=== PATIENT | male | born 1955 | race Caucasian/White ===

== ENCOUNTER 2016-09-25 09:14 | Outpatient (CLI) | payer MEDICARE ==
[2016-09-25] MEDS ORDERED: IOPAMIDOL-300 100 ML VIAL IVP ONE (10:40)
[2016-09-25] MEDS ORDERED: IOPAMIDOL-300 50 ML VIAL PO ONE (10:40)
--- NOTE | 2016-09-25 20:45 | CT Report ---
CONTRAST ENHANCED CT EXAM OF THE CHEST: 09/25/2016 CLINICAL HISTORY: A 60-year-old male with pain and cough as well as shortness of breath. COMPARISON: 07/02/2008 TECHNIQUE: Patient received 100 mL of Isovue-300 as a contrast agent. CAT scan of the chest was don e at 5 x 5 mm intervals with sagittal, coronal and axial reconstructions. In accordance with CT protocol optimization, one or more of the following dose reduction techniques w ere utilized for this exam: automated exposure control, adjustment of mA and/or KV based on patient size, or use of iterative reconstructive technique. FINDINGS: Mild right paratracheal, aorticopulmonary and anterior carinal adenopathy is once again no scout and unchanged. Normal cardiac size is seen with extensive coronary artery calcification noted in all three coronary arteries. Left lung shows no significant abnormality. Right lung demonstrates subpleural densities along the lateral aspect of the right upper lobe in asso ciation with mild adjacent parenchymal disease in the lateral aspect of the anterior segment of the r ight upper lobe. These findings were not evident on preceding chest CT from 2008. Most likely consi deration is an inflammatory process such as a pneumonia, either a developing pneumonia or a resolving one. Secondary consideration would be TB. Recommend patient be carefully followed. Suggest a repe at CT in 6-8 weeks for further evaluation. Axillary regions show no significant abnormality. Bones show no significant abnormality. Upper abdomen demonstrates normal adrenal glands. IMPRESSION: SEVERAL PROMINENT SUBPLEURAL DENSITIES ARE SEEN ALONG THE LATERAL ASPECT OF THE ANTERIOR SEGMENT OF T HE RIGHT UPPER LOBE IN ASSOCIATION WITH SOME ADJACENT MILD PARENCHYMAL DISEASE WITHIN THE RIGHT UPPER LOBE'S ANTERIOR SEGMENT. THESE FINDINGS WERE NOT EVIDENT ON PRIOR EXAMINATION FROM 07/02/2008. THE Y MOST LIKELY REPRESENT AN INFLAMMATORY PROCESS. PRIMARY CONSIDERATION IS A ROUTINE COMMUNITY ACQUIR ED PNEUMONIA. SECONDARY POSSIBILITY IS TB. RECOMMEND A REPEAT CT OF THE CHEST IN 6-8 WEEKS FOR FURT HER EVALUATION. MILD MEDIASTINAL ADENOPATHY IS ONCE AGAIN NOTED AND UNCHANGED COMPARED TO 07/02/2008. NORMAL CARDIAC SIZE IS NOTED WITH EXTENSIVE CORONARY ARTERY CALCIFICATION SEEN. JOB #: [id number] [id number] JOB #:[id number]
--- NOTE | 2016-09-25 21:23 | CT Report ---
CONTRAST ENHANCED CT EXAM OF THE ABDOMEN AND PELVIS: 09/25/2016 COMPARISON: 02/22/[address] exam of the abdomen and pelvis. TECHNIQUE: Contrast enhanced CT of the abdomen and pelvis was done immediately after patient's contr ast enhanced chest CT. Axial, coronal and sagittal reconstructions were obtained at 5 x 5 mm interva ls. In accordance with CT protocol optimization, one or more of the following dose reduction techniques w ere utilized for this exam: automated exposure control, adjustment of mA and/or KV based on patient size, or use of iterative reconstructive technique. FINDINGS: Liver and spleen appear normal. Pancreas appears normal. Gallbladder shows no wall thick ening. The pancreatic duct is seen. It is slightly prominent, but most likely normal. It at most m easures 2-3 mm in diameter. Common hepatic, common bile duct appear normal. Adrenal glands are normal. Kidneys show no significant abnormality. No pyelocalyceal system dilatat ion is seen. Ureters are not distended. Bladder shows no obvious abnormality. Periaortic and pericaval region demonstrates extensive calcification in the abdominal aorta. Extensi ve calcification is seen at the origin of each renal artery. Calcification is seen in the proximal a spect of the superior mesenteric artery, but is not seen involving the celiac artery. Extensive calc ification is noted in the common iliac arteries and proximal femoral arteries. No significant adenop athy is seen. Bowel gas pattern shows numerous diverticula in the proximal to mid sigmoid colon. Normal small kareem l is seen. Previously noted diverticulitis on 02/22/2016 has completely resolved. There is no evide nce of diverticulitis seen involving the sigmoid colon on today's exam. Bones demonstrate left total hip prosthesis in place in anatomical position and alignment. Anterior spurring and degenerative disk disease is noted in the lumbar spine. Anterior spurring is seen in th e thoracic spine. IMPRESSION: SIGNIFICANT DIVERTICULOSIS IS ONCE AGAIN NOTED INVOLVING THE SIGMOID COLON WITHOUT EVIDENCE OF DIVERT ICULITIS. EXTENSIVE ATHEROSCLEROSIS INVOLVING THE ABDOMINAL AORTA AND THE ORIGIN WELL THE PROXIMAL ASPECT OF EACH RENAL ARTERY. LEFT TOTAL HIP PROSTHESIS IS SEEN IN PLACE. JOB #: [id number] EXT JOB #:[id number]
== END 2016-09-25 09:15 | disposition home or self-care (01) ==
LOC: DI 09:14
PROVIDERS: ATTEND Physician Assistant
DX: R10.9 Unspecified abdominal pain (principal); I25.10 Atherosclerotic heart disease of native coronary artery without angina pectoris; R91.8 Other nonspecific abnormal finding of lung field; R59.0 Localized enlarged lymph nodes; K57.30 Diverticulosis of large intestine without perforation or abscess without bleeding; I70.0 Atherosclerosis of aorta; R10.30 Lower abdominal pain, unspecified
CPT/HCPCS: 71260; 74177; Q9967

== ENCOUNTER 2018-06-22 13:30 | Outpatient (CLI) | payer MEDICARE ==
--- NOTE | 2018-06-23 15:21 | XRAY Report ---
Reason: Cervicalgia Procedure Date: 06/22/2018 Accession Number: [id number] / [id number] Procedure: XR - Cervical Spine 2 View CPT Code: FULL RESULT: EXAM: CERVICAL SPINE RADIOGRAPHY EXAM DATE: 06/22/2018 02:38 PM. CLINICAL HISTORY: Cervicalgia. COMPARISONS: None. TECHNIQUE: 3 views. FINDINGS: Alignment: Cervical spine and head are tilted towards the left. However, no significant intrinsic scoliosis of the cervical spine is demonstrated. There is approximately 2 mm, grade 1 anterolisthesis at C2-C3, 2 mm, grade 1 retrolisthesis at C3-C4, 2 mm, grade 1 retrolisthesis at C4-C5, and 2 mm, grade 1 retrolisthesis at C5-C6. There is osseous overlap of the odontoid view, rendering it somewhat suboptimal. The lateral masses of C1 appear grossly aligned on the lateral masses of C2. Bones: As described above, there is somewhat suboptimal evaluation of C1-C2 due to osseous overlap on the odontoid view. However, within this limitation, no conspicuous fracture is identified. Disks: There is severe disk height loss at C5-C6 with moderate endplate spurring. Moderate disk height loss and mild spurring present at C3-C4, C4-C5, C6-C7, and C7-T1. Facets: There appears to be ankylosis or partial ankylosis of the C2-C3 facets. Moderate-severe facet degeneration present at C3-C4 and C7-T1. Mild facet degeneration present elsewhere. Soft Tissues: No prevertebral soft tissue swelling. Visualized lung apices are clear. IMPRESSION: 1. Somewhat suboptimal evaluation of C1-C2 secondary to osseous overlap on the odontoid view. 2. Multilevel degenerative changes, as described above. This includes severe degenerative disk disease at C5-C6 and moderate-severe facet degeneration at C3-C4 and C7-T1. 3. Grade 1 anterolisthesis at C2-C3 and grade 1 retrolisthesis at C3-C4, C4-C5, and C5-C6. RADIA
--- NOTE | 2018-06-23 15:41 | XRAY Report ---
Reason: CERVICALGIA,PAIN IN THORACIC SPINE,SPINAL STENOSIS Procedure Date: 06/22/2018 Accession Number: [id number] / [id number] Procedure: XR - Thoracic Spine 2 View CPT Code: FULL RESULT: EXAM: THORACIC SPINE RADIOGRAPHY EXAM DATE: 06/22/2018 02:38 PM. CLINICAL HISTORY: Thoracic spine pain. COMPARISON: None. TECHNIQUE: 2 views. FINDINGS: Alignment: There is suboptimal evaluation of T1 and T2 on lateral view secondary to osseous overlap with the shoulders. However, no spondylolisthesis is demonstrated. There is mild apex right curvature of the thoracic spine with Hannah angle of approximately 12 degrees from T5-T11. Bones: As described above, partial obscuration of the upper thoracic spine from osseous overlap. However, no conspicuous acute fracture is demonstrated. Disks: Moderate multilevel degenerative disk disease is present throughout the thoracic spine with disk height loss and endplate spurring. Soft Tissues: The visualized portions of the lungs are clear. IMPRESSION: 1. Suboptimal evaluation of T1 and T2 secondary to osseous overlap with the shoulders. 2. Moderate multilevel degenerative disk disease throughout the thoracic spine. RADIA ADDENDUM: 06/23/18 15:42 Addendum is made to the impression. 3. Dextroscoliosis of the thoracic spine.
--- NOTE | 2018-06-23 15:54 | XRAY Report ---
Reason: CERVICALGIA,PAIN IN THORACIC SPINE,SPINAL STENOSIS Procedure Date: 06/22/2018 Accession Number: [id number] / [id number] Procedure: XR - Lumbar Spine 2 View CPT Code: FULL RESULT: EXAM: LUMBOSACRAL SPINE RADIOGRAPHY EXAM DATE: 06/22/2018 02:38 PM. CLINICAL HISTORY: Back pain. COMPARISONS: CT of the abdomen and pelvis from 09/25/2016. TECHNIQUE: 3 views. FINDINGS: Alignment: There is levoscoliosis of the lumbar spine with Hannah angle of 17 degrees from L1-L4. Bones: Five [id number] lumbar vertebral bodies are present. No acute fracture. Disks: Severe disk height loss at L3-L4 with endplate sclerosis and spurring. This is asymmetrically greater on the right secondary to levoscoliosis. Severe disk height loss with endplate sclerosis and spurring also present at L5-S1. Moderate-severe disk height loss present at L4-L5. Facets: Moderate-severe facet degeneration in the lower lumbar spine. Sacroiliac Joints: Alignment is within normal limits. Soft Tissues: The visualized bowel gas pattern is unremarkable. Aortic and iliac artery calcifications demonstrated. IMPRESSION: 1. Multilevel degenerative change, including severe degenerative disk disease at L3-L4 and L5-S1. 2. Mild levoscoliosis of the lumbar spine. RADIA
== END 2018-06-22 13:31 | disposition home or self-care (01) ==
LOC: DI 13:30
PROVIDERS: ATTEND Physician Assistant
DX: M50.31 Other cervical disc degeneration, high cervical region (principal); M47.9 Spondylosis, unspecified; M43.12 Spondylolisthesis, cervical region; M51.34 Other intervertebral disc degeneration, thoracic region; M41.84 Other forms of scoliosis, thoracic region; M51.36 Other intervertebral disc degeneration, lumbar region; M51.37 Other intervertebral disc degeneration, lumbosacral region; M41.86 Other forms of scoliosis, lumbar region
CPT/HCPCS: 72040; 72070; 72100

== ENCOUNTER 2018-08-26 15:31 | Emergency (ER) | payer MEDICARE ==
[2018-08-26] MEDS ORDERED: LIDOCAINE 1%-EPI 1:100000 30 ML MDV SUBQ STA (15:48)
--- NOTE | 2018-08-26 15:50 | ED Physician Documentation ---
History of Present Illness - Stated complaint Stated Complaint: LT KNEE PX - Chief complaint Chief Complaint: Ext Problem - History obtained from History obtained from: Patient - History of Present Illness Timing: Other (62-year-old gentleman with oral medication controlled type 2 diabetes presents with about 5 days of progressive anterior left knee pain similar to a remote bursitis he had in the other knee about 30 years ago. He denies any fevers or chills. He went to the clinic today and they referred him here for concern for septic joint.) Review of Systems Constitutional: denies: Fever, Chills, Myalgias, Fatigue Nose: reports: Reviewed and negative Cardiac: reports: Reviewed and negative Respiratory: reports: Reviewed and negative PD PAST MEDICAL HISTORY - Past Medical History Cardiovascular: Hypertension, High cholesterol Respiratory: COPD Endocrine/Autoimmune: Other GI: Pancreatitis, Other : None HEENT: None Psych: None Musculoskeletal: Osteoarthritis, Chronic back pain Derm: None - Past Surgical History Past Surgical History: Yes General: Colonoscopy HEENT: Tonsil/Adenoidectomy - Present Medications Home Medications: Ambulatory Orders Medication Instructions Recorded Confirmed Albuterol Sulfate [Proventil Hfa] 1 puffs DAILY 06/14/15 02/22/16 Aspirin [Denise Chewable] 81 mg PO DAILY 06/14/15 02/22/16 Budesonide/Formoterol Fumarate 1 puffs BID 06/14/15 02/22/16 [Symbicort 160-4.5 Mcg Inhaler] Cholecalciferol (Vitamin D3) 5,000 unit PO DAILY 06/14/15 02/22/16 [Vitamin D] Cyclobenzaprine [Flexeril] 1 tab BID 06/14/15 02/22/16 Metoprolol Tartrate [Lopressor] 150 mg PO BID 06/14/15 02/22/16 RX: Losartan Potassium 1 tab DAILY 06/14/15 02/22/16 RX: Magnesium Citrate [Citroma] 296 ml PO DAILY PRN #2 bottle 06/14/15 02/22/16 RX: oxyCODONE [Roxicodone] 5 mg DAILY 06/14/15 02/22/16 Tiotropium [place] [Spiriva] 1 puffs DAILY 06/14/15 02/22/16 Ciprofloxacin HCl [Cipro] 500 mg PO BID #20 tablet 02/22/16 Docusate Sodium 250Mg Capsule 250 mg PO DAILY #30 capsule 02/22/16 [Colace 250Mg Capsule] Metronidazole [Flagyl] 500 mg PO BID #20 tablet 02/22/16 RX: amLODIPine [Norvasc] 10 mg PO DAILY 02/22/16 02/22/16 Cephalexin [Keflex] 500 mg PO Q6H #28 capsule 08/26/18 - Allergies Allergies/Adverse Reactions: Allergies Allergy/AdvReac Type Severity Reaction Status Date / Time hydrochlorothiazide Allergy Severe Emesis Verified 08/26/18 15:41 acetaminophen [From Vicodin] Allergy Intermediate Itching Verified 08/26/18 15:41 hydrocodone bitartrate * Allergy Intermediate Itching Verified 08/26/18 15:41 [From Vicodin] BLAS Inhibitors Allergy Unknown Verified 08/26/18 15:41 codeine AdvReac Respiratory Verified 08/26/18 15:41 - Social History Does the pt smoke?: Yes Smoking Status: Current every day smoker Does the pt drink ETOH?: Yes Does the pt have substance abuse?: No - Immunizations Immunizations are current?: Yes PD ED PE NORMAL - Vitals Vital signs reviewed: Yes - General General: Alert and oriented X 3, No acute distress - Derm Derm: Normal color, Warm and dry - Extremities Extremities: Other (Mild redness over the anterior left patella but without really any patellar effusion. There is a small knee effusion. Passive range of motion is not super painful but it is painful. He is able to walk and bear weight but with a limp.) - Neuro Neuro: Alert and oriented X 3, Normal speech Results - Vitals Vitals: Vital Signs - 24 hr 08/26/18 08/26/18 15:39 17:10 Temperature 36.7 C 36.5 C Heart Rate 91 84 Respiratory 14 16 Rate Blood Pressure 167/70 H 151/72 H O2 Saturation 96 96 Oxygen O2 Source Room air - Labs Labs: Laboratory Tests 08/26/18 16:00 Fluid Source SYNOVIAL Fluid Color BLOODY Fluid Clarity BLOODY Fluid WBC 0 Fluid RBC 8030 Procedures - Arthrocentesis Joint: Knee, Left Preparation: Consent obtained, Sterile prep and drape Anesthesia: Lidocaine 1% Fluid: Bloody, Sent for cell count, Sent for culture, Fluid obtained - cc (2ml) Departure - Departure Disposition: 01 Home, Self Care Clinical Impression: Bursitis, prepatellar, left Condition: Good Record reviewed to determine appropriate education?: Yes Instructions: ED Bursitis Prescriptions: Cephalexin [Keflex] 500 mg PO Q6H #28 capsule Comments: The knee fluid itself looks fine, there is no evidence of infection. Return if it becomes more puffy, we may need to incise it if that happens. Follow-up with your doctor in 2 days for wound check. Also return if worse or feverish. Discharge Date/Time: 08/26/18 17:12
[2018-08-26] MEDS ORDERED: cephALEXin 250 MG CAPSULE PO STA (17:06)
[2018-08-26 17:11] VITALS: BP 151/72
[2018-08-26 17:13] LABS: BF SOURCE SYNOVIAL; CC,BF RBC 8030 /mm^3
[2018-08-26 17:14] LABS: BF COLOR BLOODY
== END 2018-08-26 17:12 | disposition home or self-care (01) ==
LOC: ED 15:31
DX: M70.42 Prepatellar bursitis, left knee (principal); I10 Essential (primary) hypertension; E11.9 Type 2 diabetes mellitus without complications; Z79.84 Long term (current) use of oral hypoglycemic drugs; F17.200 Nicotine dependence, unspecified, uncomplicated
CPT/HCPCS: 20610; 87070; 87205; 89051; 99283; A9270

== ENCOUNTER 2019-05-15 16:24 | Outpatient (CLI) | payer MEDICARE ==
--- NOTE | 2019-05-15 23:34 | Ultrasound Report ---
Reason: LOWER ABD PAIN Procedure Date: 05/15/2019 Accession Number: [id number] / [id number] Procedure: US - Abdomen Complete CPT Code: Final Report FULL RESULT: EXAM: ABDOMEN ULTRASOUND EXAM DATE: 05/15/2019 04:31 PM. CLINICAL HISTORY: Lower abdominal pain. COMPARISON: ABDOMEN/PELVIS W/ 09/25/2016 10:30 AM. TECHNIQUE: Real-time scanning was performed with static images obtained. FINDINGS: Liver: Nodular liver margin consistent with cirrhosis. Echogenic focus with hypoechoic periphery in the anterior liver measuring 1.4 x 1.1 x 1.2 cm. 24 cm. Main portal vein flow: Hepatopetal. Gallbladder: Focal thickening at the fundus measuring 3.6 mm. This is nonspecific in the setting of ascites. No gallstones are seen. No sonographic Hilliard sign. Biliary System: Common bile duct measures 5 mm. No intrahepatic or extrahepatic ductal dilatation. Pancreas: Pancreas is not well seen due to bowel gas. Visualized portions appear normal. Kidneys: Right: 11.0 cm longitudinally. Normal. No contour-deforming mass, stones, or hydronephrosis. Left: 12.0 cm longitudinally. Upper pole cyst measuring 0.9 x 0.8 x 0.7 cm. No contour-deforming mass, stones, or hydronephrosis. Spleen: 14.2 x 5.0 x 14.4 cm. Volume 533 cc. Splenule measuring 1.0 x 1.0 x 1.3 cm. Aorta and Inferior Vena Cava: Unremarkable where seen. Other: Large amount of ascites. IMPRESSION: 1. Enlarged liver measuring 24 cm. Nodular liver margin consistent with cirrhosis. 2. Large amount of ascites. 3. No cholelithiasis or cholecystitis identified. 4. No biliary dilatation seen. 5. Echogenic focus in the anterior liver measuring 1.4 x 1.1 x 1.2 cm with hypoechoic rim. Possible hemangioma. 6. Splenomegaly. RADIA
== END 2019-05-15 16:25 | disposition home or self-care (01) ==
LOC: DI 16:24
PROVIDERS: ATTEND Registered Nurse
DX: R18.8 Other ascites (principal); R16.2 Hepatomegaly with splenomegaly, not elsewhere classified
CPT/HCPCS: 76700

== ENCOUNTER 2019-07-29 07:39 | Outpatient (CLI) | payer MEDICARE ==
[2019-07-29 12:17] LABS: BF CLARITY HAZY; BF COLOR STRAW; CC,BF RBC 1000 /mm^3
--- NOTE | 2019-07-29 12:20 | Ultrasound Report ---
Reason: ALCOHOLIC CIRRHOSIS OF LIVER WITH ASCITES Procedure Date: 07/29/2019 Accession Number: [id number] / [id number] Procedure: US - Abdominal Paracentesis CPT Code: Final Report FULL RESULT: EXAM: ULTRASOUND-GUIDED PARACENTESIS EXAM DATE: 07/29/2019 10:45 AM. CLINICAL HISTORY: ALCOHOLIC CIRRHOSIS OF LIVER WITH ASCITES. COMPARISON: ABDOMEN COMPLETE 05/15/2019 4:31 PM ABDOMEN/PELVIS W/ 09/25/2016 10:30 AM. TECHNIQUE: Risks, benefits, and alternatives to the procedure were discussed with the patient. All questions answered. Written and verbal consent obtained. Patient was placed in the supine position and the skin overlying the right lower quadrant ascites marked with sonographic guidance. The skin was sterilely prepped and draped, and 1% buffered lidocaine was used for local anesthesia. An 18-gauge Strix Systemseh catheter was advanced into the peritoneal ascites and fluid aspirated. Upon completion, the catheter was removed. Fluid was sent to the laboratory for evaluation as requested by the referring provider. FINDINGS: A total of 5700 mL of fluid was removed without immediate complication. Patient tolerated procedure well. IMPRESSION: Ultrasound-guided paracentesis without immediate complications. Fluid sent to the laboratory for evaluation. RADIA
[2019-07-29 12:26] LABS: LYMPHOCYTES %,BODY FLUID 29; MESOTHELIAL %, BF 26 %; MONOCYTES %,BODY FLUID 4 %
[2019-07-29 12:28] LABS: BF SOURCE PERITONEAL
--- NOTE | 2019-07-29 12:55 | Ultrasound Report ---
Reason: ALCOHOLIC CIRRHOSIS OF LIVER WITH ASCITES Procedure Date: 07/29/2019 Accession Number: [id number] / [id number] Procedure: US - Arterial Visceral Complete CPT Code: Final Report FULL RESULT: EXAM: ABDOMINAL ULTRASOUND WITH VASCULAR IMAGING OF THE LIVER EXAM DATE: 07/29/2019 11:59 AM. CLINICAL HISTORY: ALCOHOLIC CIRRHOSIS OF LIVER WITH ASCITES. COMPARISON: ABDOMEN COMPLETE 05/15/2019 4:31 PM ABDOMEN/PELVIS W/ 09/25/2016 10:30 AM ABDOMEN/PELVIS W/ 02/22/2016 7:56 PM ABDOMEN/PELVIS W/ 06/14/2015 3:12 PM. TECHNIQUE: Real-time sonographic vascular imaging was performed by the community theater actor through the liver with a linear transducer utilizing color-flow, Doppler flow, and spectral analysis. Multiple sales service representative static images were saved for review. FINDINGS: Liver: 22 cm longitudinally. Nodular contour with increased echogenicity. Anterior right lobe vascular echogenic focus 1.8 x 1.5 x 1.0 cm stable compared to the prior ultrasound of 05/15/2019, question hemangioma. Hepatic Vascularity: 1. The hepatic artery is patent, peak systolic velocity 139 cm/sec. 2. Portal vein is patent with normal directional blood flow. Maximum diameter 2.2 cm. 3. Hepatic veins are patent. Gallbladder: Negative. No stones. Wall thickness 2.1 mm Common bile duct 3.9 mm. Pancreas: Imaged portions appear normal. Kidneys: Right 11.1 cm is longitudinally. No stones, hydronephrosis, or solid mass. Left 12.4 cm longitudinally. 8 x 8 x 6 mm lateral midportion cyst. No solid mass, stones, or hydronephrosis. Spleen: 13.8 cm longitudinally. Volume 354 cc. Aorta and inferior vena cava: Unremarkable Fluid: Small amount. Exam is performed status post paracentesis. IMPRESSION: 1. Hepatomegaly with cirrhotic configuration of the liver. 2. Echogenic 1.8 x 1.5 x 1.0 cm focus anterior liver, probably a hemangioma, similar to previous. 3. Normal directional portal venous blood flow. Maximum portal vein diameter 2.2 cm. 4. Borderline splenomegaly. 5. Small amount of residual ascites status post paracentesis. 6. Sub-centimeter left renal cyst.
[2019-07-30] MEDS ORDERED: BUFFERED LIDOCAINE 10 ML SYRINGE IU ONE (13:15)
== END 2019-07-29 07:40 | disposition home or self-care (01) ==
LOC: DI 07:39
PROVIDERS: ATTEND Internal Medicine Gastroenterology
DX: K70.31 Alcoholic cirrhosis of liver with ascites (principal)
CPT/HCPCS: 49083; 81599; 89051; 93306; 93975

== ENCOUNTER 2019-10-12 12:59 | Outpatient (CLI) | payer MEDICARE ==
--- NOTE | 2019-10-12 17:00 | Ultrasound Report ---
Reason: ALCOHOL DEPENDENCE,UNCOMPLICATED Procedure Date: 10/12/2019 Accession Number: [id number] / [id number] Procedure: US - Aorta Screening CPT Code: Final Report FULL RESULT: PROCEDURE: Aorta Screening INDICATIONS: ALCOHOL DEPENDENCE,UNCOMPLICATED TECHNIQUE: Real time scanning was performed of the aorta and iliac arteries, with image documentation. COMPARISON: Abdomen ultrasound 05/15/2019 FINDINGS: Aorta: Proximal aortic diameter measures 2.2 x 2.1 cm. Mid and distal aorta is not visualized secondary to ascites. Iliac arteries: Not visualized secondary to ascites. IMPRESSION: Proximal aorta is unremarkable. Mid and distal portions as well as common iliac arteries aren't secured by prominent abdominal ascites. Reviewed by: Candice Nieto MD on 10/12/2019 4:59 PM PDT Approved by: Candice Nieto MD on 10/12/2019 4:59 PM PDT Station ID: [id number]
== END 2019-10-12 13:00 | disposition home or self-care (01) ==
LOC: DI 12:59
PROVIDERS: ATTEND Family Medicine
DX: Z01.89 Encounter for other specified special examinations (principal)
CPT/HCPCS: 76706

== ENCOUNTER 2020-02-25 09:02 | Outpatient (CLI) | payer MEDICARE | END 2020-02-25 09:03 | disposition home or self-care (01) | LOC: LAB 09:02 | PROVIDERS: ATTEND Internal Medicine | DX: Z53.9 Procedure and treatment not carried out, unspecified reason (principal) ==

== ENCOUNTER 2020-02-25 09:03 | Outpatient (CLI) | payer MEDICARE ==
[2020-02-25 09:55] LABS: BASOPHILS # (AUTO) 0.1 10^3/uL (0.0-0.1); BASOPHILS % (AUTO) 0.7 %; EOSINOPHILS # (AUTO) 0.2 10^3/uL (0.0-0.7); HGB - HEMOGLOBIN 12.4 g/dL (14.0-18.0); LYMPHOCYTES # (AUTO) 1.2 10^3/uL (1.5-3.5); LYMPHOCYTES % (AUTO) 14.3 %; MEAN CORPUSCULAR HEMOGLOBIN 32.2 pg (27.0-31.0); MEAN CORPUSCULAR HGB CONC 33.6 g/dL (32.0-36.0); MEAN CORPUSCULAR VOLUME 95.8 fL (80.0-94.0); MEAN PLATELET VOLUME 8.3 fL (7.4-11.4); MONOCYTES # (AUTO) 0.6 10^3/uL (0.0-1.0); MONOCYTES % (AUTO) 6.8 %; NEUTROPHILS # (AUTO) 6.2 10^3/uL (1.5-6.6); NEUTROPHILS % (AUTO) 75.7 %; PLT - PLATELET COUNT 192 10^3/uL (130-450); RED BLOOD COUNT 3.85 10^6/uL (4.70-6.10); RED CELL DISTRIBUTION WIDTH 13.1 % (12.0-15.0); WHITE BLOOD COUNT 8.1 x10^3/uL (4.8-10.8)
[2020-02-25 09:59] LABS: INR 1.2 (0.8-1.2); PT - PROTHROMBIN TIME 13.5 secs (9.9-12.6)
[2020-02-25 10:12] LABS: PARTIAL THROMBOPLASTIN TIME 30.5 secs (24.9-33.3)
--- NOTE | 2020-02-25 12:11 | Ultrasound Report ---
PROCEDURE: Abdominal Paracentesis INDICATIONS: ASCITIES DUE TO ALCOHOLIC CIRRHOSIS TECHNIQUE: The indications, alternatives, benefits, risks, and complications of the procedure were explained to the patient. Written informed consent was obtained and placed in the chart. The abdomen and pelvis were examined sonographically, and an appropriate site was chosen for paracentesis. The skin was pre pared and draped in the usual sterile fashion, and 1% lidocaine was infiltrated from the skin down th rough the peritoneal surface. A 19-gauge catheter-covered needle was then introduced into the perito connor space, the catheter was advanced and the needle was withdrawn, and thereafter peritoneal fluid w as withdrawn. The catheter was then removed and a dressing was applied. The fluid was discarded if the clinician did not order diagnostic testing of the fluid. COMPARISON: FINDINGS: Access site: Right lower quadrant Needle: One-Step centesis catheter with introducer needle. Fluid volume and description: 5 L clear yellow Fluid sent for diagnostic testing: None Medications: 1% lidocaine for local anaesthesia. Complications: None. IMPRESSION: Successful ultrasound-guided paracentesis. Reviewed by: Candice Nieto MD on 02/25/2020 12:09 PM PDT Approved by: Candice Nieto MD on 02/25/2020 12:09 PM PDT Station ID: [id number]
--- NOTE | 2020-02-25 12:38 | Ultrasound Report ---
PROCEDURE: Abdominal ultrasound complete INDICATIONS: ALCOHOLIC CIRRHOSIS TECHNIQUE: Real time scanning was performed of the aorta, celiac trunk, superior and inferior mesent kelsey arteries, with color and pulsed Doppler interrogation of the mesenteric vessels. COMPARISON: FINDINGS: The liver is enlarged with a heterogenous echotexture with irregular margins consistent with history of cirrhosis. There is a moderate amount of ascites. In the anterior dome of the right lobe of the l iver there is a 1.4 x 1.2 x 1.8 cm hyperechoic mass. The aorta and IVC are patent. The hepatic vein is patent. The right kidney has a normal size and appearance with normal vascularity. The spleen is normal. Sple mandy varices are noted. No intrahepatic biliary ductal dilatation. The pancreas is mostly obscured. Th e gallbladder is normal with no stones, wall thickening, or pericholecystic fluid. The left kidney rodriguez s a normal size and appearance with normal vascularity. Simple cysts measuring 1.3 cm on the right 1 cm on the left are noted. The common bile duct measures 3.7 mm. IMPRESSION: 1. Echogenic 1.4 x 1.2 x 1.8 cm focus in the right lobe of the liver anteriorly is unchanged compared to prior ultrasounds and is most consistent with a hemangioma. 2. Simple renal cysts. 3. Hepatomegaly and cirrhosis. 3. Ascites. Reviewed by: Lee Crystal on 02/25/2020 12:36 PM PDT Approved by: Lee Crystal on 02/25/2020 12:36 PM PDT Station ID: [id number]
== END 2020-02-25 09:04 | disposition home or self-care (01) ==
LOC: DI 09:03
PROVIDERS: ATTEND Nurse Practitioner Family
DX: K70.31 Alcoholic cirrhosis of liver with ascites (principal); N28.1 Cyst of kidney, acquired
CPT/HCPCS: 36415; 49083; 76700; 85025; 85610; 85730; 93975

== ENCOUNTER 2020-02-25 09:08 | Outpatient (CLI) | payer MEDICARE ==
--- NOTE | 2020-02-26 10:44 | Ultrasound Report ---
PROCEDURE: Abdomen Complete INDICATIONS: Alcoholic CIRRHOSIS OF LIVER W/ASCITES TECHNIQUE: Real-time scanning was performed of the abdominal and retroperitoneal organs, with image documentatio n. COMPARISON: Abdomen ultrasound 05/15/2019, CT abdomen pelvis 09/25/2016. FINDINGS: Liver: Liver is enlarged measuring 22.2 cm. There is a diffuse nodular appearance. Within the anteri or right dome there is a focus of nodular central area increased echogenicity measuring 14 x 12 x 18 mm. Peripherally there is adjacent low echogenicity. It is unchanged compared to recent ultrasound. T here is a focus of hypoattenuation within this region on CT 2017. Gallbladder: Color wall is within normal limits measuring 2 mm. No visualized stone. Biliary ducts: Intrahepatic bile ducts are non-dilated. Extrahepatic bile duct caliber measures 4 m m. Normal is 6-7 mm or less in diameter, or 10 mm or less post-cholecystectomy. Pancreas: Visualized portions of the pancreas are sonographically normal. Spleen: Spleen is normal in size and homogeneous in echotexture. Kidneys: Kidneys are normal in size and echotexture. Right kidney measures 9.8 cm long; left kidney measures 11 cm long. No hydronephrosis or nephrolithiasis. No solid masses. Bilateral simple cyst s are noted measuring 13 x 11 x 11 mm on the right and 11 x 8 x 10 mm on the left. Aorta: Visualized aorta is normal in caliber at less than 3 cm. Iliacs: Proximal common iliac arteries are nonvisualized IVC: Intrahepatic inferior vena cava is patent. Miscellaneous: Abdominal ascites is present. IMPRESSION: Unchanged hepatic echogenic focus as above compared to ultrasound of 05/15/2019. Hypodensity within th is region was present on prior CT 2017. This could represent a possible hemangioma, given stability. However, given underlying appearance of cirrhosis, continued surveillance is recommended, as hepatoce llular carcinoma cannot be definitively excluded. Reviewed by: Candice Nieto MD on 02/25/2020 4:00 PM PDT Approved by: Candice Nieto MD on 02/25/2020 4:00 PM PDT Station ID: [id number]
== END 2020-02-25 09:09 | disposition home or self-care (01) ==
LOC: DI 09:08
PROVIDERS: ATTEND Internal Medicine Gastroenterology
DX: K70.31 Alcoholic cirrhosis of liver with ascites (principal)
CPT/HCPCS: 76700

== ENCOUNTER 2020-04-14 11:51 | Outpatient (CLI) | payer MEDICARE ==
[2020-04-14 12:33] LABS: BASOPHILS # (AUTO) 0.1 10^3/uL (0.0-0.1); BASOPHILS % (AUTO) 0.9 %; EOSINOPHILS # (AUTO) 0.2 10^3/uL (0.0-0.7); EOSINOPHILS % (AUTO) 1.9 %; HGB - HEMOGLOBIN 11.9 g/dL (14.0-18.0); LYMPHOCYTES % (AUTO) 10.9 %; MEAN CORPUSCULAR HEMOGLOBIN 31.6 pg (27.0-31.0); MEAN CORPUSCULAR HGB CONC 32.5 g/dL (32.0-36.0); MEAN CORPUSCULAR VOLUME 97.3 fL (80.0-94.0); MEAN PLATELET VOLUME 8.6 fL (7.4-11.4); MONOCYTES # (AUTO) 0.8 10^3/uL (0.0-1.0); MONOCYTES % (AUTO) 8.5 %; NEUTROPHILS # (AUTO) 6.8 10^3/uL (1.5-6.6); NEUTROPHILS % (AUTO) 77.1 %; PLT - PLATELET COUNT 224 10^3/uL (130-450); RED BLOOD COUNT 3.76 10^6/uL (4.70-6.10); RED CELL DISTRIBUTION WIDTH 13.1 % (12.0-15.0); WHITE BLOOD COUNT 8.8 x10^3/uL (4.8-10.8)
[2020-04-14 12:42] LABS: INR 1.2 (0.8-1.2); PT - PROTHROMBIN TIME 13.2 secs (9.9-12.6)
--- NOTE | 2020-04-14 16:38 | Ultrasound Report ---
PROCEDURE: Abdominal Paracentesis INDICATIONS: ASCITES TECHNIQUE: The indications, alternatives, benefits, risks, and complications of the procedure were explained to the patient. Written informed consent was obtained and placed in the chart. The abdomen and pelvis were examined sonographically, and an appropriate site was chosen for paracentesis. The skin was pre pared and draped in the usual sterile fashion, and 1% lidocaine was infiltrated from the skin down th rough the peritoneal surface. A 19-gauge catheter-covered needle was then introduced into the perito connor space, the catheter was advanced and the needle was withdrawn, and thereafter peritoneal fluid w as withdrawn. The catheter was then removed and a dressing was applied. The fluid was discarded if the clinician did not order diagnostic testing of the fluid. COMPARISON: None FINDINGS: Access site: Right lower quadrant Needle: One-Step centesis catheter with introducer needle. Fluid volume and description: 5 cc clear yellow Fluid sent for diagnostic testing: None Medications: 1% lidocaine for local anaesthesia. Complications: None. IMPRESSION: 1. Successful ultrasound-guided paracentesis. Reviewed by: Candice Nieto MD on 04/14/2020 4:37 PM PST Approved by: Candice Nieto MD on 04/14/2020 4:37 PM PST Station ID: [id number]
== END 2020-04-14 11:52 | disposition home or self-care (01) ==
LOC: DI 11:51
PROVIDERS: ATTEND Physician Assistant
DX: K70.31 Alcoholic cirrhosis of liver with ascites (principal)
CPT/HCPCS: 36415; 49083; 85025; 85610; 85730

== ENCOUNTER 2020-07-05 08:41 | Outpatient (CLI) | payer MEDICARE ==
[2020-07-05 08:59] LABS: BASOPHILS # (AUTO) 0.1 10^3/uL (0.0-0.1); BASOPHILS % (AUTO) 0.8 %; EOSINOPHILS # (AUTO) 0.2 10^3/uL (0.0-0.7); EOSINOPHILS % (AUTO) 2.3 %; HCT - HEMATOCRIT 34.8 % (42.0-52.0); HGB - HEMOGLOBIN 11.2 g/dL (14.0-18.0); LYMPHOCYTES # (AUTO) 0.9 10^3/uL (1.5-3.5); MEAN CORPUSCULAR HEMOGLOBIN 30.6 pg (27.0-31.0); MEAN CORPUSCULAR HGB CONC 32.2 g/dL (32.0-36.0); MEAN CORPUSCULAR VOLUME 95.1 fL (80.0-94.0); MEAN PLATELET VOLUME 8.1 fL (7.4-11.4); MONOCYTES # (AUTO) 0.6 10^3/uL (0.0-1.0); MONOCYTES % (AUTO) 7.2 %; NEUTROPHILS # (AUTO) 6.9 10^3/uL (1.5-6.6); NEUTROPHILS % (AUTO) 79.2 %; PLT - PLATELET COUNT 208 10^3/uL (130-450); RED BLOOD COUNT 3.66 10^6/uL (4.70-6.10); RED CELL DISTRIBUTION WIDTH 11.9 % (12.0-15.0); WHITE BLOOD COUNT 8.7 x10^3/uL (4.8-10.8)
[2020-07-05 10:13] LABS: PARTIAL THROMBOPLASTIN TIME 30.6 secs (24.9-33.3)
[2020-07-05 11:15] LABS: INR 1.3 (0.8-1.2)
--- NOTE | 2020-07-05 15:22 | Ultrasound Report ---
PROCEDURE: Abdominal Paracentesis INDICATIONS: ASCITES DUE TO ALCOHOLIC CIRRHOSIS OF LIVER TECHNIQUE: The indications, alternatives, benefits, risks, and complications of the procedure were explained to the patient. Written informed consent was obtained and placed in the chart. The abdomen and pelvis were examined sonographically, and an appropriate site was chosen for paracentesis. The skin was pre pared and draped in the usual sterile fashion, and 1% lidocaine was infiltrated from the skin down th rough the peritoneal surface. A 19-gauge catheter-covered needle was then introduced into the perito connor space, the catheter was advanced and the needle was withdrawn, and thereafter peritoneal fluid w as withdrawn. The catheter was then removed and a dressing was applied. The fluid was discarded if the clinician did not order diagnostic testing of the fluid. COMPARISON: None. FINDINGS: Access site: Right lower quadrant Needle: One-Step centesis catheter with introducer needle. Fluid volume and description: 10.7 L of serous ascites. The patient then went to clinic for albumin administration. Fluid sent for diagnostic testing: Not requested Medications: 1% lidocaine for local anaesthesia. Complications: None. IMPRESSION: Successful ultrasound-guided paracentesis. Reviewed by: Griffin Jessica MD on 07/05/2020 3:21 PM PST Approved by: Griffin Jessica MD on 07/05/2020 3:21 PM PST Station ID: [id number]
== END 2020-07-05 08:42 | disposition home or self-care (01) ==
LOC: LAB 08:41 → DI 08:42
PROVIDERS: ATTEND Physician Assistant
DX: K70.31 Alcoholic cirrhosis of liver with ascites (principal)
CPT/HCPCS: 36415; 49083; 85025; 85610; 85730

== ENCOUNTER 2020-09-04 20:20 | Outpatient (CLI) | payer MEDICARE | END 2020-09-04 20:21 | disposition home or self-care (01) | LOC: COV 20:20 | PROVIDERS: ATTEND Ophthalmology | DX: Z01.812 Encounter for preprocedural laboratory examination (principal); H25.811 Combined forms of age-related cataract, right eye; E11.9 Type 2 diabetes mellitus without complications; Z20.822 Contact with and (suspected) exposure to COVID-19 ==

== ENCOUNTER 2020-09-07 06:24 | Day surgery (SDC) | payer MEDICARE ==
[~2020-09-07 06:24] MED LIST: KETOROLAC 0.45% OPHTH DROPS ONE; PROPARACAINE 0.5% OPHTH DROPS 15 ML ONE
[2020-09-07] MEDS ORDERED: CYCLOPENTOLATE 1% OPHTH DROPS 2 ML RIGHTEYE ONE (06:45)
[2020-09-07] MEDS ORDERED: PHENYLEPHRINE 2.5% OPHTH 2 ML DROPS RIGHTEYE ONE (06:45)
[2020-09-07] MEDS ORDERED: BSS/LIDOCAINE/EPINEPHRINE 1 ML SYRINGE ONE (06:57)
[2020-09-07] MEDS ORDERED: TRIAMCIN/MOXIFLOX OPHTHALMIC 0.6 ML VIAL IO ONE ×2 (06:57→07:33)
[2020-09-07] MEDS ORDERED: BRIMONIDINE 0.2% OPHTH DROPS 5 ML ONE (06:57)
[2020-09-07] MEDS ORDERED: EPINEPHrine 1 MG/ML AMP ONE (06:57)
[2020-09-07] MEDS ORDERED: TIMOLOL 0.5% OPHTH DROPS ONE (06:57)
[2020-09-07] MEDS ORDERED: VANCOMYCIN OPHTHALMI 8MG/0.8ML 8 MG/0.8 ML SYRINGE IO ONE ×2 (06:57→07:33)
[2020-09-07] MEDS ORDERED: LACTATED RINGERS 1,000 ML IV ONE (07:02)
--- NOTE | 2020-09-07 07:07 | ANESTHESIA ---
Pre-Anesthesia VS, & Labs - Diagnosis right senile combined cataract - Procedure right eye cataract extraction with IOL Vital Signs: Temp Pulse Resp BP Pulse Ox 36.6 C 80 16 137/57 H 97 09/07/20 06:40 09/07/20 06:40 09/07/20 06:40 09/07/20 06:40 09/07/20 06:40 Height: 5 ft 4 in Weight (kg): 73.6 kg Body Mass Index: 27.8 BMI Classification: Overweight - NPO >8 hours - Lab Results Current Lab Results: Laboratory Tests 09/07/20 06:57: POC Whole Bld Glucose 132 H Home Medications and Allergies Home Medications: Ambulatory Orders Furosemide [Lasix] 40 mg PO DAILY 09/06/20 Metformin HCl [Fortamet] 1,000 mg PO BID 09/06/20 Omeprazole 40 mg PO DAILY 09/06/20 Tiotropium Cody [Spiriva] 2 puffs PO DAILY 09/06/20 Albuterol Sulfate [Proventil Hfa] 1 puffs PO DAILY 06/14/15 Aspirin [Denise Chewable] 81 mg PO DAILY 06/14/15 Budesonide/Formoterol Fumarate [Symbicort 160-4.5 Mcg Inhaler] 1 puffs PO BID 06/14/15 Cholecalciferol (Vitamin D3) [Vitamin D] 5,000 unit PO DAILY 06/14/15 Cyclobenzaprine [Flexeril] 1 tab PO BID 06/14/15 Losartan Potassium 1 tab PO DAILY 06/14/15 Metoprolol Tartrate [Lopressor] 150 mg PO BID 06/14/15 Tiotropium Cody [Spiriva] 1 puffs PO DAILY 06/14/15 oxyCODONE [Roxicodone] 5 mg PO DAILY 06/14/15 amLODIPine [Norvasc] 10 mg PO DAILY 02/22/16 Furosemide [Lasix] 40 mg PO DAILY 09/06/20 Metformin HCl [Fortamet] 1,000 mg PO BID 09/06/20 Omeprazole 40 mg PO DAILY 09/06/20 Tiotropium Cody [Spiriva] 2 puffs PO DAILY 09/06/20 Allergies/Adverse Reactions: Allergies Allergy/AdvReac Type Severity Reaction Status Date / Time hydrochlorothiazide Allergy Severe Emesis Verified 09/06/20 13:25 acetaminophen [From Vicodin] Allergy Intermediate Itching Verified 09/06/20 13:25 hydrocodone bitartrate * Allergy Intermediate Itching Verified 09/06/20 13:25 [From Vicodin] BLAS Inhibitors Allergy Unknown Verified 09/06/20 13:25 codeine AdvReac Respiratory Verified 09/06/20 13:25 Anes History & Medical History - Medical History Cardiovascular: reports: Hypertension, Peripheral Vascular Disease (s/p stent placement.) Pulmonary: reports: COPD Gastrointestinal: reports: GERD Urinary: reports: None Neuro: reports: None Musculoskeletal: reports: Osteoarthritis, Chronic back pain Endocrine/Autoimmune: reports: Type 2 diabetes Blood Disorders: reports: None Skin: reports: Other Smoking Status: Current every day smoker (1.5 packs per day x 50 years) Psychosocial: reports: Alcohol (daily use. 2-3 beers and 2-3 shots of whiskey per day) History of Cancer?: No - Surgical History General: reports: Hiatal hernia repair, Colonoscopy Eyes Ears Nose Throat (EENT): reports: Rhinoplasty, Tonsil/Adenoidectomy Cardiothoracic: reports: Angioplasty Orthopedic: reports: Hip replacement Exam General: Alert, Oriented x3, Cooperative, No acute distress Dental: WNL Mouth Openin Fingerbreadth Neck Mobility: Normal Mallampati classification: III Thyromental Distance: 4-6 cm Mental/Cognitive Status: Alert/Oriented X3, Normal for patient Plan Anesthesia Type: MAC Consent for Procedure(s) Verified and Reviewed: Yes Code Status: Attempt Resuscitation ASA classification: 3-Severe systemic disease Is this case an emergency?: No
[2020-09-07] MEDS ORDERED: MIDAZOLAM 2 MG/2 ML VIAL ONE (07:08)
[2020-09-07] MEDS ORDERED: BRIMONIDINE 0.2% OPHTH DROPS 5 ML OPTH ONE (07:31)
[2020-09-07] MEDS ORDERED: TIMOLOL 0.5% OPHTH DROPS OPTH ONE (07:32)
[2020-09-07] MEDS ORDERED: CHONDR SULF/HYALURONATE SYRINGE IO ONE (07:32)
[2020-09-07] MEDS ORDERED: EPINEPHrine 1 MG/ML AMP IR ONE (07:32)
[2020-09-07] MEDS ORDERED: PROPARACAINE 0.5% OPHTH DROPS 15 ML EACHEYE ONE (07:33)
[2020-09-07] MEDS ORDERED: BSS/LIDOCAINE/EPINEPHRINE 1 ML SYRINGE IO ONE (07:33)
[2020-09-07] MEDS ORDERED: LACTATED RINGERS 500 ML IV ONE (07:40)
[2020-09-07 08:01] VITALS: BP 137/67
--- NOTE | 2020-09-07 09:26 | PROCEDURE REPORT ---
DATE OF SERVICE: 09/07/2020 Physician: Jose Luis Ferreira MD PREOPERATIVE DIAGNOSIS: Visually significant cataract, right eye. This was his first cataract surgery. POSTOPERATIVE DIAGNOSIS: Visually significant cataract, right eye. This was his first cataract surgery. PROCEDURE: Phacoemulsification with posterior chamber intraocular lens implant, right eye. SURGEON: Jose Luis Ferreira MD ANESTHESIA: Monitored anesthesia care. COMPLICATIONS: None. OPERATIVE INDICATIONS: This is a 64-year-old man with progressive vision loss in the right eye due to 3+ nuclear sclerotic and 1 to 2+ posterior subcapsular cataract. Best corrected visual acuity was 20/30 with glare to 20/60 in the right eye. Indications for surgery are overall decrease in vision, difficulty seeing words on a computer screen, difficulty reading, difficulty seeing words, closed caption or game scores on TV and difficulty seeing street signs. He was consented at length concerning risks and benefits of cataract surgery, after which he expressed a desire to proceed with surgery. OPERATIVE PROCEDURE: The patient was taken into OR #3 and placed under monitored anesthesia care. Surgical timeout was conducted, confirming correct patient, correct procedure and correct surgical site. Prior to surgery in the preanesthesia care unit his cornea was marked with a Jun marker for axis 172 in preparation for a multifocal toric intraocular lens. He was given topical anesthesia and prepped and draped in the usual sterile fashion. The eye was entered at the 12 and 9 o'clock positions. Intracameral Shugarcaine was injected into the anterior chamber followed by Viscoat. A continuous-tear curvilinear capsulorrhexis was performed. The nucleus was hydrodissected and phacoemulsified. The cortex was evacuated using automated infusion and aspiration. Provisc was injected in the capsular bag and a 19.0 multifocal toric intraocular lens inserted into the bag and rotated to axis 172 as previously marked on the cornea. The eye was inflated to physiologic pressure using balanced salt solution and found to be watertight. Approximately 0.25 mL mixture of triamcinolone and moxifloxacin was injected transsclerally into the vitreous in the inferotemporal quadrant. An additional 0.55 mL of a mixture of triamcinolone, moxifloxacin, and vancomycin was injected subconjunctivally in the superior quadrant for infection and inflammation prophylaxis. Wound integrity was checked with Weck-Janina sponges and the axis was confirmed to still be at 172. The patient was taken from the operating room in good condition and given postoperative instructions. TD: 09/07/2020 08:11 ARIANA
--- NOTE | 2020-09-07 13:13 | ANESTHESIA POST OP EVALUATION ---
Anesthesia Post Eval - Post Anesthesia Eval Vitals: Last Vital Signs Temp 37.1 C 09/07/20 07:59 Pulse 81 09/07/20 07:59 Resp 16 09/07/20 07:59 BP 137/67 H 09/07/20 07:59 Pulse Ox 95 09/07/20 07:59 CV Function Including HR & BP: Stable Pain Control: Satisfactory Nausea & Vomiting: Negative Mental Status: Baseline Respiratory Status: Airway Patent Hydration Status: Satisfactory Anesthesia Complications: None
== END 2020-09-07 06:25 | disposition home or self-care (01) ==
LOC: SDS 06:24
PROVIDERS: ATTEND Ophthalmology
DX: E11.36 Type 2 diabetes mellitus with diabetic cataract (principal); H25.811 Combined forms of age-related cataract, right eye; Z79.84 Long term (current) use of oral hypoglycemic drugs; J45.909 Unspecified asthma, uncomplicated; I10 Essential (primary) hypertension; E66.3 Overweight; Z68.27 Body mass index [BMI] 27.0-27.9, adult; J44.9 Chronic obstructive pulmonary disease, unspecified; F17.210 Nicotine dependence, cigarettes, uncomplicated
CPT/HCPCS: 66984; A9270; J3490; J7120; V2632

== ENCOUNTER 2020-10-03 12:48 | Outpatient (CLI) | payer MEDICARE ==
[2020-10-03 12:11] LABS: BASOPHILS # (AUTO) 0.1 10^3/uL (0.0-0.1); BASOPHILS % (AUTO) 0.7 %; EOSINOPHILS # (AUTO) 0.1 10^3/uL (0.0-0.7); EOSINOPHILS % (AUTO) 1.2 %; HCT - HEMATOCRIT 30.1 % (42.0-52.0); HGB - HEMOGLOBIN 9.9 g/dL (14.0-18.0); LYMPHOCYTES # (AUTO) 0.7 10^3/uL (1.5-3.5); LYMPHOCYTES % (AUTO) 7.5 %; MEAN CORPUSCULAR HEMOGLOBIN 31.2 pg (27.0-31.0); MEAN CORPUSCULAR HGB CONC 32.9 g/dL (32.0-36.0); MEAN PLATELET VOLUME 8.2 fL (7.4-11.4); MONOCYTES # (AUTO) 0.6 10^3/uL (0.0-1.0); MONOCYTES % (AUTO) 6.1 %; NEUTROPHILS # (AUTO) 7.8 10^3/uL (1.5-6.6); PLT - PLATELET COUNT 224 10^3/uL (130-450); RED BLOOD COUNT 3.17 10^6/uL (4.70-6.10); RED CELL DISTRIBUTION WIDTH 13.6 % (12.0-15.0); WHITE BLOOD COUNT 9.2 x10^3/uL (4.8-10.8)
[2020-10-03 12:17] LABS: INR 1.3 (0.8-1.2); PT - PROTHROMBIN TIME 14.4 secs (9.9-12.6)
--- NOTE | 2020-10-04 17:16 | Ultrasound Report ---
PROCEDURE: Abdominal Paracentesis INDICATIONS: ALCOHOLIC CIRRHOSIS TECHNIQUE: The indications, alternatives, benefits, risks, and complications of the procedure were explained to the patient. Written informed consent was obtained and placed in the chart. The abdomen and pelvis were examined sonographically, and an appropriate site was chosen for paracentesis. The skin was pre pared and draped in the usual sterile fashion, and 1% lidocaine was infiltrated from the skin down th rough the peritoneal surface. A 19-gauge catheter-covered needle was then introduced into the perito connor space, the catheter was advanced and the needle was withdrawn, and thereafter peritoneal fluid w as withdrawn. The catheter was then removed and a dressing was applied. The fluid was discarded if the clinician did not order diagnostic testing of the fluid. COMPARISON: None FINDINGS: Access site: Right lower quadrant Needle: One-Step centesis catheter with introducer needle. Fluid volume and description: 5.8 L clear Fluid sent for diagnostic testing: None Medications: 1% lidocaine for local anaesthesia. Complications: None. IMPRESSION: Successful ultrasound-guided paracentesis. Reviewed by: Candice Nieto MD on 10/04/2020 5:15 PM PDT Approved by: Candice Nieto MD on 10/04/2020 5:15 PM PDT Station ID: [id number]
== END 2020-10-03 12:49 | disposition home or self-care (01) ==
LOC: LAB 12:48
PROVIDERS: ATTEND Nurse Practitioner Family
DX: K70.31 Alcoholic cirrhosis of liver with ascites (principal)
CPT/HCPCS: 36415; 49083; 85025; 85610; 85730

== ENCOUNTER 2020-10-18 12:45 | Outpatient (CLI) | payer MEDICARE ==
[2020-10-18 13:08] LABS: BASOPHILS # (AUTO) 0.1 10^3/uL (0.0-0.1); BASOPHILS % (AUTO) 0.8 %; EOSINOPHILS # (AUTO) 0.1 10^3/uL (0.0-0.7); EOSINOPHILS % (AUTO) 1.2 %; HCT - HEMATOCRIT 30.7 % (42.0-52.0); LYMPHOCYTES # (AUTO) 0.7 10^3/uL (1.5-3.5); LYMPHOCYTES % (AUTO) 8.6 %; MEAN CORPUSCULAR HGB CONC 32.6 g/dL (32.0-36.0); MONOCYTES # (AUTO) 0.6 10^3/uL (0.0-1.0); MONOCYTES % (AUTO) 7.4 %; NEUTROPHILS # (AUTO) 6.4 10^3/uL (1.5-6.6); NEUTROPHILS % (AUTO) 81.5 %; PLT - PLATELET COUNT 216 10^3/uL (130-450); RED BLOOD COUNT 3.23 10^6/uL (4.70-6.10); RED CELL DISTRIBUTION WIDTH 13.4 % (12.0-15.0); WHITE BLOOD COUNT 7.8 x10^3/uL (4.8-10.8)
[2020-10-18 13:13] LABS: INR 1.3 (0.8-1.2); PT - PROTHROMBIN TIME 14.2 secs (9.9-12.6)
[2020-10-18 13:21] LABS: PARTIAL THROMBOPLASTIN TIME 30.3 secs (24.9-33.3)
--- NOTE | 2020-10-19 09:39 | Ultrasound Report ---
PROCEDURE: Abdominal Paracentesis INDICATIONS: ALCOHOLIC CIRRHOSIS TECHNIQUE: The indications, alternatives, benefits, risks, and complications of the procedure were explained to the patient. Written informed consent was obtained and placed in the chart. The abdomen and pelvis were examined sonographically, and an appropriate site was chosen for paracentesis. The skin was pre pared and draped in the usual sterile fashion, and 1% lidocaine was infiltrated from the skin down th rough the peritoneal surface. A 19-gauge catheter-covered needle was then introduced into the perito connor space, the catheter was advanced and the needle was withdrawn, and thereafter peritoneal fluid w as withdrawn. The catheter was then removed and a dressing was applied. The fluid was discarded if the clinician did not order diagnostic testing of the fluid. COMPARISON: 10/03/2020 FINDINGS: Access site: Right lower quadrant Needle: One-Step centesis catheter with introducer needle. Fluid volume and description: 5.8 L of clear, straw-colored ascites Fluid sent for diagnostic testing: None. Medications: 1% lidocaine for local anaesthesia. Complications: None. IMPRESSION: Successful ultrasound-guided therapeutic paracentesis. Reviewed by: Mario Hernandez MD on 10/19/2020 9:38 AM PDT Approved by: Mario Hernandez MD on 10/19/2020 9:38 AM PDT Station ID: [id number]
== END 2020-10-18 12:46 | disposition home or self-care (01) ==
LOC: LAB 12:45 → DI 12:46
PROVIDERS: ATTEND Nurse Practitioner Family
DX: K70.31 Alcoholic cirrhosis of liver with ascites (principal)
CPT/HCPCS: 36415; 49083; 85025; 85610; 85730

== ENCOUNTER 2020-11-22 07:25 | Outpatient (CLI) | payer MEDICARE ==
[2020-11-22 07:42] LABS: BASOPHILS # (AUTO) 0.1 10^3/uL (0.0-0.1); BASOPHILS % (AUTO) 0.6 %; EOSINOPHILS # (AUTO) 0.2 10^3/uL (0.0-0.7); EOSINOPHILS % (AUTO) 1.4 %; HCT - HEMATOCRIT 33.8 % (42.0-52.0); HGB - HEMOGLOBIN 10.8 g/dL (14.0-18.0); LYMPHOCYTES # (AUTO) 0.9 10^3/uL (1.5-3.5); LYMPHOCYTES % (AUTO) 8.4 %; MEAN CORPUSCULAR HEMOGLOBIN 30.6 pg (27.0-31.0); MEAN CORPUSCULAR VOLUME 95.8 fL (80.0-94.0); MEAN PLATELET VOLUME 8.4 fL (7.4-11.4); MONOCYTES # (AUTO) 0.6 10^3/uL (0.0-1.0); MONOCYTES % (AUTO) 5.8 %; NEUTROPHILS % (AUTO) 83.2 %; PLT - PLATELET COUNT 267 10^3/uL (130-450); RED BLOOD COUNT 3.53 10^6/uL (4.70-6.10); RED CELL DISTRIBUTION WIDTH 13.5 % (12.0-15.0); WHITE BLOOD COUNT 10.8 x10^3/uL (4.8-10.8)
[2020-11-22 08:06] LABS: INR 1.2 (0.8-1.2); PT - PROTHROMBIN TIME 13.4 secs (9.9-12.6)
--- NOTE | 2020-11-22 14:52 | Ultrasound Report ---
PROCEDURE: Abdominal Paracentesis INDICATIONS: ALCOHOLIC CIRRHOSIS TECHNIQUE: The indications, alternatives, benefits, risks, and complications of the procedure were explained to the patient. Written informed consent was obtained and placed in the chart. The abdomen and pelvis were examined sonographically, and an appropriate site was chosen for paracentesis. The skin was pre pared and draped in the usual sterile fashion, and 1% lidocaine was infiltrated from the skin down th rough the peritoneal surface. A 19-gauge catheter-covered needle was then introduced into the perito connor space, the catheter was advanced and the needle was withdrawn, and thereafter peritoneal fluid w as withdrawn. The catheter was then removed and a dressing was applied. The fluid was discarded if the clinician did not order diagnostic testing of the fluid. COMPARISON: Multiple prior abdominal paracentesis procedures. FINDINGS: Access site: Right anterolateral lower abdominal body wall. Needle: One-Step centesis catheter with introducer needle. Fluid volume and description: 5.8 L, clear. Fluid sent for diagnostic testing: Not requested Medications: 1% lidocaine for local anaesthesia. Complications: None. IMPRESSION: 5.8 L of clear fluid- Successful ultrasound-guided paracentesis. Reviewed by: Benjamin Vallejo MD on 11/22/2020 2:51 PM PDT Approved by: Benjamin Vallejo MD on 11/22/2020 2:51 PM PDT Station ID: [id number]
== END 2020-11-22 07:26 | disposition home or self-care (01) ==
LOC: DI 07:25
PROVIDERS: ATTEND Nurse Practitioner Family
DX: K70.31 Alcoholic cirrhosis of liver with ascites (principal)
CPT/HCPCS: 36415; 49083; 85025; 85610

== ENCOUNTER 2021-01-04 06:27 | Day surgery (SDC) | payer MEDICARE ==
[~2021-01-04 06:27] MED LIST changes: +CYCLOPENTOLATE 1% OPHTH DROPS 2 ML ONE; +PHENYLEPHRINE 2.5% OPHTH 2 ML DROPS ONE
[2021-01-04] MEDS ORDERED: LACTATED RINGERS 1,000 ML IV ONE ×2 (06:30→08:20)
[2021-01-04] MEDS ORDERED: EPINEPHrine 1 MG/ML AMP ONE (06:51)
[2021-01-04] MEDS ORDERED: TRIAMCIN/MOXIFLOX OPHTHALMIC 0.6 ML VIAL IO ONE ×2 (06:51→07:19)
[2021-01-04] MEDS ORDERED: BRIMONIDINE 0.2% OPHTH DROPS 5 ML ONE (06:51)
[2021-01-04] MEDS ORDERED: VANCOMYCIN OPHTHALMI 8MG/0.8ML 8 MG/0.8 ML SYRINGE IO ONE ×2 (06:52→07:20)
[2021-01-04] MEDS ORDERED: TIMOLOL 0.5% OPHTH DROPS ONE (06:52)
--- NOTE | 2021-01-04 06:57 | ANESTHESIA ---
Pre-Anesthesia VS, & Labs - Diagnosis left eye cataract - Procedure Left eye CATIOL Vital Signs: Temp Pulse Resp BP Pulse Ox 36.1 C L 76 16 114/66 100 01/04/21 06:37 01/04/21 06:37 01/04/21 06:37 01/04/21 06:37 01/04/21 06:37 Height: 5 ft 4 in Weight (kg): 72 kg Body Mass Index: 27.2 BMI Classification: Overweight - NPO >8 hours - Lab Results Lab results reviewed: Yes Home Medications and Allergies Albuterol Sulfate [Proventil Hfa] 1 puffs PO DAILY 06/14/15 Aspirin [Denise Chewable] 81 mg PO DAILY 06/14/15 Budesonide/Formoterol Fumarate [Symbicort 160-4.5 Mcg Inhaler] 1 puffs PO BID 06/14/15 Cholecalciferol (Vitamin D3) [Vitamin D] 5,000 unit PO DAILY 06/14/15 Cyclobenzaprine [Flexeril] 1 tab PO BID 06/14/15 Losartan Potassium 1 tab PO DAILY 06/14/15 Metoprolol Tartrate [Lopressor] 150 mg PO BID 06/14/15 Tiotropium Sandoval [Spiriva] 1 puffs PO DAILY 06/14/15 oxyCODONE [Roxicodone] 5 mg PO DAILY 06/14/15 amLODIPine [Norvasc] 10 mg PO DAILY 02/22/16 Furosemide [Lasix] 40 mg PO DAILY 09/06/20 Metformin HCl [Fortamet] 1,000 mg PO BID 09/06/20 Omeprazole 40 mg PO DAILY 09/06/20 Tiotropium Sandoval [Spiriva] 2 puffs PO DAILY 09/06/20 Allergies/Adverse Reactions: Allergies Allergy/AdvReac Type Severity Reaction Status Date / Time hydrochlorothiazide Allergy Severe Emesis Verified 09/06/20 13:25 acetaminophen [From Vicodin] Allergy Intermediate Itching Verified 09/06/20 13:25 hydrocodone bitartrate * Allergy Intermediate Itching Verified 09/06/20 13:25 [From Vicodin] BLAS Inhibitors Allergy Unknown Verified 09/06/20 13:25 codeine AdvReac Respiratory Verified 09/06/20 13:25 Anes History & Medical History - Anesthetic History Anesthesia Complications: reports: No previous complications Family history of Anesthesia Complications: Denies Family history of Malignant Hyperthermia: Denies - Medical History Cardiovascular: reports: Hypertension, Peripheral Vascular Disease Pulmonary: reports: COPD Gastrointestinal: reports: Pancreatitis, Other Urinary: reports: None Neuro: reports: None Musculoskeletal: reports: Osteoarthritis, Chronic back pain Endocrine/Autoimmune: reports: Other Blood Disorders: reports: None Skin: reports: None Smoking Status: Current every day smoker (1.5 packs per day x 50 years) - Surgical History General: reports: Colonoscopy Eyes Ears Nose Throat (EENT): reports: Cataracts, Tonsil/Adenoidectomy Exam General: Alert, Oriented x3, Cooperative, No acute distress Dental: WNL Mouth Openin Fingerbreadth Neck Mobility: Normal Mallampati classification: II Respiratory: Lungs clear, Normal breath sounds, No respiratory distress, No accessory muscle use Cardiovascular: Regular rate, Normal S1, Normal S2, No murmurs Plan Anesthesia Type: MAC Consent for Procedure(s) Verified and Reviewed: Yes Code Status: Attempt Resuscitation ASA classification: 2-Mild systemic disease Is this case an emergency?: No
[2021-01-04] MEDS ORDERED: SODIUM CHLORIDE 0.9% 10 ML VIAL IVP ONE (07:05)
[2021-01-04] MEDS ORDERED: MIDAZOLAM 2 MG/2 ML VIAL ONE (07:07)
[2021-01-04] MEDS ORDERED: BRIMONIDINE 0.2% OPHTH DROPS 5 ML OPTH ONE (07:18)
[2021-01-04] MEDS ORDERED: CHONDR SULF/HYALURONATE SYRINGE IO ONE (07:18)
[2021-01-04] MEDS ORDERED: EPINEPHrine 1 MG/ML AMP IR ONE (07:18)
[2021-01-04] MEDS ORDERED: TIMOLOL 0.5% OPHTH DROPS OPTH ONE (07:19)
[2021-01-04] MEDS ORDERED: BSS/LIDOCAINE/EPINEPHRINE 1 ML SYRINGE IO ONE (07:19)
[2021-01-04] MEDS ORDERED: PROPARACAINE 0.5% OPHTH DROPS 15 ML EACHEYE ONE (07:20)
[2021-01-04] MEDS ORDERED: LIDOCAINE-MPF 2% 5 ML VIAL ONE (07:30)
[2021-01-04] MEDS ORDERED: fentaNYL 100 MCG/2 ML VIAL ONE (07:32)
[2021-01-04] MEDS ORDERED: PROPOFOL 200 MG/20 ML VIAL IVP ONE (07:32)
[2021-01-04] MEDS ORDERED: PHENYLEPHRINE 10 MG/ML VIAL ONE (07:41)
--- NOTE | 2021-01-04 08:03 | OPERATIVE REPORT ---
Operative Report - Other Other Information/Narrative: Date of Surgery: 01/04/21 Preop Dx: Visually significant cataract left eye. Cataract surgery was performed in the right eye on [id number]. Postop Dx: Same Procedure: Phacoemulsification with posterior chamber toric intraocular lens implant left eye Surgeon: Dr. Jose Luis Ferreira Anesthesia: Monitored anesthesia care Complications: None Operative Indications: This is a 65-year-old M with progressive vision loss in the left eye due to 2+ nuclear sclerotic cataract. Best corrected visual acuity was 20/20 with glare to 20/60 vision in the left eye. Indications for surgery were: - Difficulty seeing words on a computer screen - Difficulty reading - Difficulty driving in low light or at night - Difficulty with glare or bright lights in any situation The patient was consented at length concerning the risks and benefits of cataract surgery after which the patient expressed a desire to proceed with surgery. Operative Procedure: The patients cornea was marked in the pre-surgical area to indicate the axis for the toric intraocular lens. The patient was taken into OR#3 and placed under monitored anesthesia care. A surgical time-out was conducted confirming correct patient, correct procedure, and correct surgical site. The patient was given topical anesthesia and then prepped and draped in the usual sterile fashion. The eye was entered at the 6 and 3 oclock positions. Intracameral Shugarcaine was injected into the anterior chamber followed by a dispersive viscoelastic. A continuous-tear curvilinear capsulorhexis was performed. The nucleus was hydrodissected and phacoemulsified. The cortex was evacuated using automated infusion and aspiration. A cohesive viscoelastic was injected into the capsular bag and a 19.5 diopter toric intraocular lens was inserted into the bag and rotated to axis 003. Infusion and aspiration were used to evacuate the viscoelastic materials from the eye and the IOL was verified to remain on axis. The wounds were hydrated and the eye inflated to physiologic pressure using balanced salt solution. Approximately 0.25ml of a mixture of triamcinolone and moxifloxacin was injected trans-scleral ly into the vitreous in the inferotemporal quadrant using a 30 gauge cannula. An additional 0.55ml of a mixture of triamcinolone, moxifloxacin, and vancomycin was injected subconjunctivally in the superior quadrant for infection and inflammation prophylaxis. Wound integrity was checked with Weck-Janina sponges and the IOL axis was once again verified to be on the correct axis. The patient was taken from the operating room in good condition and given post-op instructions.
[2021-01-04 08:46] VITALS: BP 112/67
--- NOTE | 2021-01-04 09:07 | ANESTHESIA POST OP EVALUATION ---
Anesthesia Post Eval - Post Anesthesia Eval Vitals: Last Vital Signs Temp 36.8 C 01/04/21 08:35 Pulse 70 01/04/21 08:35 Resp 16 01/04/21 08:35 BP 112/67 01/04/21 08:35 Pulse Ox 98 01/04/21 08:35 CV Function Including HR & BP: Stable Pain Control: Satisfactory Nausea & Vomiting: Negative Mental Status: Baseline Respiratory Status: Airway Patent Hydration Status: Satisfactory Anesthesia Complications: None
== END 2021-01-04 06:28 | disposition home or self-care (01) ==
LOC: SDS 06:27
PROVIDERS: ATTEND Ophthalmology
DX: E11.36 Type 2 diabetes mellitus with diabetic cataract (principal); H25.812 Combined forms of age-related cataract, left eye; J44.9 Chronic obstructive pulmonary disease, unspecified; G47.33 Obstructive sleep apnea (adult) (pediatric); F17.210 Nicotine dependence, cigarettes, uncomplicated; Z79.84 Long term (current) use of oral hypoglycemic drugs; Z98.41 Cataract extraction status, right eye
CPT/HCPCS: 66984; A9270; J3490; J7120; V2632; V2787

== ENCOUNTER 2021-01-10 12:55 | Outpatient (CLI) | payer MEDICARE ==
[2021-01-10 12:58] LABS: BASOPHILS # (AUTO) 0.1 10^3/uL (0.0-0.1); EOSINOPHILS # (AUTO) 0.2 10^3/uL (0.0-0.7); EOSINOPHILS % (AUTO) 1.8 %; HCT - HEMATOCRIT 31.4 % (42.0-52.0); HGB - HEMOGLOBIN 9.9 g/dL (14.0-18.0); LYMPHOCYTES # (AUTO) 0.5 10^3/uL (1.5-3.5); LYMPHOCYTES % (AUTO) 5.6 %; MEAN CORPUSCULAR HGB CONC 31.5 g/dL (32.0-36.0); MEAN CORPUSCULAR VOLUME 98.4 fL (80.0-94.0); MEAN PLATELET VOLUME 8.3 fL (7.4-11.4); MONOCYTES # (AUTO) 0.6 10^3/uL (0.0-1.0); MONOCYTES % (AUTO) 6.8 %; NEUTROPHILS % (AUTO) 84.4 %; PLT - PLATELET COUNT 273 10^3/uL (130-450); RED BLOOD COUNT 3.19 10^6/uL (4.70-6.10); RED CELL DISTRIBUTION WIDTH 14.1 % (12.0-15.0); WHITE BLOOD COUNT 8.3 x10^3/uL (4.8-10.8)
[2021-01-10 13:01] LABS: INR 1.1 (0.8-1.2); PT - PROTHROMBIN TIME 12.8 secs (9.9-12.6)
[2021-01-10 13:08] LABS: PARTIAL THROMBOPLASTIN TIME 33.1 secs (24.9-33.3)
--- NOTE | 2021-01-10 16:16 | Ultrasound Report ---
PROCEDURE: Abdominal Paracentesis INDICATIONS: ALCOHOLIC CIRRHOSIS TECHNIQUE: The indications, alternatives, benefits, risks, and complications of the procedure were explained to the patient. Written informed consent was obtained and placed in the chart. The abdomen and pelvis were examined sonographically, and an appropriate site was chosen for paracentesis. The skin was pre pared and draped in the usual sterile fashion, and 1% lidocaine was infiltrated from the skin down th rough the peritoneal surface. A 19-gauge catheter-covered needle was then introduced into the perito connor space, the catheter was advanced and the needle was withdrawn, and thereafter peritoneal fluid w as withdrawn. The catheter was then removed and a dressing was applied. The fluid was discarded if the clinician did not order diagnostic testing of the fluid. COMPARISON: Paracentesis 11/22/2020 FINDINGS: Access site: Right lower quadrant Needle: One-Step centesis catheter with introducer needle. Fluid volume and description: 5.8 L clear straw-colored fluid Fluid sent for diagnostic testing: Not requested. Medications: 1% lidocaine for local anaesthesia. Complications: None. IMPRESSION: Successful ultrasound-guided paracentesis. Reviewed by: Allan Gonzalez MD on 01/10/2021 4:15 PM PDT Approved by: Allan Gonzalez MD on 01/10/2021 4:15 PM PDT Station ID: [id number]
== END 2021-01-10 12:56 | disposition home or self-care (01) ==
LOC: LAB 12:55
PROVIDERS: ATTEND Nurse Practitioner Family
DX: K70.31 Alcoholic cirrhosis of liver with ascites (principal)
CPT/HCPCS: 36415; 49083; 85025; 85610; 85730

== ENCOUNTER 2021-01-19 14:43 | Outpatient (CLI) | payer MEDICARE ==
[2021-01-19 15:02] LABS: BASOPHILS # (AUTO) 0.1 10^3/uL (0.0-0.1); BASOPHILS % (AUTO) 0.7 %; EOSINOPHILS # (AUTO) 0.2 10^3/uL (0.0-0.7); EOSINOPHILS % (AUTO) 2.1 %; HCT - HEMATOCRIT 34.2 % (42.0-52.0); HGB - HEMOGLOBIN 10.8 g/dL (14.0-18.0); LYMPHOCYTES # (AUTO) 0.5 10^3/uL (1.5-3.5); LYMPHOCYTES % (AUTO) 5.1 %; MEAN CORPUSCULAR HGB CONC 31.6 g/dL (32.0-36.0); MEAN CORPUSCULAR VOLUME 98.3 fL (80.0-94.0); MEAN PLATELET VOLUME 8.8 fL (7.4-11.4); MONOCYTES # (AUTO) 0.5 10^3/uL (0.0-1.0); MONOCYTES % (AUTO) 5.1 %; NEUTROPHILS # (AUTO) 8.1 10^3/uL (1.5-6.6); NEUTROPHILS % (AUTO) 86.4 %; PLT - PLATELET COUNT 309 10^3/uL (130-450); RED BLOOD COUNT 3.48 10^6/uL (4.70-6.10); RED CELL DISTRIBUTION WIDTH 13.4 % (12.0-15.0); WHITE BLOOD COUNT 9.4 x10^3/uL (4.8-10.8)
[2021-01-19 16:04] LABS: INR 1.1 (0.8-1.2); PT - PROTHROMBIN TIME 12.5 secs (9.9-12.6)
[2021-01-19 16:12] LABS: PARTIAL THROMBOPLASTIN TIME 31.3 secs (24.9-33.3)
== END 2021-01-19 14:44 | disposition home or self-care (01) ==
LOC: LAB 14:43
PROVIDERS: ATTEND Surgery
DX: Z01.812 Encounter for preprocedural laboratory examination (principal); K70.31 Alcoholic cirrhosis of liver with ascites
CPT/HCPCS: 36415; 85025; 85610; 85730

== ENCOUNTER 2021-01-22 08:08 | Day surgery (SDC) | payer MEDICARE ==
[~2021-01-22 08:08] MED LIST changes: +CEFAZOLIN SODIUM IN 0.9 % NACL 2 GM/100 ML BAG IV ONE; -CYCLOPENTOLATE 1% OPHTH DROPS 2 ML ONE; -KETOROLAC 0.45% OPHTH DROPS ONE; -PHENYLEPHRINE 2.5% OPHTH 2 ML DROPS ONE; -PROPARACAINE 0.5% OPHTH DROPS 15 ML ONE
--- NOTE | 2021-01-22 08:33 | ANESTHESIA ---
Pre-Anesthesia VS, & Labs - Diagnosis alcoholic cirrhosis, ascites - Procedure Pleurex catheter placement Height: 5 ft 4 in Weight (kg): 68 kg Body Mass Index: 25.7 BMI Classification: Overweight - NPO >8 hours - Lab Results Lab results reviewed: Yes Home Medications and Allergies Home Medications: Ambulatory Orders Ascorbic Acid [Vitamin C] 500 mg PO DAILY 01/19/21 Ferrous Fumarate/Ascorbic Acid [Samantha-Sequels 65-25 mg Caplet] 65 mg PO DAILY 01/19/21 Melatonin/Pyridoxine [Melatonin 5 mg Tablet] 1 tab PO HS 01/19/21 Multivitamin 1 tab PO DAILY 01/19/21 [place]-3/Dha/Epa/Fish Oil [Fish Oil 1,000 mg Softgel] 1 cap PO DAILY 01/19/21 Albuterol Sulfate [Proventil Hfa] 1 puffs PO DAILY PRN 06/14/15 Aspirin [Denise Chewable] 81 mg PO DAILY 06/14/15 Budesonide/Formoterol Fumarate [Symbicort 160-4.5 Mcg Inhaler] 1 puffs PO BID 06/14/15 Cholecalciferol (Vitamin D3) [Vitamin D] 5,000 unit PO DAILY 06/14/15 Cyclobenzaprine [Flexeril] 1 tab PO DAILY 06/14/15 Losartan Potassium 1 tab PO DAILY 06/14/15 Metoprolol Tartrate [Lopressor] 150 mg PO BID 06/14/15 oxyCODONE [Roxicodone] 5 mg PO DAILY PRN 06/14/15 amLODIPine [Norvasc] 10 mg PO DAILY 02/22/16 Furosemide [Lasix] 40 mg PO DAILY 09/06/20 Metformin HCl [Fortamet] 1,000 mg PO BID 09/06/20 Omeprazole 20 mg PO DAILY 09/06/20 Tiotropium [place] [Spiriva] 2 puffs PO DAILY 09/06/20 Ascorbic Acid [Vitamin C] 500 mg PO DAILY 01/19/21 Ferrous Fumarate/Ascorbic Acid [Samantha-Sequels 65-25 mg Caplet] 65 mg PO DAILY 01/19/21 Melatonin/Pyridoxine [Melatonin 5 mg Tablet] 1 tab PO HS 01/19/21 Multivitamin 1 tab PO DAILY 01/19/21 [place]-3/Dha/Epa/Fish Oil [Fish Oil 1,000 mg Softgel] 1 cap PO DAILY 01/19/21 Allergies/Adverse Reactions: Allergies Allergy/AdvReac Type Severity Reaction Status Date / Time hydrochlorothiazide Allergy Severe Emesis Verified 01/19/21 12:33 hydrocodone bitartrate * Allergy Intermediate Itching Verified 01/19/21 12:33 [From Vicodin] BLAS Inhibitors Allergy Unknown Verified 01/19/21 12:33 codeine AdvReac Respiratory Verified 01/19/21 12:33 Anes History & Medical History - Anesthetic History Anesthesia Complications: reports: No previous complications Family history of Anesthesia Complications: Denies Family history of Malignant Hyperthermia: Denies - Medical History Cardiovascular: reports: Hypertension Pulmonary: reports: COPD Gastrointestinal: reports: GERD, Cirrhosis Urinary: reports: None Neuro: reports: None Musculoskeletal: reports: Chronic back pain Endocrine/Autoimmune: reports: Type 2 diabetes Blood Disorders: reports: None Skin: reports: Other Smoking Status: Current every day smoker (1.5 packs per day x 50 years) - Surgical History General: reports: Colonoscopy Eyes Ears Nose Throat (EENT): reports: Cataracts, Tonsil/Adenoidectomy Orthopedic: reports: Hip replacement Exam General: Alert, Oriented x3, Cooperative Dental: WNL Respiratory: Lungs clear Cardiovascular: Regular rate Mental/Cognitive Status: Alert/Oriented X3, Normal for patient Cognitive Status: Within normal limits Plan Anesthesia Type: MAC Consent for Procedure(s) Verified and Reviewed: Yes Code Status: Attempt Resuscitation ASA classification: 3-Severe systemic disease Is this case an emergency?: No
[2021-01-22] MEDS ORDERED: LACTATED RINGERS 1,000 ML IV ONE ×3 (08:41→10:31)
[2021-01-22] MEDS ORDERED: ONDANSETRON 4 MG/2 ML VIAL IVP PRN ×2 (09:16→10:59)
[2021-01-22] MEDS ORDERED: MORPHINE 2 MG/ML CARPUJECT IVP PRN (09:16)
[2021-01-22] MEDS ORDERED: ATROPINE ABBOJECT 1 MG/10 ML SYRINGE IVP PRN (09:16)
[2021-01-22] MEDS ORDERED: METOCLOPRAMIDE 10 MG/2 ML VIAL IVP PRN (09:16)
[2021-01-22] MEDS ORDERED: fentaNYL 100 MCG/2 ML VIAL IVP PRN (09:16)
[2021-01-22] MEDS ORDERED: HYDROmorphone 0.5 MG/0.5 ML SYRINGE IVP PRN ×2 (09:16→10:59)
[2021-01-22] MEDS ORDERED: NALOXONE 0.4 MG/ML VIAL IVP PRN (09:16)
[2021-01-22] MEDS ORDERED: ePHEDrine 50 MG/ML VIAL IVP PRN (09:16)
[2021-01-22] MEDS ORDERED: MIDAZOLAM 2 MG/2 ML VIAL ONE (09:27)
[2021-01-22] MEDS ORDERED: PROPOFOL 200 MG/20 ML VIAL IVP ONE (09:28)
[2021-01-22] MEDS ORDERED: BUPIVACAINE 0.5% PF 10 ML VIAL ONE ×2 (09:28→09:29)
[2021-01-22] MEDS ORDERED: KETAMINE 500 MG/10 ML VIAL ONE (09:28)
[2021-01-22] MEDS ORDERED: SODIUM CHLORIDE 0.9% 10 ML VIAL IVP ONE (09:35)
[2021-01-22] MEDS ORDERED: ePHEDrine 50 MG/ML VIAL IVP ONE ×2 (09:59→10:04)
[2021-01-22] MEDS ORDERED: LACTATED RINGERS 1,000 ML IV SCH (10:00)
[2021-01-22] MEDS ORDERED: BUPIVACAINE 0.5% PF 30 ML VIAL SUBQ ONE ×2 (10:05→10:24)
--- NOTE | 2021-01-22 10:40 | OPERATIVE REPORT ---
Operative Report - General Procedure Date: 01/22/21 Planned Procedure: Placement of abdominal Pleurx catheter for palliative drainage of ascites Pre-Op Diagnosis: Refractory alcoholic ascites Procedure Performed: Placement of abdominal Pleurx catheter and paracentesis of 3060 mL ascitic fluid Post Op Diagnosis: Same - Procedure Note Primary Surgeon: Thierry Graham MD Anesthesia Provider: Earline Coppola CRNA Anesthesia Technique: Local (14 mL of half percent Marcaine), MAC IV Fluids (mL): 250 Estimated Blood Loss (mL): 1 Drain/Tube Type: Other (Pleurx catheter mentioned above) Indications: Refractory alcoholic ascites Complications: None - Other Other Information/Narrative: After verbal and written informed consent was obtained detailing the operation, the alternatives the operation including no operation, risks of infection, bleeding requiring transfusion with its risks, nerve injury, and and after I met with the patient confirming the surgery and the site of surgery, the patient was brought to the operative suite and placed supine on the operating table. Great care was taken to avoid pressure points to prevent pressure necrosis or nerve injury. Monitoring devices were applied along with TEDs and pneumatic compression stockings (to prevent DVT). The patient received preoperative antibiotics for surgical prophylaxis. Earline Coppola sedated and anesthetized the patient for the entire procedure. The patient was prepped and draped in the usual sterile manner. A "time in" then confirmed that the patient was identified with 3 identifiers (name, birthdate, and medical record number), the history and physical was updated and in the chart, the signed consent confirming the procedure was in the chart, the patient was in the correct position, the aforementioned prophylactic measures were in place or given, we had the correct personnel and equipment to complete the procedure and that anesthesia and the surgical team were given an opportunity to express any concerns. With the agreement of everyone in the room we proceeded with the operation. After I marked the skin taking care to allow for the least 8 cm of distance between the 2 incisions, the skin and subcutaneous tissues was anesthetized using half percent Marcaine. The proposed tunneled tract was also anesthetized using half percent Marcaine. 2 incisions were made one inferiorly and a bit more medially towards the umbilicus the other one will bit more superior and lateral and blunt dissection was used to develop a tunnel tract between these 2. The catheter was obtained and the tunneler bit was used to pass the catheter between the superiormost incision and the inferior most incision taking care to ensure there was a least a centimeter and a half of distance between the upper incision and the cuff. With the catheter past, a needle was inserted into the patient's abdomen with return of light yellow ascitic fluid. A wire was then placed into the needle and the needle removed leaving the wire in place in the patient's abdomen. The tract was then sequentially dilated using larger dilators and finally a dilator and sheath. The dilator and the wire were removed and the catheter was placed into the sheath. The sheath was then torn away leaving the catheter in place. After installing the Luer-Verena adapter I then drained 3060 mL of ascites. Over 5 L of fluid had been previously removed but I did not want to the patient to become hypotensive especially considering the fact that he had received anesthesia. It was the patient's and is the patient's desire to go home. After draining the aforementioned fluid his abdomen was significantly softer and not tense. The skin at the inferior incision was approximated using the included dissolving stitch and the uppermost incision was approximated with a 3-0 silk which was then Robert sandaled about the drain. The skin was cleaned of its prep and Dermabond was applied at the inferior incision. The catheter was capped and a dressing was applied. At this point a timeout was performed that confirmed that all counts were correct x2, the procedure that was performed, the blood loss, the IV fluids administered, the patient's condition, and any concerns of the operating team had. Having tolerated the procedure well, the patient was taken recovery room in good and stable condition. The plan is for outpatient discharge when the patient is adequately recovered. This document was created in part using voice recognition technology. Because of the inherent limitations of the system, occasional same sounding word substitutions and grammatical errors do occur and persist despite proofreading. Please read this document for content.
--- NOTE | 2021-01-22 10:54 | ANESTHESIA POST OP EVALUATION ---
Anesthesia Post Eval - Post Anesthesia Eval Vitals: Last Vital Signs Temp 36.9 C 01/22/21 10:37 Pulse 77 01/22/21 10:46 Resp 13 01/22/21 10:46 BP 103/64 01/22/21 10:46 Pulse Ox 98 01/22/21 10:46 CV Function Including HR & BP: Stable Pain Control: Satisfactory Nausea & Vomiting: Negative Mental Status: Baseline Respiratory Status: Airway Patent Hydration Status: Satisfactory Anesthesia Complications: None
[2021-01-22] MEDS ORDERED: HYDROcod/ACETAM 5/325 MG TABLET PO PRN (10:59)
[2021-01-22 12:25] VITALS: BP 106/64
== END 2021-01-22 08:09 | disposition home or self-care (01) ==
LOC: SDS 08:08
PROVIDERS: ATTEND Surgery
PROC: 0W9G30Z Drainage of Peritoneal Cavity with Drainage Device, Percutaneous Approach (ICD-10-PCS; principal; 2021-01-22 09:15)
DX: K70.31 Alcoholic cirrhosis of liver with ascites (principal); F17.210 Nicotine dependence, cigarettes, uncomplicated; J44.9 Chronic obstructive pulmonary disease, unspecified; I10 Essential (primary) hypertension; E11.9 Type 2 diabetes mellitus without complications; F10.20 Alcohol dependence, uncomplicated
CPT/HCPCS: 49999; J0690; J7120; 85025; 85610; 85730

== ENCOUNTER 2021-02-22 15:04 | Emergency (ER) | payer MEDICARE ==
[2021-02-22] MEDS ORDERED: MUPIROCIN 2% OINT 1 GM TOP STA (15:45)
--- NOTE | 2021-02-22 15:46 | ED Physician Documentation ---
History of Present Illness - Stated complaint Stated Complaint: MALE - Chief complaint Chief Complaint: Abd Pain - History obtained from History obtained from: Patient - Additonal information Additional information: This is a very pleasant 65-year-old male with a past medical history of ascites and chronic liver disease who presented from clinic due to concerns for infection around an abd pleurx catheter site. The patient had a catheter placed in his right abdomen which he uses to self drain ascites for palliative paracentesis for refractory ascites. He drains 2-3L twice a week typically. T his was placed within the last month on 01/22. He noticed some localized redness around the catheter insertion site several days ago, as well as some crusty drainage. He has been washing with alcohol and applying triple antibiotic. He went to the clinic today for evaluation they sent him over to the ER due to concerns for possible infection. Denies any fever chills, no chest pain or dyspnea, no abdominal pain, no worsening ascites, no other GI or symptoms. He does have low blood pressure and states that he has been running low for the last few weeks. He is on a number of blood pressure medications including losartan 100 mg, Lasix, amlodipine 10 mg, metoprolol. During the visit today he was advised to cut down his losartan to 50 mg daily and he has temporarily stopped Lasix due to hypotension. He is asymptomatic, no dizziness or weakness and again denies fever or abdominal pain. Review of Systems Ten Systems: 10 systems reviewed and negative GI: reports: Reviewed and negative Skin: reports: Other (redness around abdominal catheter site.) PD PAST MEDICAL HISTORY - Past Medical History Cardiovascular: Hypertension Respiratory: COPD Neuro: None Endocrine/Autoimmune: Type 2 diabetes GI: GERD, Cirrhosis : None HEENT: Chronic vision loss Psych: None Musculoskeletal: Chronic back pain Derm: Other - Past Surgical History Past Surgical History: Yes General: Colonoscopy Ortho: Hip replacement HEENT: Cataracts, Tonsil/Adenoidectomy - Present Medications Home Medications: Ambulatory Orders Medication Instructions Recorded Confirmed Albuterol Sulfate [Proventil Hfa] 1 puffs PO DAILY PRN 06/14/15 01/22/21 Aspirin [Denise Chewable] 81 mg PO DAILY 06/14/15 01/22/21 Budesonide/Formoterol Fumarate 1 puffs PO BID 06/14/15 01/19/21 [Symbicort 160-4.5 Mcg Inhaler] Cholecalciferol (Vitamin D3) 5,000 unit PO DAILY 06/14/15 01/19/21 [Vitamin D] Cyclobenzaprine [Flexeril] 1 tab PO DAILY 06/14/15 01/22/21 Losartan Potassium 1 tab PO DAILY 06/14/15 01/22/21 Metoprolol Tartrate [Lopressor] 150 mg PO BID 06/14/15 01/22/21 oxyCODONE [Roxicodone] 5 mg PO DAILY PRN 06/14/15 01/22/21 amLODIPine [Norvasc] 10 mg PO DAILY 02/22/16 01/22/21 Furosemide [Lasix] 40 mg PO DAILY 09/06/20 01/22/21 Metformin HCl [Fortamet] 1,000 mg PO BID 09/06/20 01/22/21 Omeprazole 20 mg PO DAILY 09/06/20 01/19/21 Tiotropium [place] [Spiriva] 2 puffs PO DAILY 09/06/20 01/22/21 Ascorbic Acid [Vitamin C] 500 mg PO DAILY 01/19/21 01/19/21 Ferrous Fumarate/Ascorbic Acid 65 mg PO DAILY 01/19/21 01/22/21 [Samantha-Sequels 65-25 mg Caplet] Melatonin/Pyridoxine [Melatonin 5 1 tab PO HS 01/19/21 01/19/21 mg Tablet] Multivitamin 1 tab PO DAILY 01/19/21 01/19/21 [place]-3/Dha/Epa/Fish Oil [Fish Oil 1 cap PO DAILY 01/19/21 01/19/21 1,000 mg Softgel] Mupirocin 2% Oint [Bactroban 2% 1 applic TOP BID #22 gm 02/22/21 Oint] cephALEXin [Keflex] 500 mg PO Q6H #28 02/22/21 - Allergies Allergies/Adverse Reactions: Allergies Allergy/AdvReac Type Severity Reaction Status Date / Time hydrochlorothiazide Allergy Severe Emesis Verified 01/19/21 12:33 hydrocodone bitartrate * Allergy Intermediate Itching Verified 01/19/21 12:33 [From Vicodin] BLAS Inhibitors Allergy Unknown Verified 01/19/21 12:33 codeine AdvReac Respiratory Verified 01/19/21 12:33 - Social History Does the pt smoke?: Yes Smoking Status: Current every day smoker Does the pt drink ETOH?: Yes Does the pt have substance abuse?: No - Immunizations Immunizations are current?: Yes - POLST Patient has POLST: No PD ED PE NORMAL - Vitals Vital signs reviewed: Yes - General General: Alert and oriented X 3, No acute distress, Well developed/nourished - HEENT HEENT: Atraumatic, Pharynx benign - Neck Neck: Supple, no meningeal sign, No JVD - Cardiac Cardiac: RRR, No murmur - Respiratory Respiratory: No respiratory distress, Clear bilaterally - Abdomen Abdomen: Normal bowel sounds, Other (mild distension, ascities present. abd is non tender and active) - Derm Derm: Normal color, Warm and dry, Other (localized erythema around catheter instertion site on abd, hoang crusted drainage. non tender, no induration or abscess. ) - Neuro Neuro: Alert and oriented X 3 Eye Opening: Spontaneous Motor: Obeys Commands Verbal: Confused GCS Score: 14 - Psych Psych: Normal mood, Normal affect Results - Vitals Vitals: Vital Signs - 24 hr 02/22/21 02/22/21 02/22/21 15:25 15:39 16:16 Temperature 36 C L 36.7 C Heart Rate 76 68 Respiratory 16 18 Rate Blood Pressure 86/55 L 87/58 L 74/52 L O2 Saturation 100 100 98 02/22/21 18:57 Temperature Heart Rate 68 Respiratory 16 Rate Blood Pressure 117/68 O2 Saturation 100 Oxygen O2 Source Room air - Labs Labs: Laboratory Tests 02/22/21 02/22/21 02/22/21 16:00 16:00 16:00 WBC 8.8 RBC 3.20 L Hgb 10.0 L Hct 31.4 L MCV 98.1 H MCH 31.3 H MCHC 31.8 L RDW 13.6 Plt Count 331 MPV 9.0 Neut # (Auto) 7.1 H Lymph # (Auto) 0.8 L [place] # (Auto) 0.6 Eos # (Auto) 0.2 Baso # (Auto) 0.1 Absolute Nucleated RBC 0.00 Nucleated RBC % 0.0 Sodium 133 L Potassium 5.8 H Chloride 102 Carbon Dioxide 21 Anion Gap 10.0 BUN 46 H Creatinine 1.6 H Estimated GFR (MDRD) 43 L Glucose 96 Lactic Acid 1.8 Calcium 8.3 L Total Bilirubin 0.5 AST 69 H ALT 38 Alkaline Phosphatase 312 H Total Protein 6.5 L Albumin 2.8 L Globulin 3.7 Albumin/Globulin Ratio 0.8 L Lipase 24 02/22/21 18:31 WBC RBC Hgb Hct MCV MCH MCHC RDW Plt Count MPV Neut # (Auto) Lymph # (Auto) [place] # (Auto) Eos # (Auto) Baso # (Auto) Absolute Nucleated RBC Nucleated RBC % Sodium 135 Potassium 4.9 Chloride 105 Carbon Dioxide 21 Anion Gap 9.0 BUN 46 H Creatinine 1.5 H Estimated GFR (MDRD) 47 L Glucose 63 L Lactic Acid Calcium 8.3 L Total Bilirubin AST ALT Alkaline Phosphatase Total Protein Albumin Globulin Albumin/Globulin Ratio Lipase PD MEDICAL DECISION MAKING - ED course Complexity details: reviewed results, re-evaluated patient, d/w patient ED course: This is a very pleasant 65 year old m w/ a history of Chronic liver disease and ascites with a new pleurx catheter for palliative paracentesis. On physical exam he has some mild erythema around the catheter site but no abdominal pain to suggest a spontaneous bacterial peritonitis. This is a localized infection and mupirocin should be sufficient but I have also put him on Keflex. We did obtain a work-up due to hypotension though the patient was asymptomatic and I had low suspicion for sepsis per clinical exam. He had noted he had been hypotensive for several weeks per his home BP checks, but he felt well. His lactate is normal, his white count is normal, his renal function is worse than prior but our last available labs here are 2015. Patient is on a number of antihypertensives including losartan 100 mg, amlodipine 10 mg, Lasix, metoprolol. I suspect that he is somewhat over diuresed, he is dry appearing on physical exam and per labs and he states he doesn't drink much of anything throughout the day. We gave him a 500 mL bolus with resolution of his hypotension. His potassium was somewhat elevated at 5.8 and he received a gram of calcium gluconate and dextrose and insulin with repeat potassium of 4.9. The patient was advised to continue to monitor his blood pressure at home, a advised him to hold his BP medication tonight if and not resume unless systolic blood pressures greater than 140 at which time he will resume losartan at 50 mg daily. He checks his BP regularly at home. I recommended that he see his primary care provider early next week for repeat renal function panel and blood pressure check as his blood pressure medication may need to be further adjusted. Reviewed return precautions including fever, chills, abdominal pain, nausea vomiting or otherwise new concerns. Departure - Departure Disposition: 01 Home, Self Care Clinical Impression: Hypotension Qualifiers: Hypotension type: hypotension due to hypovolemia Qualified Code(s): I95.89 - Other hypotension Condition: Good Instructions: Hypotension Dc Prescriptions: Mupirocin 2% Oint [Bactroban 2% Oint] 1 applic TOP BID #22 gm cephALEXin [Keflex] 500 mg PO Q6H #28 Comments: You presented from the clinic with a skin infection around your tube site. This appears to be a local infection and not a bacterial peritonitis. Use the keflex antibiotic that I ordered and also apply the mupirocin ointment to the site. You were noted to have low blood pressure here and some possible dehydration. Please hold your blood pressure medications tonight. Take your blood pressure at home and resume Losartan at 50mg day if your systolic blood pressure is > 140. Continue to hold amlodipine and your lasix until you follow up with your doctor next week. Please schedule a follow up to recheck your blood pressure and recheck your kidney function on Friday. Return to the ER if you develop fever, abdominal pain, or other new concerns. Discharge Date/Time: 02/22/21 19:15
[2021-02-22 16:16] LABS: BASOPHILS # (AUTO) 0.1 10^3/uL (0.0-0.1); EOSINOPHILS # (AUTO) 0.2 10^3/uL (0.0-0.7); EOSINOPHILS % (AUTO) 2.6 %; HCT - HEMATOCRIT 31.4 % (42.0-52.0); LYMPHOCYTES # (AUTO) 0.8 10^3/uL (1.5-3.5); LYMPHOCYTES % (AUTO) 8.5 %; MEAN CORPUSCULAR HEMOGLOBIN 31.3 pg (27.0-31.0); MEAN CORPUSCULAR HGB CONC 31.8 g/dL (32.0-36.0); MEAN CORPUSCULAR VOLUME 98.1 fL (80.0-94.0); MONOCYTES # (AUTO) 0.6 10^3/uL (0.0-1.0); MONOCYTES % (AUTO) 6.7 %; NEUTROPHILS # (AUTO) 7.1 10^3/uL (1.5-6.6); NEUTROPHILS % (AUTO) 80.9 %; PLT - PLATELET COUNT 331 10^3/uL (130-450); RED CELL DISTRIBUTION WIDTH 13.6 % (12.0-15.0); WHITE BLOOD COUNT 8.8 x10^3/uL (4.8-10.8)
[2021-02-22 16:37] LABS: ALBUMIN 2.8 g/dL (3.2-5.5); ALBUMIN/GLOBULIN RATIO 0.8 (1.0-2.2); BILIRUBIN,TOTAL 0.5 mg/dL (0.2-1.0); CALCIUM 8.3 mg/dL (8.5-10.3); CREATININE 1.6 mg/dL (0.6-1.2); POTASSIUM 5.8 mmol/L (3.5-5.0); TOTAL PROTEIN 6.5 g/dL (6.7-8.2)
[2021-02-22] MEDS ORDERED: SODIUM CHLORIDE 0.9% 500 ML IV STA (16:48)
[2021-02-22] MEDS ORDERED: DEXTROSE 50% ABBOJECT 25 GM/50 ML SYRINGE IVP STA (16:49)
[2021-02-22] MEDS ORDERED: INSULIN REGULAR HUMAN 100 UNIT/1 ML 10 ML MDV IVP STA (16:49)
[2021-02-22] MEDS ORDERED: CALCIUM GLUCONATE 1,000 MG in SODIUM CHLORIDE 0.9% 50 ML IV STA (16:49)
[2021-02-22 18:44] LABS: CALCIUM 8.3 mg/dL (8.5-10.3); CREATININE 1.5 mg/dL (0.6-1.2); POTASSIUM 4.9 mmol/L (3.5-5.0)
[2021-02-22 18:58] VITALS: BP 117/68
== END 2021-02-22 19:15 | disposition home or self-care (01) ==
LOC: ED 15:04
DX: T85.79XA Infection and inflammatory reaction due to other internal prosthetic devices, implants and grafts, initial encounter (principal); Y73.1 Therapeutic (nonsurgical) and rehabilitative gastroenterology and urology devices associated with adverse incidents; I95.9 Hypotension, unspecified; K74.60 Unspecified cirrhosis of liver; E11.9 Type 2 diabetes mellitus without complications; J44.9 Chronic obstructive pulmonary disease, unspecified; I10 Essential (primary) hypertension; F17.200 Nicotine dependence, unspecified, uncomplicated; G89.29 Other chronic pain; M54.9 Dorsalgia, unspecified; H54.7 Unspecified visual loss; Z79.82 Long term (current) use of aspirin; Z79.84 Long term (current) use of oral hypoglycemic drugs; Z79.899 Other long term (current) drug therapy
CPT/HCPCS: 36415; 80048; 80053; 83605; 83690; 85025; 87040; 96365; 96375; 99284; A9270; J1815; J7040

== ENCOUNTER 2021-08-03 08:10 | Day surgery (SDC) | payer MEDICARE ==
[~2021-08-03 08:10] MED LIST changes: -CEFAZOLIN SODIUM IN 0.9 % NACL 2 GM/100 ML BAG IV ONE; +CEFAZOLIN SODIUM IN 0.9 % NACL 2 GM/50 ML BAG IV ONE
[2021-08-03] MEDS ORDERED: LACTATED RINGERS 1,000 ML IV ONE (08:27)
--- NOTE | 2021-08-03 09:41 | ANESTHESIA ---
Pre-Anesthesia VS, & Labs - Diagnosis abdominal pleurx catheter - Procedure removal abdominal pleurx catheter Vital Signs: Temp Pulse Resp BP Pulse Ox 36.9 C 85 16 156/81 H 100 08/03/21 08:27 08/03/21 08:27 08/03/21 08:27 08/03/21 08:27 08/03/21 08:27 Height: 5 ft 4 in Weight (kg): 50.9 kg Body Mass Index: 19.2 BMI Classification: Healthy weight - NPO Other (juice at 0530) Home Medications and Allergies Home Medications: Ambulatory Orders Famotidine [Pepcid] 20 mg PO BID 07/24/21 Albuterol Sulfate [Proventil Hfa] 1 puffs PO DAILY PRN 06/14/15 Budesonide/Formoterol Fumarate [Symbicort 160-4.5 Mcg Inhaler] 1 puffs PO BID 06/14/15 Cyclobenzaprine [Flexeril] 1 tab PO DAILY PRN 06/14/15 Losartan Potassium 1 tab PO DAILY 06/14/15 Metoprolol Tartrate [Lopressor] 150 mg PO BID 06/14/15 oxyCODONE [Roxicodone] 5 mg PO DAILY PRN 06/14/15 amLODIPine [Norvasc] 10 mg PO DAILY 02/22/16 Tiotropium [place] [Spiriva] 2 puffs PO DAILY 09/06/20 Multivitamin 1 tab PO DAILY 01/19/21 [place]-3/Dha/Epa/Fish Oil [Fish Oil 1,000 mg Softgel] 1 cap PO DAILY 01/19/21 Famotidine [Pepcid] 20 mg PO BID 07/24/21 Allergies/Adverse Reactions: Allergies Allergy/AdvReac Type Severity Reaction Status Date / Time BLAS Inhibitors Allergy Severe Edema Verified 07/30/21 14:01 hydrochlorothiazide Allergy Severe kidney Verified 07/30/21 14:01 failure hydrocodone bitartrate * Allergy Intermediate Itching Verified 07/30/21 14:01 [From Vicodin] codeine AdvReac Severe Respiratory Verified 07/30/21 14:01 Anes History & Medical History - Anesthetic History Anesthesia Complications: reports: No previous complications - Medical History Cardiovascular: reports: Hypertension, High cholesterol Pulmonary: reports: COPD Gastrointestinal: reports: GERD, Pancreatitis, Cirrhosis Urinary: reports: Other (history of kidney failure) Neuro: reports: None Musculoskeletal: reports: Fatigue, Chronic back pain, Other (reports "spine disease" limited neck ROM) Endocrine/Autoimmune: reports: Type 2 diabetes (diet controlled) Blood Disorders: reports: None Skin: reports: Other Smoking Status: Current every day smoker (1.5 packs per day for 50 years) Psychosocial: reports: Alcohol (quit february 2021) History of Cancer?: No - Surgical History General: reports: Colonoscopy Eyes Ears Nose Throat (EENT): reports: Cataracts, Tonsil/Adenoidectomy Orthopedic: reports: Hip replacement Exam General: Alert, Oriented x3, Cooperative, No acute distress Dental: WNL Mouth Openin Fingerbreadth Neck Mobility: Limited Mallampati classification: II Thyromental Distance: 4-6 cm Mental/Cognitive Status: Alert/Oriented X3, Normal for patient Plan Anesthesia Type: MAC Consent for Procedure(s) Verified and Reviewed: Yes Code Status: Attempt Resuscitation ASA classification: 4-Incapacitating disease Is this case an emergency?: No
[2021-08-03] MEDS ORDERED: BUPIVACAINE 0.25% PF 10 ML VIAL ONE (09:50)
[2021-08-03] MEDS ORDERED: BUPIVACAINE 0.25% PF 10 ML VIAL SUBQ ONE ×2 (09:54)
[2021-08-03] MEDS ORDERED: PROPOFOL 500 MG/50 ML 500 MG/50 ML VIAL ONE (10:02)
[2021-08-03] MEDS ORDERED: fentaNYL 100 MCG/2 ML VIAL ONE (10:15)
[2021-08-03] MEDS ORDERED: LACTATED RINGERS 400 ML IV ONE (10:48)
[2021-08-03] MEDS ORDERED: BACITRACIN ZINC OINT 1 PACKET TOP ONE ×2 (10:48)
--- NOTE | 2021-08-03 10:52 | OPERATIVE REPORT ---
Operative Report - General Procedure Date: 08/03/21 Planned Procedure: Removal Pleur-evac catheter Pre-Op Diagnosis: Ascites resolved so no longer in need for Pleur-evac catheter paracentesis Procedure Performed: Removal Pleur-evac catheter from abdomen Post Op Diagnosis: As above. - Procedure Note Primary Surgeon: Thierry Graham MD Anesthesia Provider: Graciela Mas CRNA Anesthesia Technique: Local (10 mL of 0.25% Marcaine), MAC IV Fluids (mL): 500 Estimated Blood Loss (mL): 1 Drain/Tube Type: Other (None.) Indications: As above. Findings: As above. Complications: None. - Other Other Information/Narrative: After verbal and written informed consent was obtained detailing the operation, the alternatives the operation including no operation, risks of infection, bleeding requiring transfusion with its risks, nerve injury, and and after I met with the patient confirming the surgery and the site of surgery, the patient was brought to the operative suite and placed supine on the operating table. Great care was taken to avoid pressure points to prevent pressure necrosis or nerve injury. Monitoring devices were applied along with TEDs and pneumatic compression stockings (to prevent DVT). The patient received preoperative antibiotics for surgical prophylaxis. Graciela Mas CRNA sedated and anesthetized the patient for the entire procedure. The patient was prepped and draped in the usual sterile manner. With the patient draped my initials were clearly visible. A "time in" then confirmed that the patient was identified with 3 identifiers (name, date, and medical record number), the history and physical was updated and in the chart, the signed consent confirming the procedure was in the chart, the patient was in the correct position, the aforementioned prophylactic measures were in place or given, we had the correct personnel and equipment to complete the procedure and that anesthesia and the surgical team were given an opportunity to express any concerns. With the agreement of everyone in the room we proceeded with the operation. After the catheter site was injected with 0.25% Marcaine, anesthetizing the area, and after confirming that the skin was insensate, a Cristiane was used to separate the subcutaneous tissues from the catheter and the cuff. Additional adhesions had to be sharply cut with Metzenbaum scissors. Once this was completed the catheter with gentle traction was removed from the abdominal cavity. Pressure was held at the catheter insertion site for hemostasis. The skin was approximated using one 3-0 nylon mattress suture. Due to the patient's sensitivity to adhesions, triple antibiotic ointment and no dressing was placed on the wound. At this point a timeout was performed that confirmed that all counts were correct x2, the procedure that was performed, the blood loss, the IV fluids administered, the patient's condition, and any concerns of the operating team had. Having tolerated the procedure well, the patient was taken recovery room in good and stable condition. The plan is for outpatient discharge when the patient is adequately recovered. This document was created in part using voice recognition technology. Because of the inherent limitations of the system, occasional same sounding word substitutions and grammatical errors do occur and persist despite proofreading. Please read this document for content.
--- NOTE | 2021-08-03 11:03 | ANESTHESIA POST OP EVALUATION ---
Anesthesia Post Eval - Post Anesthesia Eval Vitals: Last Vital Signs Temp 36.5 C 08/03/21 10:55 Pulse 55 L 08/03/21 10:55 Resp 14 08/03/21 10:55 BP 119/54 L 08/03/21 10:55 Pulse Ox 99 08/03/21 10:55 CV Function Including HR & BP: Stable Pain Control: Satisfactory Nausea & Vomiting: Negative Mental Status: Baseline Respiratory Status: Airway Patent Hydration Status: Satisfactory Anesthesia Complications: None
[2021-08-03 11:27] VITALS: BP 116/55
== END 2021-08-03 08:11 | disposition home or self-care (01) ==
LOC: SDS 08:10
PROVIDERS: ATTEND Surgery
DX: Z48.03 Encounter for change or removal of drains (principal); I10 Essential (primary) hypertension; J44.9 Chronic obstructive pulmonary disease, unspecified; E11.9 Type 2 diabetes mellitus without complications; F17.200 Nicotine dependence, unspecified, uncomplicated; Z79.84 Long term (current) use of oral hypoglycemic drugs; Z79.899 Other long term (current) drug therapy
CPT/HCPCS: 32552; A9270; C1729; J0690; J7120

== ENCOUNTER 2021-08-25 11:41 | Outpatient (CLI) | payer MEDICARE ==
[2021-08-25] MEDS ORDERED: IOVERSOL 320 50 ML VIAL ONE ×2 (11:58→11:59)
[2021-08-25 12:20] LABS: % IRON SATURATION 10 % (20-50); IRON 36 ug/dL (45-182); TOTAL IRON BINDING CAPACITY 360 ug/dL (250-450); TRANSFERRIN 257 mg/dL (180-329)
[2021-08-25] MEDS ORDERED: IOVERSOL 320 50 ML VIAL IVP ONE (13:23)
--- NOTE | 2021-08-25 14:48 | CT Report ---
PROCEDURE: CT abdomen and pelvis with contrast INDICATIONS: LOWER ABD PAIN CONTRAST: IV CONTRAST: Optiray 320 ml: 100 PO CONTRAST: Optiray 320 ml50 TECHNIQUE: After the administration of contrast, 5 mm thick sections acquired from the diaphragms to the sym physis. 5 mm thick coronal and sagittal reformats were acquired. For radiation dose reduction, the following was used: automated exposure control, adjustment of mA and/or kV according to patient size . COMPARISON: CT abdomen and pelvis 09/25/2016 FINDINGS: Lower thorax: Moderate right-sided pleural effusion. Heart size is enlarged Liver: Normal in size and attenuation. No contour deformity present. Slightly mottled enhancement no scout in the periphery of the right hepatic lobe. Focal enhancing nodule noted in the periphery the rig ht hepatic lobe Biliary system: No calcified cholelithiasis or pericholecystic inflammation. No evidence of bile du ct dilatation. Pancreas: Unremarkable without mass or inflammation evident. Spleen: Normal in size and density. Adrenals: Normal morphology and density. Reproductive system: Unremarkable as visualized. Urinary system: Normal renal size and attenuation. No renal calculi, hydronephrosis, or solid mass p resent. Urinary bladder unremarkable. Gastrointestinal system: The bowel appears unremarkable with no evidence of bowel obstruction or inf lammation. The stomach appears unremarkable. Appendix: No findings to suggest acute appendicitis. Peritoneal spaces: No mesenteric or retroperitoneal adenopathy. No free air. Moderate free fluid in the abdomen and pelvis Vasculature: Dense aortic atherosclerotic vascular calcification without aneurysm or dissection Musculoskeletal: Normal bone mineralization. No acute fractures. Abdominal wall intact without paris dence of ventral or inguinal hernias. Left total hip arthroplasty. Multilevel degenerative disc disea se and arthropathy IMPRESSION: 1. Moderate abdominal and pelvic ascites with moderate right pleural effusion 2. Somewhat mottled enhancement of the liver consistent with cirrhosis 3. Small 8 mm nodular enhancement in the right hepatic lobe periphery, new from the prior. Consider f ollow-up MRI hepatic protocol to evaluate for neoplasm versus regenerating nodule Reviewed by: Jluis Coleman MD on 08/25/2021 1:47 PM AKDT Approved by: Jluis Coleman MD on 08/25/2021 1:47 PM AKDT Station ID: [id number]
== END 2021-08-25 11:42 | disposition home or self-care (01) ==
LOC: DI 11:41
PROVIDERS: ATTEND Nurse Practitioner Family
DX: R18.8 Other ascites (principal); J90 Pleural effusion, not elsewhere classified; R93.2 Abnormal findings on diagnostic imaging of liver and biliary tract; K76.89 Other specified diseases of liver; D50.9 Iron deficiency anemia, unspecified
CPT/HCPCS: 36415; 82728; 83540; 84466

== ENCOUNTER 2021-09-26 10:22 | Outpatient (CLI) | payer MEDICARE ==
[2021-09-26 10:42] LABS: BASOPHILS # (AUTO) 0.1 10^3/uL (0.0-0.1); BASOPHILS % (AUTO) 1.5 %; EOSINOPHILS # (AUTO) 0.1 10^3/uL (0.0-0.7); EOSINOPHILS % (AUTO) 2.9 %; HCT - HEMATOCRIT 33.1 % (42.0-52.0); HGB - HEMOGLOBIN 10.3 g/dL (14.0-18.0); LYMPHOCYTES # (AUTO) 0.7 10^3/uL (1.5-3.5); LYMPHOCYTES % (AUTO) 16.5 %; MEAN CORPUSCULAR HGB CONC 31.1 g/dL (32.0-36.0); MEAN CORPUSCULAR VOLUME 80.3 fL (80.0-94.0); MEAN PLATELET VOLUME 8.5 fL (7.4-11.4); MONOCYTES # (AUTO) 0.4 10^3/uL (0.0-1.0); MONOCYTES % (AUTO) 10.3 %; NEUTROPHILS # (AUTO) 2.8 10^3/uL (1.5-6.6); NEUTROPHILS % (AUTO) 68.8 %; PLT - PLATELET COUNT 214 10^3/uL (130-450); RED BLOOD COUNT 4.12 10^6/uL (4.70-6.10); RED CELL DISTRIBUTION WIDTH 25.2 % (12.0-15.0); WHITE BLOOD COUNT 4.1 x10^3/uL (4.8-10.8)
[2021-09-26 10:53] LABS: INR 1.2 (0.8-1.2)
[2021-09-26] MEDS ORDERED: LIDOCAINE-MPF 1% 10 ML AMP ONE (10:54)
[2021-09-26 10:57] LABS: CALCIUM 9.2 mg/dL (8.5-10.3); CREATININE 0.9 mg/dL (0.6-1.2); POTASSIUM 4.2 mmol/L (3.5-5.0)
[2021-09-26 11:01] LABS: PARTIAL THROMBOPLASTIN TIME 32.1 secs (24.9-33.3)
--- NOTE | 2021-09-26 12:30 | XRAY Report ---
PROCEDURE: Chest 2 View X-Ray INDICATIONS: ALCOHOLIC CIRRHOSIS TECHNIQUE: 2 view(s) of the chest. COMPARISON: None. FINDINGS: Surgical changes and devices: None. Lungs and pleura: No pleural effusions or pneumothorax. Lungs are clear. Mediastinum: Mediastinal contours are normal. Heart size is normal. Bones and chest wall: No suspicious bony abnormalities. Soft tissues appear unremarkable. IMPRESSION: No acute cardiopulmonary findings. Reviewed by: Carla Meng MD on 09/26/2021 12:29 PM PDT Approved by: Carla Meng MD on 09/26/2021 12:29 PM PDT Station ID: [id number]
--- NOTE | 2021-09-26 15:53 | Ultrasound Report ---
PROCEDURE: Abdomen Limited INDICATIONS: ALCOHOLIC CIRRHOSIS, ASCITES TECHNIQUE: Real-time focused scanning was performed of the abdomen, with image documentation. COMPARISON: None FINDINGS: Minimal ascites. Largest pocket is in the left lower quadrant. Multiple septations identified in left lower quadrant ascites. IMPRESSION: Minimal ascites. Ascites volume is insufficient for safe paracentesis. Reviewed by: Shaneka Zuniga MD, PhD on 09/26/2021 3:52 PM PDT Approved by: Shaneka Zuniga MD, PhD on 09/26/2021 3:52 PM PDT Station ID: [id number]
== END 2021-09-26 10:23 | disposition home or self-care (01) ==
LOC: DI 10:22
PROVIDERS: ATTEND Nurse Practitioner Family
DX: K70.31 Alcoholic cirrhosis of liver with ascites (principal)
CPT/HCPCS: 36415; 80048; 85025; 85610; 85730

== ENCOUNTER 2021-10-25 08:00 | Outpatient (CLI) | payer MEDICARE ==
[2021-10-25] MEDS ORDERED: GADOBUTROL 7.5 MMOL/7.5 ML VIAL ONE (12:22)
[2021-10-25 12:32] LABS: BASOPHILS # (AUTO) 0.1 10^3/uL (0.0-0.1); BASOPHILS % (AUTO) 1.2 %; EOSINOPHILS # (AUTO) 0.2 10^3/uL (0.0-0.7); EOSINOPHILS % (AUTO) 3.7 %; HCT - HEMATOCRIT 34.5 % (42.0-52.0); HGB - HEMOGLOBIN 11.1 g/dL (14.0-18.0); LYMPHOCYTES # (AUTO) 0.9 10^3/uL (1.5-3.5); LYMPHOCYTES % (AUTO) 19.3 %; MEAN CORPUSCULAR HEMOGLOBIN 26.9 pg (27.0-31.0); MEAN CORPUSCULAR HGB CONC 32.2 g/dL (32.0-36.0); MEAN CORPUSCULAR VOLUME 83.5 fL (80.0-94.0); MEAN PLATELET VOLUME 8.8 fL (7.4-11.4); MONOCYTES # (AUTO) 0.5 10^3/uL (0.0-1.0); MONOCYTES % (AUTO) 9.4 %; NEUTROPHILS # (AUTO) 3.2 10^3/uL (1.5-6.6); NEUTROPHILS % (AUTO) 66.2 %; PLT - PLATELET COUNT 164 10^3/uL (130-450); RED BLOOD COUNT 4.13 10^6/uL (4.70-6.10); RED CELL DISTRIBUTION WIDTH 19.9 % (12.0-15.0); WHITE BLOOD COUNT 4.9 x10^3/uL (4.8-10.8)
[2021-10-25 12:48] LABS: ALBUMIN 4.1 g/dL (3.2-5.5); ALBUMIN/GLOBULIN RATIO 1.1 (1.0-2.2); BILIRUBIN,TOTAL 0.5 mg/dL (0.2-1.0); CALCIUM 9.3 mg/dL (8.5-10.3); TOTAL PROTEIN 7.9 g/dL (6.7-8.2)
[2021-10-25] MEDS ORDERED: GADOBUTROL 7.5 MMOL/7.5 ML VIAL IVP ONE (16:19)
--- NOTE | 2021-10-30 12:06 | MRI Report ---
PROCEDURE: Abdomen W/WO INDICATIONS: NODULE OF LIVER. Cirrhosis. CONTRAST: IV CONTRAST: Gadavist ml: 4.9 TECHNIQUE: Coronal ultra fast SE, axial 2D spoiled GE in- and [id number]; axial breath-hold T2 fast SE. Dynam ic axial ultra fast GE during the administration of contrast; post-contrast coronal ultra fast GE or 2D spoiled GE with fat saturation from the hepatic dome to the iliac crests. Optional diffusion weig hted imaging and ADC may be performed. COMPARISON: CT abdomen pelvis 08/25/2021, abdominal ultrasound 02/25/2020. CT chest abdomen pelvis . FINDINGS: Image quality: Excellent. Lung bases: Small right pleural effusion. Solid organs: Liver: Morphologic changes of cirrhosis. Observations are as follows: -Segment 7: Subtle ill-defined focus of arterial phase hyperenhancement corresponding to the focus of enhancement on the recent abdominal CT. This measures approximately 9 mm (axial arterial phase postc ontrast series 11 image 15). No definite washout appearance or pseudocapsule or T2 correlate. LR-3. -Segment 4B: 1.3 cm observation at the anterior aspect of segment IVb (for example axial T1 precontra st series 9 image 34). There is heterogeneous but predominantly peripheral T2 hyperintensity. The fin ding appears to be peripherally enhancing on all postcontrast series. No definitive or substantial di ffusion restriction. This may correspond to the hyperechoic nodule present on the 2019 comparison ult rasound and allowing for differences in modality it probably is not substantially changed in size sin ce that time. Indeterminate. Several small gallstones are present. Similar mild dilation of the extrahepatic bile duct measuring a pproximately 11 mm. No intrahepatic biliary ductal dilation demonstrated. No choledocholithiasis visu alized on this non-MRCP exam. Similar mild prominence of the main pancreatic duct to the level of the ampulla, not substantially changed since 2017. Spleen is nonenlarged. No adrenal nodules. No hydron ephrosis. A few small renal cortical cysts are present not requiring additional follow-up. Nodes and vessels: No retroperitoneal or mesenteric adenopathy by size criteria. Aorta and inferior vena cava are normal in size. Bowel and peritoneum: Unenhanced bowel loops are normal in caliber. Moderate amount of abdominal pankaj e fluid. Bones and soft tissues: Bone marrow is unremarkable in overall signal. IMPRESSION: 1. Morphologic changes of the liver compatible with history of cirrhosis. Moderate amount of abdomina l free fluid present. 2. Similar size of the region of enhancement in hepatic segment 7 present on the 08/25/2021 CT. It is consistent with LI-RADS Category 3. Attention on follow-up is recommended. Consider follow-up imaging in 6 months or other interval at clinical discretion. 3. Indeterminate observation in hepatic segment IVb. It may correspond to a finding previously visual ized on the 2019 comparison abdominal ultrasound. The appearance is non-specific. Lack of substantial change since that time could indicate an etiology such as an atypical hemangioma, but neoplasm is no t excluded. Attention to this finding on future exams is recommended. 4. No LI-RADS category 4 or 5 observations visualized. Reviewed by: Allan Tucker MD on 10/26/2021 10:38 AM PDT Approved by: Allan Tucker MD on 10/26/2021 10:38 AM PDT Station ID: [id number]
== END 2021-10-25 23:59 | disposition home or self-care (01) ==
LOC: DI 08:00
PROVIDERS: ATTEND Nurse Practitioner Family
DX: K76.9 Liver disease, unspecified (principal); R18.8 Other ascites; R94.31 Abnormal electrocardiogram [ECG] [EKG]
CPT/HCPCS: 36415; 74183; 80053; 84443; 85025; A9585

== ENCOUNTER 2021-11-16 13:13 | Emergency (ER) | payer MEDICARE ==
[2021-11-16 13:35] VITALS: BP 155/63
--- NOTE | 2021-11-16 13:42 | ED Physician Documentation ---
PD HPI CHEST PAIN - Stated complaint Stated Complaint: CHEST PAIN - Chief complaint Chief Complaint: Cardiac - History obtained from History obtained from: Patient - Additional information Additional information: Hospitalized in [place] and stented on Friday, 5 days ago for non-STEMI. He has his discharge paperwork with him, it does not say what his anatomy is. Has been compliant w meds. He developed substernal chest pressure radiating to both sides at 1030 this morning while at rest while having a cigarette. It is persistent. Review of Systems Ten Systems: 10 systems reviewed and negative Constitutional: denies: Fever, Chills Cardiac: reports: Chest pain / pressure Respiratory: reports: Dyspnea. denies: Cough PD PAST MEDICAL HISTORY - Past Medical History Cardiovascular: Hypertension, High cholesterol Respiratory: COPD Neuro: None Endocrine/Autoimmune: Type 2 diabetes (diet controlled) GI: GERD, Pancreatitis, Cirrhosis : Other (history of kidney failure) HEENT: Chronic vision loss Psych: Anxiety, Claustrophobia Musculoskeletal: Fatigue, Chronic back pain, Other (reports "spine disease" limited neck ROM) Derm: Other - Past Surgical History Past Surgical History: Yes General: Colonoscopy Ortho: Hip replacement HEENT: Cataracts, Tonsil/Adenoidectomy - Present Medications Home Medications: Ambulatory Orders Medication Instructions Recorded Confirmed Albuterol Sulfate [Proventil Hfa] 1 puffs PO DAILY PRN 06/14/15 08/17/21 Budesonide/Formoterol Fumarate 1 puffs PO BID 06/14/15 08/17/21 [Symbicort 160-4.5 Mcg Inhaler] Cyclobenzaprine [Flexeril] 1 tab PO DAILY PRN 06/14/15 08/17/21 Losartan Potassium 1 tab PO DAILY 06/14/15 08/17/21 Metoprolol Tartrate [Lopressor] 150 mg PO BID 06/14/15 08/17/21 oxyCODONE [Roxicodone] 5 mg PO DAILY PRN 06/14/15 08/17/21 amLODIPine [Norvasc] 10 mg PO DAILY 02/22/16 08/17/21 Tiotropium [place] [Spiriva] 2 puffs PO DAILY 09/06/20 08/17/21 Multivitamin 1 tab PO DAILY 01/19/21 08/17/21 Banner-3/Dha/Epa/Fish Oil [Fish Oil 1 cap PO DAILY 01/19/21 08/17/21 1,000 mg Softgel] Famotidine [Pepcid] 20 mg PO BID 07/24/21 08/17/21 - Allergies Allergies/Adverse Reactions: Allergies Allergy/AdvReac Type Severity Reaction Status Date / Time BLAS Inhibitors Allergy Severe Edema Verified 11/16/21 13:34 hydrochlorothiazide Allergy Severe kidney Verified 11/16/21 13:34 failure hydrocodone bitartrate * Allergy Intermediate Itching Verified 11/16/21 13:34 [From Vicodin] codeine AdvReac Severe Respiratory Verified 11/16/21 13:34 - Social History Does the pt smoke?: Yes Smoking Status: Current every day smoker (1.5 packs per day for 50 years) Does the pt drink ETOH?: Yes Does the pt have substance abuse?: No - Family History Family history: reports: Non contributory - Immunizations Immunizations are current?: Yes - POLST Patient has POLST: No PD ED PE NORMAL - Vitals Vital signs reviewed: Yes - General General: Alert and oriented X 3, No acute distress, Other (He is thin to the point of being cachectic. He says this was because he developed some liver failure related to alcohol about 7 months ago and has been not drinking since.) - HEENT HEENT: PERRL, EOMI - Neck Neck: Supple, no meningeal sign, No bony TTP - Cardiac Cardiac: RRR, No murmur - Respiratory Respiratory: No respiratory distress, Clear bilaterally - Abdomen Abdomen: Normal bowel sounds, Soft, Non tender - Back Back: No CVA TTP, No spinal TTP - Derm Derm: Other (Lots of bruising BUE) - Extremities Extremities: No edema, No calf tenderness / cord - Neuro Neuro: Alert and oriented X 3, Normal speech Results - Vitals Vitals: Vital Signs - 24 hr 11/16/21 13:30 Temperature 36.9 C Heart Rate 72 Respiratory 16 Rate Blood Pressure 155/63 H O2 Saturation 100 Oxygen O2 Source Room air - EKG (time done) arrival Rate: Rate (enter#) (65) Rhythm: NSR [place]: Normal Intervals: Normal DC QRS: Normal Ischemia: ST elevation c/w ischemia (ST elevation in 2 3 and F, also a bit in V2 and V3), ST depression (Lateral ST depression) PD MEDICAL DECISION MAKING - ED course ED course: 65-year-old gentleman presents with substernal chest pressure. He is 5 days out from stenting, anatomy unknown. EKG consistent with STEMI and STEMI alert activated. Transfer was delayed somewhat by no immediate rig available and [facility] not here. He was excepted to [facility] ED by Dr. Carlos Shaw at approximately 1340. He was given 5000 units of heparin, 300 mg of Plavix, 25 mg p.o. metoprolol, 40 mg p.o. atorvastatin, 324 mg of aspirin, And 1 inch of Nitropaste. Note made that EMS was summoned to his house, he brings with him the EKG that they did from 11:55 AM. At that time there were no ST elevations. - Critical Care Time(min): 45 Time Includes: Direct patient care, Review records, Reassess patient, Document care, Coordinate care, Medical consult, Family consult for tx dec Data interpretation: Labs, Pulse ox, CXR Procedures excluded from critical care time: EKG Departure - Departure Disposition: 02 Transfer Acute Care Hosp Clinical Impression: ST elevation myocardial infarction (STEMI) of inferior wall Condition: Critical
[2021-11-16] MEDS ORDERED: NITROGLYCERIN 2% PASTE TOP STA (13:43)
[2021-11-16] MEDS ORDERED: CLOPIDOGREL 300 MG TABLET PO STA (13:43)
[2021-11-16] MEDS ORDERED: ASPIRIN CHEW 81 MG TABLET PO STA (13:43)
[2021-11-16] MEDS ORDERED: HEPARIN 5,000 UNIT/ML VIAL IVP STA (13:43)
[2021-11-16] MEDS ORDERED: ATORVASTATIN 40 MG TABLET PO STA (13:43)
[2021-11-16] MEDS ORDERED: METOPROLOL TARTRATE 50 MG TABLET PO STA (13:43)
[2021-11-16 13:50] LABS: BASOPHILS # (AUTO) 0.1 10^3/uL (0.0-0.1); BASOPHILS % (AUTO) 0.8 %; EOSINOPHILS # (AUTO) 0.2 10^3/uL (0.0-0.7); EOSINOPHILS % (AUTO) 2.9 %; HCT - HEMATOCRIT 33.8 % (42.0-52.0); HGB - HEMOGLOBIN 10.9 g/dL (14.0-18.0); LYMPHOCYTES # (AUTO) 0.7 10^3/uL (1.5-3.5); LYMPHOCYTES % (AUTO) 12.4 %; MEAN CORPUSCULAR HEMOGLOBIN 28.1 pg (27.0-31.0); MEAN CORPUSCULAR HGB CONC 32.2 g/dL (32.0-36.0); MEAN CORPUSCULAR VOLUME 87.1 fL (80.0-94.0); MEAN PLATELET VOLUME 9.2 fL (7.4-11.4); MONOCYTES # (AUTO) 0.4 10^3/uL (0.0-1.0); MONOCYTES % (AUTO) 6.8 %; NEUTROPHILS # (AUTO) 4.6 10^3/uL (1.5-6.6); NEUTROPHILS % (AUTO) 76.9 %; PLT - PLATELET COUNT 170 10^3/uL (130-450); RED BLOOD COUNT 3.88 10^6/uL (4.70-6.10); WHITE BLOOD COUNT 5.9 x10^3/uL (4.8-10.8)
--- NOTE | 2021-11-16 14:13 | XRAY Report ---
PROCEDURE: Chest 1 View X-Ray INDICATIONS: Chest pain TECHNIQUE: One view of the chest was acquired. COMPARISON: 09/26/2021 FINDINGS: Surgical changes and devices: None. Lungs and pleura: No pleural effusions or pneumothorax. Lungs are clear. Mediastinum: Mediastinal contours appear normal. Heart size is normal. Bones and chest wall: No suspicious bony lesions. Overlying soft tissues appear unremarkable. IMPRESSION: No acute cardiopulmonary pathology. Reviewed by: Lex Cuenca MD on 11/16/2021 2:12 PM PDT Approved by: Lex Cuenca MD on 11/16/2021 2:12 PM PDT Station ID: [id number]
[2021-11-16 14:26] LABS: ALBUMIN 3.9 g/dL (3.2-5.5); ALBUMIN/GLOBULIN RATIO 1.1 (1.0-2.2); BILIRUBIN,TOTAL 0.4 mg/dL (0.2-1.0); CALCIUM 9.3 mg/dL (8.5-10.3); CREATININE 0.8 mg/dL (0.6-1.2); POTASSIUM 4.4 mmol/L (3.5-5.0); TOTAL PROTEIN 7.6 g/dL (6.7-8.2)
== END 2021-11-16 14:14 | disposition short-term general hospital (02) ==
LOC: ED 13:13
DX: I22.1 Subsequent ST elevation (STEMI) myocardial infarction of inferior wall (principal); I21.3 ST elevation (STEMI) myocardial infarction of unspecified site; I11.0 Hypertensive heart disease with heart failure; E11.9 Type 2 diabetes mellitus without complications; F17.200 Nicotine dependence, unspecified, uncomplicated; Z20.822 Contact with and (suspected) exposure to COVID-19
CPT/HCPCS: 36415; 71045; 80053; 83690; 84484; 85025; 87635; 93005; 96374; 99285; 99291; A9270

== ENCOUNTER 2021-11-25 12:54 | Outpatient (CLI) | payer MEDICARE | END 2021-11-25 12:55 | disposition short-term general hospital (02) | LOC: EMS 12:54 | DX: I21.3 ST elevation (STEMI) myocardial infarction of unspecified site (principal) | CPT/HCPCS: A0425; A0427 ==

== ENCOUNTER 2022-02-23 12:45 | Outpatient (CLI) | payer MEDICARE ==
[~2022-02-23 12:45] MED LIST changes: -CEFAZOLIN SODIUM IN 0.9 % NACL 2 GM/50 ML BAG IV ONE; +GADOBUTROL 15 MMOL/15 ML VIAL ONE
[2022-02-23] MEDS ORDERED: GADOBUTROL 7.5 MMOL/7.5 ML VIAL ONE (13:08)
[2022-02-23] MEDS ORDERED: GADOBUTROL 7.5 MMOL/7.5 ML VIAL IVP ONE (14:52)
--- NOTE | 2022-02-24 13:54 | MRI Report ---
PROCEDURE: ABDOMEN W/WO INDICATIONS: LIVER LESION CONTRAST: 5.0 TECHNIQUE: Coronal ultra fast SE, axial 2D spoiled GE in- and [id number]; axial breath-hold T2 fast SE. Dynam ic axial ultra fast GE during the administration of contrast; post-contrast coronal ultra fast GE or 2D spoiled GE with fat saturation from the hepatic dome to the iliac crests. Optional diffusion weig hted imaging and ADC may be performed. COMPARISON: 10/25/2021, CT abdomen and pelvis 08/25/2021 FINDINGS: Image quality: Decreased due to signal loss in the dorsal abdominal region, particularly on postcontr ast sequences. Lung bases: Small right and trace left pleural effusion. Heart size is normal. Solid organs: Liver: The liver is enlarged, particularly left lobe and caudate hypertrophy. There are linear T2 ban ds of fibrosis in the left lobe anteriorly. Segment 7: The previously seen 9 mm arterially enhancing observation in segment 7 is subtle, but appe ars to have increased size measuring 1.3 cm in transverse diameter (03/18). Observation not seen on t he venous or delayed phase. Specifically, no washout and no pseudocapsule. Segment IVb: The subcapsular area anteriorly demonstrates an adjacent tubular structure consistent wi th a vessel or needle tract. There is a blush of arterial enhancement, which diminishes slightly but is persistent on all phases. Caudally,there is a subcapsular heterogeneous, thin, ovoid fluid collect ion. No significant changes. Given imaging limitations, no other arterially enhancing hepatic observations. Other solid organs: The spleen is at the upper limits of normal in length measuring 12.5 cm, stable. There are probably a few dependent tiny gallstones in the gallbladder body. No wall thickening. Commo n bile duct is dilated up to 10 mm, stable. No intrahepatic biliary dilatation. The distal common mejia t is not well seen due to artifact. The pancreas is normal. The duct is prominent, its contour is smo oth. No adrenal nodules. A few small cortical renal cysts are present. Nodes and vessels: Several small periaortic/periceliac lymph nodes are unchanged in size and number. No retroperitoneal or mesenteric adenopathy by size criteria. Aorta and inferior vena cava are norm al in size. Bowel and peritoneum: Small quantity of intraperitoneal ascites. Quantity has decreased slightly sinc e the prior study. Stomach and visible bowel loops are unremarkable. Bones and soft tissues: No ventral hernias. Bone marrow is normal in overall signal. IMPRESSION: 1. Hepatic cirrhosis and possible early fibrosis. There are changes of early portal hypertension. New ntity of ascites has decreased compared to prior. 2. Suboptimal imaging of the dorsal liver given artifact, but possible size increase of an arterially enhancing segment 7 observation. Multiphase hepatic protocol CT is recommended given modality challe nges imaging this portion of the liver. This observation is a large 3/possible LR 4. Correlation with AFP should also be considered. 3. Unchanged and nonspecific observation in segment IVb of the liver. Findings are most suggestive of vascular shunting, possibly AVM if there has been a prior biopsy, or less likely atypical hemangioma . Subtle adjacent subcapsular fluid collection suggests small subcapsular hematoma. 4. Chronic mild common bile duct dilatation. Reviewed by: Traci Berman MD on 02/24/2022 12:52 PM ZACHARY Approved by: Traci Berman MD on 02/24/2022 12:52 PM ZACHARY Station ID: [id number]
== END 2022-02-23 12:46 | disposition home or self-care (01) ==
LOC: LAB 12:45
PROVIDERS: ATTEND Internal Medicine Transplant Hepatology
DX: K76.9 Liver disease, unspecified (principal); K74.60 Unspecified cirrhosis of liver; K83.9 Disease of biliary tract, unspecified
CPT/HCPCS: 36415; 74183; 82565; A9585

== ENCOUNTER 2022-03-08 14:35 | Outpatient (CLI) | payer MEDICARE ==
--- NOTE | 2022-03-08 17:36 | Ultrasound Report ---
PROCEDURE: Duplex Lwr Ext Arterial RT INDICATIONS: PAIN IN RIGHT LEG TECHNIQUE: Color and pulse Doppler interrogation was performed of the right lower extremity arterial system, wit h image documentation. COMPARISON: None FINDINGS: Common femoral artery: 80.5 cm/sec, with biphasic flow. Deep femoral artery: 112 cm/sec, with monophasic flow. Proximal superficial femoral artery: Occluded or nearly occluded Mid superficial femoral artery: Occluded or nearly occluded Distal superficial femoral artery: 44.8 cm/sec, with monophasic low resistance flow. Popliteal artery: 50.0 cm/sec, with monophasic parvus tardus low resistance flow. Posterior tibial artery: 25.4 cm/sec, with monophasic low resistance flow. Anterior tibial artery/dorsalis pedis: 25.6 cm/sec, with monophasic low resistance flow. Lal-scale imaging description: There is either a long segment SFA occlusion or near occlusive steno tic disease with low resistance monophasic waveforms from the distal SFA through the ankle. The dista l posterior tibial and anterior tibial vessels appear widely patent with markedly diminished flow. IMPRESSION: Findings are consistent with long segment SFA occlusion or high-grade stenosis. Comment: Consider MR angiography versus CT angiography for further evaluation. Reviewed by: Diego Pa MD on 03/08/2022 5:35 PM PDT Approved by: Diego Pa MD on 03/08/2022 5:35 PM PDT Station ID: [id number]
== END 2022-03-08 14:36 | disposition home or self-care (01) ==
LOC: DI 14:35
PROVIDERS: ATTEND Nurse Practitioner Family
DX: M79.604 Pain in right leg (principal)

== ENCOUNTER 2022-06-07 13:07 | Outpatient (CLI) | payer MEDICARE ==
[2022-06-07] MEDS ORDERED: iohexoL-300 100 ML VIAL ONE (13:22)
[2022-06-07] MEDS ORDERED: iohexoL-300 100 ML VIAL IVP ONE (13:37)
--- NOTE | 2022-06-07 14:15 | CT Report ---
PROCEDURE: ABDOMEN W/WO INDICATIONS: LIVER LESION CONTRAST: 100ml omni 300 TECHNIQUE: 4 phase scanning was performed. After the administration of intravenous contrast, 5 mm thick section s acquired from the diaphragm to the symphysis. 5 mm coronal and sagittal reformats were acquired. For radiation dose reduction, the following was used: automated exposure control, adjustment of mA a nd/or kV according to patient size. COMPARISON: 02/23/2022 FINDINGS: Image quality: Good Lower chest: No basal effusions. Lung bases are unremarkable. Nonspecific distal esophageal wall thic kening. Suspected coronary calcifications. Solid organs: Liver cirrhosis. Segment 7 hypervascular lesion (5/11) measures 8 mm. No applicable major or ancillary features. LR 3. Another segment 7 lesion (6/13) measures 8 mm, without corresponding hypervascularity on arterial pha se. Another hypoattenuating lesion is seen in segment 8 (6/11), without corresponding hypervascularity on arterial phase. Please note this arterial phase was imaged too early for maximum sensitivity. Gallbladder is unremarkable. Prominent biliary tree is again seen, stable. No pathologic dilation of the pancreatic duct. Borderline splenomegaly. No adrenal nodules. Bosniak 1 and 2 renal lesions are p resent, for which no dedicated follow-up is necessary per 2019 proposed guidelines. No hydronephrosis Vessels and lymph nodes: Moderate degree of atherosclerotic disease in the aorta and its branches. Th e main portal vein is patent. A few portal venous varices are present. Bowel and peritoneum: Small volume ascites. No bowel obstruction. Body wall: Unremarkable Bones: Heterogeneous marrow attenuation. No definitely suspicious osseous lesion. IMPRESSION: Multiple small LR 3 lesions as above. Please note this studies arterial phase is too early as evidenc ed by lack of contrast in the portal veins, limiting evaluation hypervascularity. Continued HCC surve illance is recommended. Reviewed by: Kenny Monreal MD on 06/07/2022 2:14 PM PST Approved by: Kenny Monreal MD on 06/07/2022 2:14 PM PST Station ID: [id number]
== END 2022-06-07 13:08 | disposition home or self-care (01) ==
LOC: DI 13:07
PROVIDERS: ATTEND Internal Medicine Transplant Hepatology
DX: K76.9 Liver disease, unspecified (principal)
CPT/HCPCS: 74170; Q9967

== ENCOUNTER 2022-07-04 14:53 | Outpatient (CLI) | payer MEDICARE ==
--- NOTE | 2022-07-04 16:20 | Ultrasound Report ---
PROCEDURE: Carotid Doppler Complete INDICATIONS: DIZZINESS TECHNIQUE: Color and pulse Doppler interrogation was performed of both carotid systems, with image documentation and velocity measurements. COMPARISON: None. FINDINGS: Right side: Brachial blood pressure: 125/67 mm Hg. Common carotid artery peak systolic velocity: 59 cm/sec. Internal carotid artery peak systolic velocity: Occluded Internal carotid artery end diastolic velocity: Occluded External carotid artery peak systolic velocity: 259 cm/sec. Lal scale imaging description: ICA occlusion Percent internal carotid artery stenosis: ICA occlusion . Vertebral artery: Flow direction is antegrade. Left side: Brachial blood pressure: 141/67 mm Hg. Common carotid artery peak systolic velocity: 97 cm/sec. Internal carotid artery peak systolic velocity: 194 cm/sec. Internal carotid artery end diastolic velocity: 59 cm/sec. External carotid artery peak systolic velocity: 271 cm/sec. ICA/CCA peak systolic ratio: 2.0 . Lal scale imaging description: Moderate plaque at the bifurcation Percent internal carotid artery stenosis: 50-69% stenosis . Vertebral artery: Flow direction is antegrade. IMPRESSION: Right ICA occlusion. 50-60% stenosis of the left internal carotid artery. The estimate of stenosis included in the report of the imaging study was calculated using the NASCET method Reviewed by: Candice Nieto MD on 07/04/2022 4:19 PM PST Approved by: Candice Nieto MD on 07/04/2022 4:19 PM PST Station ID: [id number]
--- NOTE | 2022-07-04 16:21 | CT Report ---
PROCEDURE: HEAD WO INDICATIONS: DIZZINESS TECHNIQUE: Noncontrast 4.5 mm thick angled axial sections acquired from the foramen magnum to the vertex. For r adiation dose reduction, the following was used: automated exposure control, adjustment of mA and/or kV according to patient size. COMPARISON: None. FINDINGS: Image quality: Excellent. CSF spaces: Basal cisterns are patent. No extra-axial fluid collections. Ventricles are normal in size and shape. Brain: No midline shift. No intracranial masses or hemorrhage. Lal-white matter interface is norm al. Skull and face: Calvarium and visualized facial bones are intact, without suspicious lesions. Sinuses: Visualized sinuses and mastoids are clear. IMPRESSION: 1. No acute intracranial process. Reviewed by: Candice Nieto MD on 07/04/2022 4:20 PM [facility] Approved by: Candice Nieto MD on 07/04/2022 4:20 PM [facility] Station ID: [id number]
== END 2022-07-04 14:54 | disposition home or self-care (01) ==
LOC: DI 14:53
PROVIDERS: ATTEND Nurse Practitioner Family
DX: R42 Dizziness and giddiness (principal); I65.23 Occlusion and stenosis of bilateral carotid arteries
CPT/HCPCS: 93880

== ENCOUNTER 2022-07-04 16:34 | Emergency (ER) | payer MEDICARE ==
--- NOTE | 2022-07-04 16:57 | ED Physician Documentation ---
PD HPI FOCAL NEURO - Stated complaint Stated Complaint: ARTERY BLOCKED - Chief complaint Chief Complaint: Neuro - History obtained from History obtained from: Patient - History of Present Illness Timing - onset: How many weeks ago (The patient has noticed for several weeks of having intermittent feelings of lightheaded nests without any local focal weakness nor loss of vision. He will feel presyncopal but no passing out. He has noticed this with standing and walking intermittently. He saw his provider yesterday.) Timing - duration: Seconds, Minutes (The patient has noticed feeling of lightheadedness intermittently over the past several weeks. He did have a change in his blood pressure medicine increased several weeks ago prior to this.) Timing - details: Intermittant Severity of deficit: Moderate Weakness: No: Face, Arm, Leg Numbness: No: Face, Arm Associated symptoms: Other (no loss of vision with episodes. No focal weakness.). No: Headache, Nausea / vomiting, Chest pain Contributing factors: positive: Vascular dz. negative: Anticoagulated, Atrial fibrillation Baseline status: positive: A&OX3, ambulatory, indep Recently seen: Clinic (yesterday via TeleHealth appt. Had outpatient labs done at [facility] and had outpt head CT and carotid dopplers ordered, which were done today. The carotid Doppler showed a occlusion of the right internal carotid artery and the patient was referred directly to the ER from imaging.) Review of Systems Constitutional: denies: Fever, Chills Eyes: denies: Loss of vision Nose: denies: Rhinorrhea / runny nose, Congestion Throat: denies: Sore throat Cardiac: denies: Chest pain / pressure, Palpitations Respiratory: denies: Dyspnea, Cough GI: denies: Nausea, Vomiting, Diarrhea, Bloody / black stool Neurologic: denies: Focal weakness, Numbness, Near syncope (but has had lightheadedness and feeling of confused/foggy thinking intermittently. He feels okay here in the ER right now.), Headache PD PAST MEDICAL HISTORY - Past Medical History Cardiovascular: Hypertension, High cholesterol, Coronary artery disease (He has had coronary artery stents placed by cardiology at [facility].), Peripheral Vascular Disease (The patient does have a history of peripheral vascular disease with a right femoral stenting done by vascular surgeon in [facility] within the past year. 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 Prior history of significant hypertriglyceridemia.) Respiratory: COPD Neuro: None Endocrine/Autoimmune: Type 2 diabetes (diet controlled) GI: GERD, Pancreatitis, Cirrhosis : Other (history of kidney failure) HEENT: Chronic vision loss Psych: Anxiety, Claustrophobia Musculoskeletal: Fatigue, Chronic back pain, Other (reports "spine disease" limited neck ROM) Derm: Other - Past Surgical History Past Surgical History: Yes General: Colonoscopy Ortho: Hip replacement HEENT: Cataracts, Tonsil/Adenoidectomy - Present Medications Home Medications: Ambulatory Orders Medication Instructions Recorded Confirmed Albuterol Sulfate [Proventil Hfa] 1 puffs PO BID 06/14/15 08/17/21 Budesonide/Formoterol Fumarate 1 puffs PO BID 06/14/15 08/17/21 [Symbicort 160-4.5 Mcg Inhaler] Losartan Potassium 1 tab PO DAILY 06/14/15 08/17/21 Metoprolol Tartrate [Lopressor] 50 mg PO BID 06/14/15 08/17/21 oxyCODONE [Roxicodone] 5 mg PO DAILY PRN 06/14/15 08/17/21 amLODIPine [Norvasc] 2.5 mg PO DAILY 02/22/16 08/17/21 Tiotropium [place] [Spiriva] 2 puffs PO DAILY 09/06/20 08/17/21 Multivitamin 1 tab PO DAILY 01/19/21 08/17/21 [place]-3/Dha/Epa/Fish Oil [Fish Oil 1 cap PO DAILY 01/19/21 08/17/21 1,000 mg Softgel] Aspirin [Aspirin EC] 81 mg DAILY 11/16/21 11/16/21 Atorvastatin Calcium [Lipitor] 80 mg DAILY 11/16/21 11/16/21 Pantoprazole [Protonix] 40 mg DAILY 11/16/21 11/16/21 Prasugrel HCl [Effient] 75 mg DAILY 11/16/21 11/16/21 Sennosides [Senna] 2 tab BID 11/16/21 11/16/21 - Allergies Allergies/Adverse Reactions: Allergies Allergy/AdvReac Type Severity Reaction Status Date / Time BLAS Inhibitors Allergy Severe Edema Verified 07/04/22 16:53 hydrochlorothiazide Allergy Severe kidney Verified 07/04/22 16:53 failure hydrocodone bitartrate * Allergy Intermediate Itching Verified 07/04/22 16:53 [From Vicodin] codeine AdvReac Severe Respiratory Verified 07/04/22 16:53 - Social History Does the pt smoke?: Yes Smoking Status: Current every day smoker (1.5 packs per day for 50 years) Does the pt drink ETOH?: Yes Does the pt have substance abuse?: No - Immunizations Immunizations are current?: Yes - POLST Patient has POLST: No PD ED PE NORMAL - Vitals Vital signs reviewed: Yes - General General: Alert and oriented X 3, No acute distress, Well developed/nourished - HEENT HEENT: Ears normal (moderate wax, particulaly on right. Not occluding. ), Pharynx benign - Neck Neck: Supple, no meningeal sign, No adenopathy. No: No bruit (mild on left) - Cardiac Cardiac: RRR - Respiratory Respiratory: No respiratory distress, Clear bilaterally - Abdomen Abdomen: Soft, Non tender - Derm Derm: Normal color, Warm and dry - Extremities Extremities: Normal ROM s pain, No edema, No calf tenderness / cord - Neuro Neuro: Alert and oriented X 3, No motor deficit, Normal speech Eye Opening: Spontaneous Motor: Obeys Commands Verbal: Oriented GCS Score: 15 - Psych Psych: Normal mood, Normal affect Results - Vitals Vitals: Vital Signs - 24 hr 07/04/22 07/04/22 07/04/22 16:48 17:04 19:00 Temperature 37.0 C Heart Rate 98 93 66 Respiratory 15 18 11 L Rate Blood Pressure 164/86 H 157/83 H 148/68 H O2 Saturation 100 99 100 07/04/22 21:00 Temperature Heart Rate 66 Respiratory 11 L Rate Blood Pressure 120/76 O2 Saturation 100 Oxygen O2 Source Room air - Labs Labs: Laboratory Tests 07/04/22 07/04/22 17:35 17:35 WBC 4.5 L RBC 3.53 L Hgb 9.6 L Hct 30.5 L MCV 86.4 MCH 27.2 MCHC 31.5 L RDW 15.7 H Plt Count 163 MPV 9.3 Neut # (Auto) 3.1 Lymph # (Auto) 0.7 L Smyth # (Auto) 0.4 Eos # (Auto) 0.2 Baso # (Auto) 0.1 Absolute Nucleated RBC 0.00 Nucleated RBC % 0.0 Sodium 138 Potassium 5.1 H Chloride 104 Carbon Dioxide 24 Anion Gap 10.0 BUN 51 H Creatinine 1.4 H Estimated GFR (MDRD) 50 L Glucose 107 H Calcium 9.2 Total Bilirubin 0.5 AST 21 ALT 26 Alkaline Phosphatase 99 Total Protein 7.4 Albumin 3.9 Globulin 3.5 Albumin/Globulin Ratio 1.1 Lipase 32 PD Medical Decision Making - ED course Complexity details: considered differential (The patient has had intermittent lightheadedness with feeling foggy thinking and perhaps near syncope but not any fainting per se. He denies loss of vision or any localized weakness. No chest pain with it. He has noticed symptoms largely with walking or standing up.), d/w patient Reviewed Lab Results: He had outpatient blood tests which were done through a private clinic and are not accessible or resulted as yet. He did have a head CT that was without any acute intracranial process. He had a carotid Dopplers which showed occlusion of the right internal carotid artery and a 50% blockage of the left. Referred to the ER directly from imaging with those results. The patient's symptoms do not sound like focal neurologic symptoms. He has [place] sense of lightheadedness and foggy thinking. Consideration would be for postural hypotension with than an effect on diminished flow through the limited carotid arteries. At this point would not clear if the blockage of the right ICA he is shorter- term or has been slow developing. We would want to see if they hours good circulation collaterally through the [place] and subsequently to the higher brain. We can do a CT angio of the head and neck. If this is showing adequate flow at this point, I would get in touch with his vascular surgeon at [facility] to discuss the carotid stenoses if there is any change in acute intervention. Otherwise consider postural lightheadedness with possible mild hypotension. He had had some increase in blood pressure medicines a few weeks ago. He states his blood pressure at home is typically 130s but recently had been down even 110s. Consideration would be relative hypotension even though its not particularly low but may be relatively low for his need for perfusion through his stenotic areas. Might consider lowering his blood pressure medicine to allow for a slightly higher pressure. Departure - Departure Clinical Impression: Postural lightheadedness, Carotid stenosis Condition: Stable Record reviewed to determine appropriate education?: Yes
[2022-07-04] MEDS ORDERED: SODIUM CHLORIDE 0.9% 1,000 ML IV STA (17:22)
[2022-07-04] MEDS ORDERED: iohexoL-300 100 ML VIAL ONE (17:42)
[2022-07-04 18:11] LABS: BASOPHILS # (AUTO) 0.1 10^3/uL (0.0-0.1); BASOPHILS % (AUTO) 1.3 %; EOSINOPHILS # (AUTO) 0.2 10^3/uL (0.0-0.7); EOSINOPHILS % (AUTO) 3.3 %; HCT - HEMATOCRIT 30.5 % (42.0-52.0); HGB - HEMOGLOBIN 9.6 g/dL (14.0-18.0); LYMPHOCYTES # (AUTO) 0.7 10^3/uL (1.5-3.5); LYMPHOCYTES % (AUTO) 16.5 %; MEAN CORPUSCULAR HEMOGLOBIN 27.2 pg (27.0-31.0); MEAN CORPUSCULAR HGB CONC 31.5 g/dL (32.0-36.0); MEAN CORPUSCULAR VOLUME 86.4 fL (80.0-94.0); MEAN PLATELET VOLUME 9.3 fL (7.4-11.4); MONOCYTES # (AUTO) 0.4 10^3/uL (0.0-1.0); MONOCYTES % (AUTO) 9.8 %; NEUTROPHILS # (AUTO) 3.1 10^3/uL (1.5-6.6); NEUTROPHILS % (AUTO) 68.7 %; PLT - PLATELET COUNT 163 10^3/uL (130-450); RED BLOOD COUNT 3.53 10^6/uL (4.70-6.10); RED CELL DISTRIBUTION WIDTH 15.7 % (12.0-15.0); WHITE BLOOD COUNT 4.5 x10^3/uL (4.8-10.8)
[2022-07-04 18:18] LABS: ALBUMIN 3.9 g/dL (3.2-5.5); ALBUMIN/GLOBULIN RATIO 1.1 (1.0-2.2); BILIRUBIN,TOTAL 0.5 mg/dL (0.2-1.0); CALCIUM 9.2 mg/dL (8.5-10.3); CREATININE 1.4 mg/dL (0.6-1.2); POTASSIUM 5.1 mmol/L (3.5-5.0); TOTAL PROTEIN 7.4 g/dL (6.7-8.2)
--- NOTE | 2022-07-04 19:23 | CT Report ---
PROCEDURE: ANGIO HEAD W/WO INDICATIONS: L sided facial droop CONTRAST: 80mL Omni 300 TECHNIQUE: Precontrast 4.5 mm thick angled axial sections acquired from the foramen magnum to the vertex. Afte r the administration of intravenous contrast, 1 mm thick sections acquired through the [place]. Postcontrast 4.5 mm thick sections then re-acquired from the foramen magnum to the vertex. 3-di mensional ouqnouv-vlgdmimhf-ethjsgjdkw (MIP) and/or volume rendering reformats were acquired of the c entral intracranial vasculature. For radiation dose reduction, the following was used: automated ex posure control, adjustment of mA and/or kV according to patient size. COMPARISON: None FINDINGS: Image quality: Excellent. Anterior circulation right internal carotid artery is occluded. Reconstituted flow within the distal cavernous and supraclinoid internal carotid artery. High-grade stenosis within the right supraclinoid internal carotid artery. The flow within the paired anterior cerebral arteries is normal and symmetr ic. The flow within the middle cerebral arteries is normal and symmetric. The anterior communicatin g artery is seen. No aneurysms are seen. Posterior circulation: Visualized portions of the vertebral arteries demonstrate normal caliber, and join to form a normal appearing basilar artery. Near origin of the left posterior cerebral ar riley. Flow within the posterior cerebral arteries is normal and symmetric. No aneurysms are seen. CSF spaces: Ventricles are normal in size and shape. Basal cisterns are patent. No extra-axial flu id collections. Brain: No midline shift. No intracranial bleeds or masses. Lal-white matter interface appears int act. Skull and face: Calvarium and facial bones appear intact, without suspicious lesions. Sinuses: Visualized sinuses and mastoids are clear. IMPRESSION: 1. Occluded right internal carotid artery. 2. Otherwise negative CT angiography of the head. Reviewed by: Candace Brennan MD on 07/04/2022 7:21 PM PST Approved by: Candace Brennan MD on 07/04/2022 7:21 PM PST Station ID: [id number]
--- NOTE | 2022-07-04 19:26 | CT Report ---
PROCEDURE: ANGIO NECK W INDICATIONS: L sided facial droop, L neck pain CONTRAST: 80mL Omni 300 TECHNIQUE: After the administration of intravenous contrast, 1.5 mm axial sections acquired from the aortic arch to the [place]. Coronal 3-D maximum intensity projection (MIP) and/or volume rendering ref ormats were then performed. For radiation dose reduction, the following was used: automated exposur e control, adjustment of mA and/or kV according to patient size. COMPARISON: None. FINDINGS: Image quality: Excellent. Carotid system: The great vessels demonstrate a conventional anatomy as they arise from the aortic a rch. The origins of the common carotid arteries appear patent. The common carotid arteries demonstr ate normal calibers and courses. There is mild diffuse stenosis of the bilateral common carotid arter ies. Superimposed moderate stenosis of the distal right common carotid artery. Right external carotid artery is patent. Right internal carotid artery is occluded. Left external carotid artery is patent. Left internal carotid artery demonstrates a 50% stenosis proximal, and is otherwise patent. Posterior circulation: Mild calcific origin stenosis of the right vertebral artery. Right vertebral a rtery is otherwise patent. Left vertebral artery is occluded proximally and in its midportion, and de monstrates reconstituted flow distally. Soft tissues: Visualized neck soft tissues demonstrate no suspicious abnormalities. The thyroid is normal in size and there are no incidental findings. Severe apical predominant emphysema. Bones: No suspicious bony lesions. Visualized cervical spine appears normally aligned. IMPRESSION: 1. Occluded right internal carotid artery. 2. Roughly 50% left internal carotid artery stenosis. 3. Occluded left vertebral artery with reconstituted flow distally. 4. Mild origin stenosis of the right vertebral artery. The estimate of stenosis included in the report of the imaging study was calculated using the NASCET method CLINICAL RECOMMENDATION STATEMENTS: In patients <35 years with an ITN detected on CT, MRI, or extrathyroidal ultrasound, the Committee re commends further evaluation with dedicated thyroid ultrasound if the nodule is "e1 cm and has no susp icious imaging features, and if the patient has normal life expectancy. In patients "e35 years with an ITN detected on CT, MRI, or extrathyroidal ultrasound, the Committee r ecommends further evaluation with dedicated thyroid ultrasound if the nodule is "e1.5 cm and has no s uspicious imaging features, and if the patient has normal life expectancy. (ACR, 2014) Reviewed by: Candace Brennan MD on 07/04/2022 7:25 PM PST Approved by: Candace Brennan MD on 07/04/2022 7:25 PM PST Station ID: [id number]
[2022-07-04] MEDS ORDERED: iohexoL-300 100 ML VIAL IVP ONE (21:35)
[2022-07-05 00:01] VITALS: BP 156/60
== END 2022-07-05 00:02 | disposition home or self-care (01) ==
LOC: ED 16:34
DX: I65.21 Occlusion and stenosis of right carotid artery (principal); I10 Essential (primary) hypertension; E11.9 Type 2 diabetes mellitus without complications; F17.210 Nicotine dependence, cigarettes, uncomplicated
CPT/HCPCS: 36415; 70496; 70498; 80053; 83690; 85025; 96360; 96361; 99284; Q9967

== ENCOUNTER 2022-08-29 13:25 | Outpatient (CLI) | payer MEDICARE ==
[2022-08-29] MEDS ORDERED: ALBUTEROL 1 PUFF INH STA (16:05)
== END 2022-08-29 13:26 | disposition home or self-care (01) ==
LOC: RT 13:25
PROVIDERS: ATTEND Nurse Practitioner Family
DX: J44.9 Chronic obstructive pulmonary disease, unspecified (principal)
CPT/HCPCS: 94060

== ENCOUNTER 2022-12-18 07:26 | Day surgery (SDC) | payer MEDICARE ==
[2022-12-18] MEDS ORDERED: LACTATED RINGERS 1,000 ML IV ONE (07:30)
--- NOTE | 2022-12-18 08:13 | ANESTHESIA ---
Pre-Anesthesia VS, & Labs - Diagnosis screening, pos cologuard - Procedure colonoscopy Vital Signs: Temp Pulse Resp BP Pulse Ox O2 Flow Rate 36.0 C L 82 16 155/65 H 98 0 12/18/22 07:47 12/18/22 07:47 12/18/22 07:47 12/18/22 07:47 12/18/22 07:47 12/18/22 07:47 Height: 5 ft 4 in Weight (kg): 58 kg Body Mass Index: 21.9 BMI Classification: Normal - NPO >8 hours - Lab Results Lab results reviewed: Yes Home Medications and Allergies Home Medications: Ambulatory Orders Ascorbic Acid [Vitamin C] 250 mg PO DAILY 12/17/22 Aspirin [Trego Aspirin EC] 81 mg PO DAILY 12/17/22 Cholecalciferol (Vitamin D3) [Vitamin D3] 125 mg PO DAILY 12/17/22 Cyanocobalamin (Vitamin B-12) [Vitamin B-12] 1,000 mcg PO DAILY 12/17/22 Cyclobenzaprine [Flexeril] 10 mg PO HS 12/17/22 Diclofenac Sodium [Voltaren Arthritis Pain] 20 gm TP DAILY PRN 12/17/22 Fluticasone Propion/Salmeterol [Fluticasone-Salmeterol 250-50] 1 each IH BID 12/17/22 Furosemide [Lasix] 20 mg PO DAILY 12/17/22 Iron Fumarate/Vit C/Vit B12/FA [Hematogen Forte Softgel] 80 each PO DAILY 12/17/22 Losartan [Cozaar] 40 mg PO BID 12/17/22 Magnesium Citrate and Oxide [Magnesium] 250 mg PO DAILY 12/17/22 Melatonin [Melatoninmax] 10 mg PO HS 12/17/22 Metoprolol Succinate 100 mg PO DAILY 12/17/22 Nitroglycerin [Nitrostat] 0.4 mg SL Q5MIN PRN 12/17/22 Tamsulosin [Flomax] 0.8 mg PO ONCE 12/17/22 Tiotropium [place] [Spiriva Respimat] 2.5 gm IH DAILY 12/17/22 oxyCODONE [Roxicodone] 5 mg PO DAILY PRN 06/14/15 Multivitamin 1 tab PO DAILY 01/19/21 [place]-3/Dha/Epa/Fish Oil [Fish Oil 1,000 mg Softgel] 1 cap PO DAILY 01/19/21 Aspirin [Aspirin EC] 81 mg PO DAILY 11/16/21 Atorvastatin Calcium [Lipitor] 80 mg PO DAILY 11/16/21 Pantoprazole [Protonix] 20 mg PO DAILY 11/16/21 Sennosides [Senna] 2 tab BID 11/16/21 Ascorbic Acid [Vitamin C] 250 mg PO DAILY 12/17/22 Aspirin [Trego Aspirin EC] 81 mg PO DAILY 12/17/22 Cholecalciferol (Vitamin D3) [Vitamin D3] 125 mg PO DAILY 12/17/22 Cyanocobalamin (Vitamin B-12) [Vitamin B-12] 1,000 mcg PO DAILY 12/17/22 Cyclobenzaprine [Flexeril] 10 mg PO HS 12/17/22 Diclofenac Sodium [Voltaren Arthritis Pain] 20 gm TP DAILY PRN 12/17/22 Fluticasone Propion/Salmeterol [Fluticasone-Salmeterol 250-50] 1 each IH BID 12/17/22 Furosemide [Lasix] 20 mg PO DAILY 12/17/22 [place] Fumarate/Vit C/Vit B12/FA [Hematogen Forte Softgel] 80 each PO DAILY 12/17/22 Losartan [Cozaar] 40 mg PO BID 12/17/22 Magnesium Citrate and Oxide [Magnesium] 250 mg PO DAILY 12/17/22 Melatonin [Melatoninmax] 10 mg PO HS 12/17/22 Metoprolol Succinate 100 mg PO DAILY 12/17/22 Nitroglycerin [Nitrostat] 0.4 mg SL Q5MIN PRN 12/17/22 Tamsulosin [Flomax] 0.8 mg PO ONCE 12/17/22 Tiotropium [place] [Spiriva Respimat] 2.5 gm IH DAILY 12/17/22 Allergies/Adverse Reactions: Allergies Allergy/AdvReac Type Severity Reaction Status Date / Time BLAS Inhibitors Allergy Severe Edema Verified 07/04/22 16:53 hydrochlorothiazide Allergy Severe kidney Verified 07/04/22 16:53 failure hydrocodone bitartrate * Allergy Intermediate Itching Verified 07/04/22 16:53 [From Vicodin] codeine AdvReac Severe Respiratory Verified 07/04/22 16:53 Anes History & Medical History - Anesthetic History Anesthesia Complications: reports: No previous complications Family history of Anesthesia Complications: Denies Family history of Malignant Hyperthermia: Denies - Medical History Cardiovascular: reports: Hypertension, High cholesterol, Coronary artery disease, Peripheral Vascular Disease, [place], Other Pulmonary: reports: COPD Gastrointestinal: reports: GERD, Pancreatitis, Cirrhosis Urinary: reports: Other Neuro: reports: None Musculoskeletal: reports: Fatigue, Chronic back pain, Other Endocrine/Autoimmune: reports: Type 2 diabetes Blood Disorders: reports: None Skin: reports: Other Smoking Status: Current every day smoker (1.5 packs per day for 50 years) Psychosocial: reports: No issues indicated - Surgical History General: reports: Colonoscopy Eyes Ears Nose Throat (EENT): reports: Cataracts, Tonsil/Adenoidectomy Orthopedic: reports: Hip replacement Exam General: Alert, Oriented x3, Cooperative Dental: WNL Mouth Openin Fingerbreadth Neck Mobility: Normal Mallampati classification: II Thyromental Distance: 4-6 cm Respiratory: Lungs clear Cardiovascular: Regular rate Plan Anesthesia Type: General, MAC Consent for Procedure(s) Verified and Reviewed: Yes Code Status: Attempt Resuscitation ASA classification: 3-Severe systemic disease Is this case an emergency?: No
[2022-12-18] MEDS ORDERED: PROPOFOL 500 MG/50 ML 500 MG/50 ML VIAL ONE (08:34)
[2022-12-18] MEDS ORDERED: LACTATED RINGERS 700 ML IV ONE (09:18)
[2022-12-18 09:29] VITALS: O2SAT 100
[2022-12-18 09:54] VITALS: BP 132/55
--- NOTE | 2022-12-18 13:19 | ANESTHESIA POST OP EVALUATION ---
Anesthesia Post Eval - Post Anesthesia Eval Vitals: Last Vital Signs Temp 36.2 C L 12/18/22 09:35 Pulse 73 12/18/22 09:35 Resp 16 12/18/22 09:35 BP 132/55 H 12/18/22 09:35 Pulse Ox 100 12/18/22 09:35 O2 Flow Rate 0 12/18/22 07:47 CV Function Including HR & BP: Stable Pain Control: Satisfactory Nausea & Vomiting: Negative Mental Status: Baseline Respiratory Status: Airway Patent Hydration Status: Satisfactory Anesthesia Complications: None
== END 2022-12-18 07:27 | disposition home or self-care (01) ==
LOC: SDS 07:26
PROVIDERS: ATTEND Surgery
PROC: 0DBH8ZX Excision of Cecum, Via Natural or Artificial Opening Endoscopic, Diagnostic (ICD-10-PCS; principal; 2022-12-18 08:30)
DX: Z12.11 Encounter for screening for malignant neoplasm of colon (principal); R19.5 Other fecal abnormalities; D12.0 Benign neoplasm of cecum; K64.1 Second degree hemorrhoids; K57.30 Diverticulosis of large intestine without perforation or abscess without bleeding; F17.200 Nicotine dependence, unspecified, uncomplicated; I10 Essential (primary) hypertension; J44.9 Chronic obstructive pulmonary disease, unspecified; E11.9 Type 2 diabetes mellitus without complications
CPT/HCPCS: 45380; J7120

== ENCOUNTER 2023-04-11 06:57 | Outpatient (CLI) | payer MEDICARE ==
--- NOTE | 2023-04-11 17:45 | Ultrasound Report ---
PROCEDURE: Abdomen Complete INDICATIONS: BILARY COLIC TECHNIQUE: Real-time scanning was performed of the abdominal and retroperitoneal organs, with image documentatio n. COMPARISON: CT abdomen 06/07/2022 FINDINGS: Liver: Liver is normal in size and nodular in contour. Gallbladder: Echogenic focus within the gallbladder neck measuring 1.2 cm is present. Wall thickness measures 3 mm. Biliary ducts: Intrahepatic bile ducts are non-dilated. Extrahepatic bile duct caliber measures 7 m m. Normal is 6-7 mm or less in diameter, or 10 mm or less post-cholecystectomy. Pancreas: Visualized portions of the pancreas are sonographically normal. Spleen: Spleen is normal in size and homogeneous in echotexture. Kidneys: Kidneys are normal in size and echotexture. Right kidney measures 11.4 cm long; left kidne y measures cm long. No hydronephrosis. There is a focus of increased echogenicity within the left ki dney measuring 5 mm. Focus of decreased echogenicity is present measuring 1.1 cm. Aorta: Visualized aorta is normal in caliber at less than 3 cm. Iliacs: Proximal common iliac arteries are normal in caliber at less than 2.5 cm. IVC: Intrahepatic inferior vena cava is patent. Miscellaneous: No free abdominal fluid. IMPRESSION: Nonobstructing left renal calculus. Simple left renal cyst. Likely nonmobile gallstone in the gallbladder neck. Reviewed by: Candice Nieto MD on 04/11/2023 5:44 PM PST Approved by: Candice Nieto MD on 04/11/2023 5:44 PM PST Station ID: [id number]
== END 2023-04-11 06:58 | disposition home or self-care (01) ==
LOC: DI 06:57
PROVIDERS: ATTEND Internal Medicine Transplant Hepatology
DX: K80.50 Calculus of bile duct without cholangitis or cholecystitis without obstruction (principal); N20.0 Calculus of kidney; N28.1 Cyst of kidney, acquired

== ENCOUNTER 2023-07-23 14:53 | Outpatient (CLI) | payer MEDICARE, OTHER ==
[2023-07-23 15:23] LABS: INR 1.1 (0.8-1.2); PT - PROTHROMBIN TIME 12.5 secs (9.9-12.6)
[2023-07-23 15:40] LABS: ALBUMIN/GLOBULIN RATIO 1.5 (1.0-2.2); BILIRUBIN,TOTAL 0.3 mg/dL (0.2-1.0); CREATININE 1.5 mg/dL (0.6-1.3); TOTAL PROTEIN 6.7 g/dL (6.4-8.9)
== END 2023-07-23 14:54 | disposition home or self-care (01) ==
LOC: LAB 14:53
PROVIDERS: ATTEND Internal Medicine Transplant Hepatology
DX: K70.30 Alcoholic cirrhosis of liver without ascites (principal)
CPT/HCPCS: 36415; 80053; 85610

== ENCOUNTER 2023-07-23 15:45 | Outpatient (CLI) | payer OTHER, MEDICARE ==
[~2023-07-23 15:45] MED LIST changes: -GADOBUTROL 15 MMOL/15 ML VIAL ONE; +iohexoL-300 100 ML VIAL ONE
--- NOTE | 2023-07-23 17:01 | CT Report ---
PROCEDURE: Abdomen W/WO INDICATIONS: LIVER LESION CONTRAST: Omni 300 100ml TECHNIQUE: [address] scan of the liver was performed. Non-contrast and multiphasic contrast images were recorde d and evaluated at appropriate window settings. Reformats: coronal and sagittal. For radiation dose r eduction, the following was used: automated exposure control, adjustment of mA and/or kV according to patient size. COMPARISON: CT 06/07/2022 FINDINGS: Image quality: Diagnostic. Liver: Cirrhotic liver morphology. Liver lesion 1: Size: 0.8 cm. Location: Series 8, Image 11 Arterial Enhancement: Present. Non-peripheral "washout": Absent. Enhancing "capsule": Absent. Growth: None. Ancillary features: None. Tumor in vein: None. LI-RADS: 3 Liver lesion 2: Size: 0.8 cm. Location: Series 14, Image 14 Arterial Enhancement: Absent. Non-peripheral "washout": Present. Enhancing "capsule": Absent. Growth: Negative Ancillary features: None. Tumor in vein: None. LI-RADS: 3 OTHER: Lower chest: Unremarkable. Gallbladder and biliary tree: No radiopaque stones or wall thickening. No biliary dilation. Spleen: No splenomegaly. Pancreas: No pancreatic ductal dilation. Adrenals: No adrenal nodule. Kidneys and ureters: No hydronephrosis. No renal cystic lesion which requires follow up. No solid mas s. Stomach, bowel and peritoneum: No bowel distension. No pathologic free fluid. Lymph nodes: No central or retroperitoneal adenopathy. Vessels: No infrarenal aortic aneurysm. Bones: No aggressive osseous abnormality. Other: No significant ventral hernia. IMPRESSION: Cirrhosis. Stable liver lesions, LI-RADS 3. Reviewed by: Shawn Higuera MD on 07/23/2023 5:00 PM PDT Approved by: Shawn Higuera MD on 07/23/2023 5:00 PM PDT Station ID: [id number]
[2023-07-23] MEDS: iohexoL-300 100 ML VIAL IVP ONE (21:03)
== END 2023-07-23 15:46 | disposition home or self-care (01) ==
LOC: DI 15:45
PROVIDERS: ATTEND Internal Medicine Transplant Hepatology
DX: K70.30 Alcoholic cirrhosis of liver without ascites (principal); K76.89 Other specified diseases of liver
CPT/HCPCS: 74170; Q9967

== ENCOUNTER 2023-08-19 13:20 | Outpatient (CLI) | payer MEDICARE, OTHER ==
[2023-08-19] MEDS: ALBUTEROL 1 PUFF INH STA (17:32)
== END 2023-08-19 13:21 | disposition home or self-care (01) ==
LOC: RT 13:20
PROVIDERS: ATTEND Nurse Practitioner Adult Health
DX: R91.1 Solitary pulmonary nodule (principal)
CPT/HCPCS: 94060; 94727; 94729

== ENCOUNTER 2024-09-29 10:24 | Inpatient (IN) ==
[2024-09-29] MEDS: LACTATED RINGERS 1,000 ML IV PRN (11:09)
--- NOTE | 2024-09-29 12:29 | ANESTHESIA PROCEDURE NOTE ---
Pre-Anesthesia VS, & Labs Diagnosis Surgical Diagnosis:: Hx Polyps Procedure Procedure: Colonoscopy Vitals Vital Signs: Temp Pulse Resp BP Pulse Ox 36.5 C 78 16 157/72 H 98 09/29/24 10:40 09/29/24 10:40 09/29/24 10:40 09/29/24 10:40 09/29/24 10:40 Height (in): 5 ft 4 in Weight (kg): 59 kg Body Mass Index: 22.3 BMI Classification: Normal NPO Last Fluid Intake: >2hr Last Food Intake: >8hr Meds/Allgy Home Medications Ambulatory Orders Medication Instructions Recorded Confirmed oxycodone 5 mg tablet 5 mg PO TID PRN Pain 5-7 02/1709/29/24 multivitamin 1 tab PO DAILY 01/19/2109/03 atorvastatin 80 mg tablet (Lipitor) 80 mg PO DAILY 09/29/24 pantoprazole 40 mg tablet,delayed 20 mg PO DAILY 11/1609/29/24 release sennosides 8.6 mg capsule (senna) 17.2 mg PO BID 11/1609/29/24 ascorbic acid (vitamin C) 250 mg 500 mg PO DAILY 12/1709/29/24 tablet (Vitamin C) aspirin 81 mg tablet,delayed 81 mg PO DAILY 12/17/22 0 09/29/24 release (Taliaferro Aspirin) cyanocobalamin (vitamin B-12) 1,000 mcg PO DAILY 12/1709/23/24 1,000 mcg capsule cyclobenzaprine 10 mg tablet 10 mg PO HS 12/17/2209/03 diclofenac sodium 1 % topical gel 1 g TP QID PRN Pain 1-4 12/17/22 09/29/24 (Voltaren Arthritis Pain) fluticasone 250 mcg-salmeterol 50 1 ea IH BID 12/17/22 09/29/24 mcg/dose blistr powdr for inhalation furosemide 20 mg tablet 20 mg PO DAILY PRN FLUID RET ENTION 12/17/22 09/23/24 Held on 09/23/24. Instructions: Per Patient magnesium citrate,mag oxide 250 mg 250 mg PO DAILY 09/29/24 capsule melatonin 10 mg chewable tablet 10 mg PO HS 12/17/22 0 09/29/24 (MelatoninMax) metoprolol succinate 100 mg 100 mg PO DAILY 12/17/22 0 09/29/24 tablet,extended release 24 hr tamsulosin 0.4 mg capsule 0.8 mg PO DAILY 12/17/22 tiotropium bromide 2.5 2 puff inhalation DAILY 12/0309/23/24 mcg/actuation mist for inhalation (Spiriva Respimat) amlodipine 5 mg tablet 10 mg PO DAILY 09/27/2309/03 ferrous sulfate 325 mg (65 mg 325 mg PO DAILY 09/27/23 09/29/24 iron) tablet naproxen 250 mg tablet 250 mg PO DAILY PRN Pain 1-4 09/27/23 09/29/24 cholecalciferol (vitamin D3) 125 125 mcg PO DAILY 09/0309/29/24 mcg (5,000 unit) tablet (Vitamin D3) gabapentin 300 mg capsule 300 mg PO QPM 09/23/2409/29 guaifenesin 400 mg tablet 400 mg PO Q4H PRN congestion 09/23/24 09/29/24 valsartan 40 mg tablet 40 mg PO BID 09/23/24 Allergies Allergies Allergy/AdvReac Type Severity Reaction Status Date / Time BLAS Inhibitors Allergy Severe Edema Verified 09/29/24 10:47 hydrochlorothiazide Allergy Severe kidney Verified 09/29/24 10:47 failure hydrocodone bitartrate * Allergy Intermediate Itching Verified 09/29/24 10:47 (From Vicodin) codeine AdvReac Severe Respiratory Verified 09/29/24 10:47 PFS Active Problems All Active Problems Diabetes type 2 (Acute) Alcoholic cirrhosis of liver (Acute) PVD (peripheral vascular disease) (Acute) Atrial fibrillation (Acute) Hyperlipidemia (Acute) Hypertension (Acute) Anemia (Acute) Chronic back pain (Acute) CAD (coronary artery disease) (Acute) COPD (chronic obstructive pulmonary disease) (Acute) Bursitis, prepatellar, left (Acute) Constipation (Acute) BLAS inhibitor-aggravated angioedema (Acute) Medical History Medical History History of adenomatous polyp of colon (~2022) sessile, >1cm History of [place] (myocardial infarction) 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 Mother No problems noted. Brother No problems noted. Social History Social History Smoking Status: Former smoker If you are a former smoker, when did you quit? (Date/Year): APR 2023 Number of Years Smoked: 50 How many cigarettes a day do you smoke? (20 cigarettes=1 Pk): 30 Do you dip or chew tobacco?: No Patient requests smoking cessation consult: No Initiate information on smoking cessation: No Relationship: Level: Independent Do you feel safe in your home environment?: Yes Suffered physical, verbal, emotional, or financial abuse?: No History of Abuse: No Frequency: Daily POLST Patient has POLST: No Results EKG Results EKG Comparison: Reviewed EKG Echo Results Echo Results: Report reviewed (2019 ef 60-65) Anesthesia Exam (Expanded) Exam General: Alert and No acute distress Mouth Openin Fingerbreadth Neck Mobility: Normal Mallampati classification: II Thyromental Distance: 4-6 cm Exam Exam Vital Signs: Vital Signs x48h Temp Pulse Resp BP Pulse Ox 09/29/24 10:40 36.5 C 78 16 157/72 H 98 Plan Plan Anesthesia Type: Total IV Consent for Procedure(s) Verified and Reviewed: Yes Code Status: Attempt Resuscitation ASA Classification ASA classification: 3-Severe systemic disease Is this case an emergency?: No
[2024-09-29] MEDS ORDERED: PROPOFOL 500 MG/50 ML 500 MG/50 ML VIAL ONE (12:30)
[2024-09-29] MEDS ORDERED: LIDOCAINE-MPF 2% 5 ML VIAL ONE (12:30)
--- NOTE | 2024-09-29 13:09 | ANESTHESIA PROCEDURE NOTE ---
Pre-Anesthesia VS, & Labs Diagnosis Surgical Diagnosis:: Hx Polyps Procedure Procedure: colonoscopy Vitals Vital Signs: Temp Pulse Resp BP Pulse Ox 36.5 C 78 16 157/72 H 98 09/29/24 10:40 09/29/24 10:40 09/29/24 10:40 09/29/24 10:40 09/29/24 10:40 NPO NPO: Other (7am) Meds/Allgy Home Medications Ambulatory Orders Medication Instructions Recorded Confirmed oxycodone 5 mg tablet 5 mg PO TID PRN Pain 5-7 02/1709/29/24 multivitamin 1 tab PO DAILY 01/19/2109/03 atorvastatin 80 mg tablet (Lipitor) 80 mg PO DAILY 09/29/24 pantoprazole 40 mg tablet,delayed 20 mg PO DAILY 11/1609/29/24 release sennosides 8.6 mg capsule (senna) 17.2 mg PO BID 11/1609/29/24 ascorbic acid (vitamin C) 250 mg 500 mg PO DAILY 12/1709/29/24 tablet (Vitamin C) aspirin 81 mg tablet,delayed 81 mg PO DAILY 12/17/22 0 09/29/24 release (Graingers Aspirin) cyanocobalamin (vitamin B-12) 1,000 mcg PO DAILY 12/1709/23/24 1,000 mcg capsule cyclobenzaprine 10 mg tablet 10 mg PO HS 12/17/2209/03 diclofenac sodium 1 % topical gel 1 g TP QID PRN Pain 1-4 12/17/22 09/29/24 (Voltaren Arthritis Pain) fluticasone 250 mcg-salmeterol 50 1 ea IH BID 12/17/22 09/29/24 mcg/dose blistr powdr for inhalation furosemide 20 mg tablet 20 mg PO DAILY PRN FLUID RET ENTION 12/17/22 09/23/24 Held on 09/23/24. Instructions: Per Patient magnesium citrate,mag oxide 250 mg 250 mg PO DAILY 09/29/24 capsule melatonin 10 mg chewable tablet 10 mg PO HS 12/17/22 0 09/29/24 (MelatoninMax) metoprolol succinate 100 mg 100 mg PO DAILY 12/17/22 0 09/29/24 tablet,extended release 24 hr tamsulosin 0.4 mg capsule 0.8 mg PO DAILY 12/17/22 tiotropium bromide 2.5 2 puff inhalation DAILY 12/0309/23/24 mcg/actuation mist for inhalation (Spiriva Respimat) amlodipine 5 mg tablet 10 mg PO DAILY 09/27/2309/03 ferrous sulfate 325 mg (65 mg 325 mg PO DAILY 09/27/23 09/29/24 iron) tablet naproxen 250 mg tablet 250 mg PO DAILY PRN Pain 1-4 09/27/23 09/29/24 cholecalciferol (vitamin D3) 125 125 mcg PO DAILY 09/0309/29/24 mcg (5,000 unit) tablet (Vitamin D3) gabapentin 300 mg capsule 300 mg PO QPM 09/23/2409/29 guaifenesin 400 mg tablet 400 mg PO Q4H PRN congestion 09/23/24 09/29/24 valsartan 40 mg tablet 40 mg PO BID 09/23/24 Allergies Allergies Allergy/AdvReac Type Severity Reaction Status Date / Time BLAS Inhibitors Allergy Severe Edema Verified 09/29/24 10:47 hydrochlorothiazide Allergy Severe kidney Verified 09/29/24 10:47 failure hydrocodone bitartrate * Allergy Intermediate Itching Verified 09/29/24 10:47 (From Vicodin) codeine AdvReac Severe Respiratory Verified 09/29/24 10:47 PFSH Active Problems All Active Problems Diabetes type 2 (Acute) Alcoholic cirrhosis of liver (Acute) PVD (peripheral vascular disease) (Acute) Atrial fibrillation (Acute) Hyperlipidemia (Acute) Hypertension (Acute) Anemia (Acute) Chronic back pain (Acute) CAD (coronary artery disease) (Acute) COPD (chronic obstructive pulmonary disease) (Acute) Bursitis, prepatellar, left (Acute) Constipation (Acute) BLAS inhibitor-aggravated angioedema (Acute) Medical History Medical History History of adenomatous polyp of colon (~2022) sessile, >1cm History of [place] (myocardial infarction) 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 Mother No problems noted. Brother No problems noted. Social History Social History Smoking Status: Former smoker If you are a former smoker, when did you quit? (Date/Year): APR 2023 Number of Years Smoked: 50 How many cigarettes a day do you smoke? (20 cigarettes=1 Pk): 30 Do you dip or chew tobacco?: No Patient requests smoking cessation consult: No Initiate information on smoking cessation: No Relationship: Level: Independent Do you feel safe in your home environment?: Yes Suffered physical, verbal, emotional, or financial abuse?: No History of Abuse: No Frequency: Daily POLST Patient has POLST: No Anesthesia Exam (Expanded) Exam General: Alert, Oriented x3 and Cooperative Dental: WNL Mouth Opening: Greater than 4 Fingerbreadths Neck Mobility: Limited Mallampati classification: II Thyromental Distance: greater than 6 cm Respiratory: Lungs clear Cardiovascular: Regular rate Exam Exam Vital Signs: Vital Signs x48h Temp Pulse Resp BP Pulse Ox 09/29/24 10:40 36.5 C 78 16 157/72 H 98 Plan Plan Anesthesia Type: Total IV Consent for Procedure(s) Verified and Reviewed: Yes Code Status: Attempt Resuscitation ASA Classification ASA classification: 3-Severe systemic disease Is this case an emergency?: No
[2024-09-29] MEDS ORDERED: fentaNYL 100 MCG/2 ML VIAL ONE ×3 (13:12→17:37)
--- NOTE | 2024-09-29 13:16 | HISTORY & PHYSICAL EXAMINATION ---
History of Present Illness History of Present Illness HPI Comment/Other: 68M referred for surveillance colonoscopy. His last colonoscopy was in [address] Graham - he had a cecal sessile tubular adenoma that was >1cm, and thus due to repeat in 1-3 years. He denies blood in stool, changes in bowel habits, unintentional weight loss, abdominal pain, or FHX of colon cancer. He takes daily pantoprazole but says he has never had heartburn. He has a history of alcoholic cirrhosis which is currently compensated and he is in etoh remission since 2021, he follows with [facility] [place] for his cirrhosis and HCC screening; he had a normal EGD without varices in 2019, his 2022 RUQUS had no portal HTN. He has a history of malignancy carcinoid tumor of the lung, treated with radiation therapy within the past year. Colonoscopy Questionnaire In the last 30 days have you experienced these symptoms? 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 Mother No problems noted. Brother No problems noted. Social History Social History (Reviewed 09/29/24 @ 12:27 by CORNELIA Moreno Smoking Status: Former smoker If you are a former smoker, when did you quit? (Date/Year): APR 2023 Number of Years Smoked: 50 How many cigarettes a day do you smoke? (20 cigarettes=1 Pk): 30 Do you dip or chew tobacco?: No Patient requests smoking cessation consult: No Initiate information on smoking cessation: No Relationship: Level: Independent Do you feel safe in your home environment?: Yes Suffered physical, verbal, emotional, or financial abuse?: No History of Abuse: No Frequency: Daily POLST Patient has POLST: No Meds/Allgy Home Medications Ambulatory Orders Medication Instructions Recorded Confirmed oxycodone 5 mg tablet 5 mg PO TID PRN Pain 5-7 02/1709/29/24 multivitamin 1 tab PO DAILY 01/19/2109/03 atorvastatin 80 mg tablet (Lipitor) 80 mg PO DAILY 09/29/24 pantoprazole 40 mg tablet,delayed 20 mg PO DAILY 11/1609/29/24 release sennosides 8.6 mg capsule (senna) 17.2 mg PO BID 11/1609/29/24 ascorbic acid (vitamin C) 250 mg 500 mg PO DAILY 12/1709/29/24 tablet (Vitamin C) aspirin 81 mg tablet,delayed 81 mg PO DAILY 12/17/22 0 09/29/24 release (Dunstan Aspirin) cyanocobalamin (vitamin B-12) 1,000 mcg PO DAILY 12/1709/23/24 1,000 mcg capsule cyclobenzaprine 10 mg tablet 10 mg PO HS 12/17/2209/03 diclofenac sodium 1 % topical gel 1 g TP QID PRN Pain 1-4 12/17/22 09/29/24 (Voltaren Arthritis Pain) fluticasone 250 mcg-salmeterol 50 1 ea IH BID 12/17/22 09/29/24 mcg/dose blistr powdr for inhalation furosemide 20 mg tablet 20 mg PO DAILY PRN FLUID RET ENTION 12/17/22 09/23/24 Held on 09/23/24. Instructions: Per Patient magnesium citrate,mag oxide 250 mg 250 mg PO DAILY 09/29/24 capsule melatonin 10 mg chewable tablet 10 mg PO HS 12/17/22 0 09/29/24 (MelatoninMax) metoprolol succinate 100 mg 100 mg PO DAILY 12/17/22 0 09/29/24 tablet,extended release 24 hr tamsulosin 0.4 mg capsule 0.8 mg PO DAILY 12/17/22 tiotropium bromide 2.5 2 puff inhalation DAILY 12/0309/23/24 mcg/actuation mist for inhalation (Spiriva Respimat) amlodipine 5 mg tablet 10 mg PO DAILY 09/27/2309/03 ferrous sulfate 325 mg (65 mg 325 mg PO DAILY 09/27/23 09/29/24 iron) tablet naproxen 250 mg tablet 250 mg PO DAILY PRN Pain 1-4 09/27/23 09/29/24 cholecalciferol (vitamin D3) 125 125 mcg PO DAILY 09/0309/29/24 mcg (5,000 unit) tablet (Vitamin D3) gabapentin 300 mg capsule 300 mg PO QPM 09/23/2409/29 guaifenesin 400 mg tablet 400 mg PO Q4H PRN congestion 09/23/24 09/29/24 valsartan 40 mg tablet 40 mg PO BID 09/23/24 Allergies Allergies Allergy/AdvReac Type Severity Reaction Status Date / Time BLAS Inhibitors Allergy Severe Edema Verified 09/29/24 10:47 hydrochlorothiazide Allergy Severe kidney Verified 09/29/24 10:47 failure hydrocodone bitartrate * Allergy Intermediate Itching Verified 09/29/24 10:47 (From Vicodin) codeine AdvReac Severe Respiratory Verified 09/29/24 10:47 Review of Systems Status of ROS: 10 or more systems reviewed and unremarkable except as noted in history and below Exam Exam Vital Signs: Vital Signs x48h Temp Pulse Resp BP Pulse Ox 09/29/24 10:40 36.5 C 78 16 157/72 H 98 Constitutional normal general appearance and no apparent distress HENMT normocephalic Eyes conjunctivae normal and normal visual lim by confrontation Neck/C-Spine visual inspection normal Respiratory normal respiratory effort Cardiovascular normal heart rate noted Gastrointestinal abdomen normal to inspection Extremities normal to inspection Neurology no movement abnormality noted Psychiatry mental status grossly normal and oriented x3 Skin skin color normal Impression/Plan Problem List (1) History of adenomatous polyp of colon: Plan: 68M with history of >1cm sessile tubular adenoma of the cecum in 2022, due for surveillance colonoscopy. No alarm sx or FHX relevant to colon cancer. The indications, alternatives, and risks of endoscopy, including but not limited to perforation requiring operative repair, bleeding requiring further intervention, and missed lesions, were discussed. The required conscious sedation was discussed along with its risks (NH, PE, CVA, ). The patient wishes to proceed with endoscopy. Preprocedural instructions were reviewed with the patient in the clinic. - schedule for screening colonoscopy - Endoscopy report will be provided to patient on day of procedure. [facility] ([facility]) will call patient with results of any biopsies 1-2 weeks after procedure. Asia Naranjo DO, [facility] General Surgeon, [place]
[2024-09-29] MEDS ORDERED: MIDAZOLAM 2 MG/2 ML VIAL ONE (13:34)
[2024-09-29] MEDS ORDERED: PROPOFOL 200 MG/20 ML VIAL IVP ONE ×2 (13:47→14:31)
[2024-09-29] MEDS ORDERED: NALOXONE 0.4 MG/ML VIAL ONE (13:52)
[2024-09-29] MEDS ORDERED: ROCURONIUM 50 MG/5 ML VIAL ONE ×2 (14:30→15:05)
[2024-09-29] MEDS ORDERED: BUPIVACAINE 0.25% PF 30 ML VIAL ONE ×2 (14:38)
[2024-09-29] MEDS ORDERED: HYDROmorphone 1 MG/ML CARPUJECT ONE (15:05)
[2024-09-29] MEDS ORDERED: metroNIDAZOLE 500 MG/100 ML 500 MG/100 ML BAG ONE (15:10)
[2024-09-29 16:31] LABS: BASOPHILS % (AUTO) 0.4 %; EOSINOPHILS # (AUTO) 0.1 10^3/uL (0.0-0.7); EOSINOPHILS % (AUTO) 0.9 %; HCT - HEMATOCRIT 35.6 % (42.0-52.0); HGB - HEMOGLOBIN 11.4 g/dL (14.0-18.0); LYMPHOCYTES # (AUTO) 0.8 10^3/uL (1.5-3.5); LYMPHOCYTES % (AUTO) 10.9 %; MEAN CORPUSCULAR VOLUME 87.5 fL (80.0-94.0); MEAN PLATELET VOLUME 9.4 fL (7.4-11.4); MONOCYTES # (AUTO) 0.4 10^3/uL (0.0-1.0); NEUTROPHILS # (AUTO) 5.6 10^3/uL (1.5-6.6); NEUTROPHILS % (AUTO) 81.7 %; PLT - PLATELET COUNT 127 10^3/uL (130-450); RED BLOOD COUNT 4.07 10^6/uL (4.70-6.10); WHITE BLOOD COUNT 6.9 x10^3/uL (4.8-10.8)
[2024-09-29 16:37] LABS: INR 1.3 (0.8-1.2); PT - PROTHROMBIN TIME 14.7 secs (9.9-12.6)
[2024-09-29 16:52] LABS: ALBUMIN 3.3 g/dL (3.2-5.5); ALBUMIN/GLOBULIN RATIO 1.5 (1.0-2.2); BILIRUBIN,TOTAL 0.3 mg/dL (0.2-1.0); CALCIUM 8.1 mg/dL (8.5-10.3); CREATININE 1.5 mg/dL (0.6-1.3); POTASSIUM 4.8 mmol/L (3.5-4.5); TOTAL PROTEIN 5.5 g/dL (6.4-8.9)
[2024-09-29] MEDS ORDERED: ROPIVACAINE 0.5% PF 20 ML VIAL ONE (16:53)
[2024-09-29] MEDS ORDERED: ONDANSETRON 4 MG/2 ML VIAL ONE ×2 (16:53→18:00)
[2024-09-29] MEDS ORDERED: ROPIVACAINE 0.2% PF 10 ML VIAL ONE (16:53)
[2024-09-29] MEDS ORDERED: DEXAMETHASONE 4 MG/ML VIAL ONE (16:53)
[2024-09-29] MEDS ORDERED: SUGAMMADEX 200 MG/2 ML VIAL IVP ONE (16:54)
[2024-09-29] MEDS ORDERED: ATROPINE ABBOJECT 1 MG/10 ML SYRINGE IVP PRN (17:51)
[2024-09-29] MEDS ORDERED: NALOXONE 0.4 MG/ML VIAL IVP PRN (17:51)
[2024-09-29] MEDS ORDERED: MORPHINE 2 MG/ML CARPUJECT IVP PRN (17:51)
[2024-09-29] MEDS ORDERED: METOCLOPRAMIDE 10 MG/2 ML VIAL IVP PRN (17:51)
[2024-09-29] MEDS ORDERED: ePHEDrine 50 MG/ML VIAL IVP PRN (17:51)
[2024-09-29] MEDS: fentaNYL 100 MCG/2 ML VIAL IVP PRN (17:54)
[2024-09-29] MEDS: ONDANSETRON 4 MG/2 ML VIAL IVP PRN (18:01)
--- NOTE | 2024-09-29 18:03 | OPERATIVE REPORT ---
Operative Report General Procedure Data: Operation Date: 09/29/24 11:45 Proposed Procedures p Colonoscopy(Not Applicable) - Asia Naranjo DO s Exploratory Laparotomy(Not Applicable) - Asia Naranjo DO Actual Procedures p Colonoscopy WITH POLYPECTOMIES(Not Applicable) - Asia Naranjo, s Exploratory Laparotomy, segmental sigmoid resection and primary anastomosis, liver biopsy, and rigid proctoscopy - Asia Naranjo DO Anesthesia Type General Case Staff Anesthesia Provider: Yomi Jenkins Anesthesia Provider: Antonietta Cowart Case Times Procedure Start: 09/29/24 13:31 Procedure End: 09/29/24 17:19 Time out: 09/29/24 13:30 Preoperative diagnosis: History of high risk colon polyp; surveillance screening colonoscopy due Postoperative diagnosis: 1) History of high risk colon polyp; s/p surveillance screening colonoscopy 2) Cecal polyp, ascending colon polyp 3) Sigmoid perforation 4) Liver mass Procedure Note Estimated Blood Loss (ml): 75 Output, Urine Amount (ml): 200 Pathology: 1) Cecal polyp 2) Ascending colon polyp 3) Sigmoid colon with perforation 4) Peritoneal nodule 5) Liver nodule Indications: 68M with history of >1cm sessile tubular adenoma of the cecum in 2022, due for surveillance colonoscopy. No alarm sx or FHX relevant to colon cancer. Findings: During the colonoscopy right from the start, the patient was noted to have a tense, almost rigid abdominal wall. This was felt by the anesthesia provider to represent a paradoxical muscle rigidity in response to the fentanyl that he was given in the preoperative holding area due to his chronic back pain. The abdominal rigidity resulted in a limited abdominal domain with multiple tight loops formed within the colonoscope during advancement of the scope. With with some external abdominal pressure I was able to reach the cecum. 2 polyps were identified 1 in the cecum and 1 in the ascending colon and removed with a cold forcep. The scope was slowly withdrawn. Sigmoid diverticula were observed. While withdrawing through the sigmoid colon I suddenly found that I was visualizing small bowel as well as the anterior abdominal wall from within the peritoneal cavity. This finding immediately alerted me to the fact that the scope had traversed the colon wall through an iatrogenic perforation. The patient was hemodynamically stable, and there was no significant amount of bleeding within the lumen of the colon. The scope was withdrawn and the patient was transferred to the operating room where he was intubated for immediate exploratory laparotomy. *There is a separate colonoscopy procedural report that may be referenced as well. In the operating room, a mid sigmoid tear was observed. The tear was oriented in a transverse manner. involving two thirds the circumference of the sigmoid colon. Due to the size of the tear it was not amenable to primary repair. A segmental colon resection of 6 cm of sigmoid colon was completed. A [id number] functional end-to-end sigmoid to sigmoid colon anastomosis was completed. And negative leak test was completed with rigid proctoscopy. On rigid proctoscopy there was no active intraluminal bleeding from the anastomosis. Fortunately because the patient had been bowel prepped for the colonoscopy, there was no spillage of stool within the abdomen despite the sigmo id colon tear. While examining the remainder of the colon for additional tears or perforations, of which none were found, I identified a 4 mm round white peritoneal nodule along the right lateral abdominal wall. This was removed for pathology. Additionally I observed the surface of the liver to be nodular, which was consistent with his known diagnosis of cirrhosis. However the anterior surface of the far lateral aspect of the right lobe was seen to have a flat white firm scar in a stellate like shape. Additionally on the anterior surface of the liver 2 cm superior to the gallbladder, there was a 1.5 cm multinodular mass that was slightly raised above the surface of the liver. The raised portion of this nodule was removed sharply for pathology. The cut surface was cauterized with Bovie electrocautery for hemostasis. There was significant adhesions throughout the entirety of the abdominal cavity, particularly in the upper abdomen on all surfaces of the liver including between the liver, the omentum, and the abdominal wall. This did limit examination of the remainder of the surface of the liver. Complications: Colonoscopy: sigmoid perforation Surgical case: none Other Other Information/Narrative: The patient was transported from the endoscopy suite to the operating room while sedated. In the operating room he was intubated with an endotracheal tube and general anesthesia was induced. A Morin catheter was placed. A nasogastric tube was placed. He was placed in low lithotomy position, with both arms out. The abdomen was clipped prepped and draped in standard sterile fashion. Ancef and Flagyl were administered. A final timeout was performed with all members of the team being in agreement. A vertical midline incision was made sharply. This was carried down to the fascia with Bovie electrocautery. The fascia was opened sharply and confirmation of entry into the peritoneal cavity without injury of underlying structures was confirmed. The remainder of the fascia was then opened widely with cautery. There was a moderate amount of blood within the pelvis, approximately 25 cc. There was no spillage of stool or succus observed. An Benny wound protector was placed. Beginning in the pelvis the rectum was identified at the peritoneal reflection, and the and the colon was run proximally, in search of the perforation. At the midpoint of the sigmoid colon, a transversely oriented tear was identified, that encompassed two thirds of the circumference of the sigmoid colon. Due to the size of the tear it was not amenable to primary repair, and thus decision was made to proceed with a segmental colon resection. A 60 mm blue load stapler was used to divide the sigmoid colon just distal to and then just proximal to the tear. The LigaSure was used to divide the mesentery just adjacent to the bowel wall. The segmental sigmoid colon specimen measuring approximately 6 cm in length, was passed off the field for pathology. Prior to restoring bowel continuity, I ran the remainder of the colon to evaluate if there were any secondary tears that occurred during the colonoscopy. I examined the descending colon, the splenic flexure, the transverse colon, the hepatic flexure, and the ascending colon and cecum. There were no additional tears or injuries to the colon identified. There was a mild amount of blood from the left upper quadrant around the splenic flexure, but after irrigation there was no ongoing bleeding identified. While exploring the hepatic flexure, I did have to conduct a small amount of lysis of adhesions in order to release the hepatic flexure enough to verify that there was not a posterior tear in the bowel wall, again which there was not. However in doing so I was able to examine the free edge and anterior surface of the right lobe of the liver. Consistent with the patient's known diagnosis of cirrhosis, at the surface of his liver was rather nodular. However there were findings more concerning than nodularity. There was a large stellate shaped flat white scar along the anterior surface of the right lobe. There was a 1.5 cm multinodular white mass raised above the surface of the liver, this was located 2 cm off of the free edge of the liver in line with the gallbladder. The raised portion of this mass was excised sharply and passed off the field for specimen. The exposed surface of the mass was cauterized for hemostasis. Additionally I found a 4 mm peritoneal nodule along the right lateral abdominal wall while exploring the right colon. This peritoneal nodule was removed and sent for pathology as well. I then returned my attention back to the segmental sigmoid resection. I proceeded with a [id number] functional end-to-end anastomosis. The the stapled end of the proximal and distal sigmoid colon were brought together without any twisting, and aligning the antimesenteric edges. A 75 mm common channel was created with a blue load stapler. Using a ring forcep, the lumen was inspected and there was no bleeding observed. The common enterotomy was closed in a 2 layer handsewn manner, with a running 3-0 Vicryl suture followed by 3-0 silk Lembert sutures. The rigid proctoscope was introduced through the anus and advanced to the level of the anastomosis while occluding the sigmoid colon approximately. The anastomosis was submerged under warm saline, and then leak test confirmed no anastomotic leak. There was no active bleeding seen from the anastomosis staple line intraluminally. The proctoscope was then slowly withdrawn, the remainder of the distal sigmoid and rectal colon were examined and no large polyps were observed. The abdomen was irrigated with 2 L of warm normal saline. The abdominal wall fascia was closed with 0 PDS looped suture x 2. The subcutaneous tissues were irrigated with normal saline, and hemostasis was ensured with cautery. The skin was closed with michael, and a silver impregnated dressing was applied. The NG tube and the Morin catheter were removed. A bilateral tap block was done by the DIRECTOR [employer]. The sponge and needle counts were correct. The procedure was completed in response to a complication that occurred during the colonoscopy, there were no additional complications that occurred during the exploratory laparotomy. The patient was transferred into the PACU in stable condition. Asia Naranjo DO, [facility] General Surgeon, [place]
[2024-09-29] MEDS: LACTATED RINGERS 1,000 ML IV SCH ×2 (18:13→19:02)
[2024-09-29] MEDS: HYDROmorphone 0.5 MG/0.5 ML SYRINGE IVP PRN (18:15)
[2024-09-29] MEDS ORDERED: HYDROmorphone 0.5 MG/0.5 ML SYRINGE ONE ×2 (18:15→18:24)
--- NOTE | 2024-09-29 18:49 | ANESTHESIA POST OP EVALUATION ---
Anesthesia Post Eval Post Anesthesia Eval Vitals: Last Vital Signs Temp 36.7 C 09/29/24 18:30 Pulse 85 09/29/24 18:30 Resp 18 09/29/24 18:30 BP 147/62 H 09/29/24 18:30 Pulse Ox 99 09/29/24 18:30 CV Function Including HR & BP: Stable Pain Control: Additional Therapies Ordered (back pain) Nausea & Vomiting: Negative Mental Status: Baseline Respiratory Status: Airway Patent Hydration Status: Satisfactory Anesthesia Complications: None
--- OUTSIDE RECORDS SUMMARY | 2024-09-29 18:54 | EXTERNAL MEDICAL SUMMARY RPT | Continuity of Care Document ---
Author Organization [facility] Address [address] [place] [id number] Phone Problems date description facility 2024-08-18 13:25 Unspecified bacterial pneumonia [facility] 2024-08-19 08:30 Unspecified bacterial pneumonia [facility] 2024-08-19 08:31 Unspecified bacterial pneumonia [facility] 2024-08-19 15:33 Unspecified bacterial pneumonia [facility] 2024-08-19 15:37 [facility] 08:26 Encounter for screen ing for malignant neoplasm of colon [facility] 2024-08-30 08:26 Personal history of adenomatous and serrated colon polyps [facility] 2024-09-29 14:07 Personal history of adenomatous and serrated colon polyps [facility] 2024-09-29 14:30 Personal history of adenomatous and serrated colon polyps [facility] 2024-09-29 14:32 Personal history of adenomatous and serrated colon polyps [facility] 2024-09-29 16:57 Personal history of adenomatous and serrated colon polyps [facility] 2024-09-29 18:28 Personal history of adenomatous and serrated colon polyps [facility] Results/Labs test date facility value unit notes Result panel 1 NUCLEATED RED BLOOD CELLS AUTO 2024-09-29 16:20 [facility] 0.0 /100wbc (missing) BASOPHILS # (AUTO) 2024-09-29 16:20 [facility] 0.0 10 3/ul (missing) NRBC ABSOLUTE COUNT (AUTO) 2024-09-29 16:20 [facility] 0.00 x10 3/ul (missing) EOSINOPHILS # (AUTO) 2024-09-29 16:20 [facility] 0.1 10 3/ul (missing) MONOCYTES # (AUTO) 2024-09-29 16:20 [facility] 0.4 10 3/ul (missing) LYMPHOCYTES # (AUTO) 2024-09-29 16:20 [facility] 0.8 10 3/ul (missing) INR 2024-09-29 16:20 [facility] 1.3 (missing ) Oral Anticoagulant Indication INR range Venous Thrombosis, P.E. 2.0 - 3.0 Mechanical Valve 2.5 - 3.5 HGB - HEMOGLOBIN 2024-09-29 16:20 [facility] 11.4 g /dl (missing) PLT - PLATELET COUNT 2024-09-29 16:20 [facility] 127 10 3/ul (missing) RED CELL DISTRIBUTION WIDTH 2024-09-29 16:20 [facility] 14.0 % (mi ssing) PT - PROTHROMBIN TIME 2024-09-29 16:20 [facility] 14.7 secs N MEAN CORPUSCULAR HEMOGLOBIN 2024-09-29 16:20 [facility] 28.0 pg (missing) MEAN CORPUSCULAR HGB CONC 2024-09-29 16:20 [facility] 32.0 g/dl (missing) HCT - HEMATOCRIT 2024-09-29 16:20 [facility] 35.6 % (missing) RED BLOOD COUNT 2024-09-29 16:20 [facility] 4.07 10 6/ul (missing) NEUTROPHILS # (AUTO) 2024-09-29 16:20 [facility] 5.6 10 3/ul (missing) WHITE BLOOD COUNT 2024-09-29 16:20 [facility] 6.9 x10 3/ul (missing) MEAN CORPUSCULAR VOLUME 2024-09-29 16:20 [facility] 87.5 fl (missing) MEAN PLATELET VOLUME 2024-09-29 16:20 [facility] 9.4 fl (missing) Result panel 2 BILIRUBIN,TOTAL 2024-09-29 16:35 [facility] 0.3 mg /dl As of November 2022 testing method has changed, this may include reference ranges. ALBUMIN/GLOBULIN RATIO 2024-09-29 16:35 [facility] 1.5 (missing) (missing) CREATININE 2024-09-29 16:35 [facility] 1.5 mg/dl As of November 2022 testing method has changed, this may include reference ranges. CHLORIDE 2024-09-29 16:35 [facility] 107 mmol/l As of November 2022 testing method has changed, this may include reference ranges. GLUCOSE 2024-09-29 16:35 [facility] 136 mg/dl As of November 2022 testing method has changed, this may include reference ranges. SODIUM 2024-09-29 16:35 [facility] 137 mmol/l (missing) GLOBULIN 2024-09-29 16:35 [facility] 2.2 g/dl (missing) CARBON DIOXIDE - CO2 2024-09-29 16:35 [facility] 23 mmol/l As of November 2022 testing method has changed, this may include reference ranges. AST ASPARTATE AMINOTRANSFERASE 2024-09-29 16:35 [facility] 24 iu/l As of November 2022 testing method has changed, this may include reference ranges. ALT ALANINE AMINOTRANSFERASE 2024-09-29 16:35 [facility] 25 iu/l As of November 2022 testing method has changed, this may include reference ranges. BUN - BLOOD UREA NITROGEN 2024-09-29 16:35 [facility] 25 mg/dl As of Nov testing method has changed, this may include reference ranges. ALBUMIN 2024-09-29 16:35 [facility] 3.3 g/dl As of November 2022 testing method has changed, this may include reference ranges. POTASSIUM 2024-09-29 16:35 [facility] 4.8 mmol/l As of November 2022 testing method has changed, this may include reference ranges. GFR - MDRD 2024-09-29 16:35 [facility] 46 (in g) Social History date description facility
[2024-09-29] MEDS ORDERED: HYDROmorphone 0.5 MG/0.5 ML SYRINGE IVP PRN (18:59)
[2024-09-29] MEDS ORDERED: SODIUM CHLORIDE FLUSH 0.9% 10 ML SYRINGE IVP PRN (18:59)
[2024-09-29] MEDS ORDERED: DICLOFENAC SODIUM 1% GEL 50 GM TUBE TOP PRN (18:59)
[2024-09-29] MEDS ORDERED: ONDANSETRON 4 MG/2 ML VIAL IVP PRN (18:59)
[2024-09-29] MEDS: MELATONIN 10 MG PO SCH (21:46)
[2024-09-29] MEDS: ACETAMINOPHEN 1,000 MG/100 ML 1,000 MG/100 ML BAG IV SCH (21:47)
[2024-09-29] MEDS: KETOROLAC 15 MG/ML VIAL IVP SCH (21:47)
[2024-09-29] MEDS: GABAPENTIN 300 MG CAPSULE PO SCH (21:47)
[2024-09-29] MEDS: oxyCODONE ER 10 MG TABLET PO SCH (21:47)
[2024-09-29] MEDS: CYCLOBENZAPRINE 10 MG TABLET PO SCH (21:47)
[2024-09-29] MEDS: METOPROLOL 5 MG/5 ML VIAL IVP SCH (23:53)
[2024-09-29] MEDS: SODIUM CHLORIDE FLUSH 0.9% 10 ML SYRINGE IVP SCH (23:56)
[2024-09-30 05:44] LABS: BASOPHILS % (AUTO) 0.3 %; HCT - HEMATOCRIT 38.7 % (42.0-52.0); HGB - HEMOGLOBIN 12.5 g/dL (14.0-18.0); LYMPHOCYTES # (AUTO) 0.4 10^3/uL (1.5-3.5); LYMPHOCYTES % (AUTO) 3.5 %; MEAN CORPUSCULAR HGB CONC 32.3 g/dL (32.0-36.0); MEAN CORPUSCULAR VOLUME 86.6 fL (80.0-94.0); MEAN PLATELET VOLUME 9.4 fL (7.4-11.4); MONOCYTES # (AUTO) 0.6 10^3/uL (0.0-1.0); NEUTROPHILS % (AUTO) 90.8 %; PLT - PLATELET COUNT 130 10^3/uL (130-450); RED BLOOD COUNT 4.47 10^6/uL (4.70-6.10); RED CELL DISTRIBUTION WIDTH 13.7 % (12.0-15.0)
[2024-09-30 05:58] LABS: CALCIUM 8.2 mg/dL (8.5-10.3); CREATININE 1.4 mg/dL (0.6-1.3); MAGNESIUM 1.5 mg/dL (1.7-2.3); PHOSPHORUS 4.3 mg/dL (2.5-5.0); POTASSIUM 4.8 mmol/L (3.5-4.5)
[2024-09-30] MEDS: SODIUM CHLORIDE 0.9% 1,000 ML IV SCH (07:53)
[2024-09-30] MEDS: MAGNESIUM SULFATE 2 GRAM 2 GM/50 ML BAG IV ONE (07:53)
[2024-09-30] MEDS: TAMSULOSIN 0.4 MG CAPSULE PO SCH (08:08)
[2024-09-30] MEDS: PANTOPRAZOLE 40 MG TABLET PO SCH (08:09)
[2024-09-30] MEDS: ATORVASTATIN 40 MG TABLET PO SCH (08:09)
[2024-09-30] MEDS: ASCORBIC ACID 500 MG TABLET PO SCH (08:09)
[2024-09-30] MEDS ORDERED: FUROSEMIDE 20 MG TABLET PO PRN (09:03)
[2024-09-30] MEDS: amLODIPine 5 MG TABLET PO SCH (09:52)
--- NOTE | 2024-09-30 12:05 | PROVIDER PROGRESS NOTE ---
Subjective General Admit Date: 09/29/24 Procedure Date: 09/29/24 Post Op Days: 1 Procedure Performed: Colonoscopy, ExLap, segmental sigmoid resection & anastomosis, liver biopsy Other Other Information/Narrative: POD1. Complains only of exacerbation of chronic back pain from hospital bed. Minimal abdominal discomfort. No nausea. No flatus. HDN/AF. Met DTV overnight with voiding difficulty. Review of Systems Status of ROS: 10 or more systems reviewed and unremarkable except as noted in history and below Exam Exam Vital Signs: Vital Signs x48h Temp Pulse Pulse Resp BP BP Pulse Ox 09/30/24 11:07 73 143/68 H 09/30/24 08:50 36.7 C 69 16 162/71 H 93 09/30/24 07:25 36.7 C 67 20 169/67 H 94 09/30/24 06:35 166/66 H 09/30/24 06:23 72 160/63 H 09/30/24 04:53 36.7 C 72 18 169/73 H 97 O2 Flow Rate 09/30/24 11:07 09/30/24 08:50 2 09/30/24 07:25 2 09/30/24 06:35 09/30/24 06:23 09/30/24 04:53 2 Constitutional normal general appearance and no apparent distress HENMT normocephalic Eyes conjunctivae normal and normal visual lim by confrontation Neck/C-Spine visual inspection normal Respiratory normal respiratory effort Cardiovascular normal heart rate noted Gastrointestinal abdomen soft to palpation and nontender to palpation mild distension. silver dressing CDI on midline wound. Extremities normal to inspection Neurology no movement abnormality noted Psychiatry mental status grossly normal and oriented x3 Skin skin color normal Impression/Plan Problem List (1) Perforation of sigmoid colon: Plan: 68M PPD1 s/p surveilling screening colonoscopy for history of large adenomatous polyp. Procedure complicated by sigmoid perforation. Thus now also POD1 s/p exploratory laparotomy, segmental sigmoid resection with primary anastomosis, lysis of adhesions and biopsy of incidentally identified liver nodule. Notable history of now-compensated alcoholic cirrhosis (alcohol abuse in remission) and significant chronic back pain on home multimodal pain regimen including opioids. POD1/0800: without acute events postoperatively overnight. Labs are stable this AM, tolerating clears and no concern for post-op complications thus far, though it is only ~15hrs postop. Patient is nearly-adamant that he go home today as he cannot tolerate being in the hospital due to his back pain. We discussed that typical postop pathway after a left colon resection is to remain in the hospital until ensuring tolerance of a regular diet without ileus or post-op complication, ideally at least another night until morning of POD2 with repeat labs. He does not think he can do this. Will reassess after regular diet for lunch, and consider DC this evening with strict return precautions if doing well. - multimodal pain regimen with scheduled IV tylenol & toradol, scheduled TID flexeril and gabapentin, BID oxycontin, PRN oxycodone and dilaudid. - regular diet, DC IVF, replace magnesium - no antibiotics - dressing in place x 5 d. - continue home meds (lasix, amlodipine, sartan, statin, metoprolol (IV instead of PO), inhalers, flomax) - SCDs, add lovenox if no DC today - no abx - repeat labs in AM if no DC today. Asia Naranjo DO, FACS General Surgeon, [facility] (2) History of adenomatous polyp of colon:
--- NOTE | 2024-09-30 12:26 | PHARMACY PROGRESS NOTE ---
Best Possible Medication History Admit Date and Time: 09/29/24 1827 Home Medications Medication Instructions Recorded Confirmed Type oxycodone 5 mg tablet 5 mg PO TID PRN Pain 5-7 02/1709/29/24 History multivitamin 1 tab PO DAILY 01/19/2109/03 History atorvastatin 80 mg tablet (Lipitor) 80 mg PO DAILY 09/29/24 History pantoprazole 40 mg tablet,delayed 20 mg PO DAILY 11/1609/29/24 History release sennosides 8.6 mg capsule (senna) 17.2 mg PO BID 11/1609/29/24 History ascorbic acid (vitamin C) 250 mg 500 mg PO DAILY 12/1709/29/24 History tablet (Vitamin C) aspirin 81 mg tablet,delayed 81 mg PO DAILY 12/17/22 0 09/29/24 History release (Levant Aspirin) cyanocobalamin (vitamin B-12) 1,000 mcg PO DAILY 12/1709/23/24 History 1,000 mcg capsule cyclobenzaprine 10 mg tablet 10 mg PO HS 12/17/2209/03 History diclofenac sodium 1 % topical gel 1 g TP QID PRN Pain 1-4 12/17/22 09/29/24 History (Voltaren Arthritis Pain) fluticasone 250 mcg-salmeterol 50 1 ea IH BID 12/17/22 09/29/24 History mcg/dose blistr powdr for inhalation furosemide 20 mg tablet 20 mg PO DAILY PRN FLUID RET ENTION 12/17/22 09/23/24 History Held on 09/23/24. Instructions: Per Patient magnesium citrate,mag oxide 250 mg 250 mg PO DAILY 09/29/24 History capsule melatonin 10 mg chewable tablet 10 mg PO HS 12/17/22 0 09/29/24 History (MelatoninMax) metoprolol succinate 100 mg 100 mg PO DAILY 12/17/22 0 09/29/24 History tablet,extended release 24 hr tamsulosin 0.4 mg capsule 0.8 mg PO DAILY 12/17/22 History tiotropium bromide 2.5 2 puff inhalation DAILY 12/0309/23/24 History mcg/actuation mist for inhalation (Spiriva Respimat) amlodipine 5 mg tablet 10 mg PO DAILY 09/27/2309/03 History ferrous sulfate 325 mg (65 mg 325 mg PO DAILY 09/27/23 09/29/24 History iron) tablet naproxen 250 mg tablet 250 mg PO DAILY PRN Pain 1-4 09/27/23 09/29/24 History cholecalciferol (vitamin D3) 125 125 mcg PO DAILY 09/0309/29/24 History mcg (5,000 unit) tablet (Vitamin D3) gabapentin 300 mg capsule 300 mg PO QPM 09/23/2409/29 History guaifenesin 400 mg tablet 400 mg PO Q4H PRN congestion 09/23/24 09/29/24 History valsartan 40 mg tablet 40 mg PO BID 09/23/24 History Processed by: Pharmacy (Medication reconciliation completed by [employer]) Medications reviewed in ED?: No Medication History completed: Yes Patient Interview: Completed [facility] Statement: As the person ultimately responsible for medication therapy, providers are able to order a medication from an existing home medication list in [facility] via the "Reconcile Routine" prior to Confirmation of that medication by application support analyst. Such practice is discouraged except when the physician, in their clinical judgment, deems that a medical need exists for a medication without regard to previous use.
--- NOTE | 2024-09-30 13:49 | PT Plan of Care ---
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 Today is POD#1; pt with midline incision and cleared for PT eval by surgeon. Pt reports he is indep at baseline and lives in [facility] with ramp to enter, granddaughter lives directly next door and helps as needed. Of note pt was previously on hospice but states he "graduated" in 2021 and has been indep/Marj since. He states he still drives. Upon PT eval, pt is sitting at EOB, observed from window performing log roll correctly for safe post-surgical transfer. Pt transfers and amb x40' in room without AD. Fair to good balance with stiff legged gait; pt endorses feeling "more stiff than usual" but states he has chronic neck/back issues and is unable to stand fully upright. PT reviews safe body mechanics and functional mobility s/p surgery. Pt is receptive but states he is very familiar with post-op recovery d/t past surgeries. Pt may benefit from continued skilled PT in acute setting to ensure safety with mobility and transfers. PT encouraged pt to walk hallways with nsg assist. When medically clear PT rec dc home with HH services though pt is confident he can manage witho ut HH therapies. GOALS Improve supine to sit to:: Modified Independent Improve sit to stand to:: Modified Independent Improve pivot transfer ability to:: Modified Independent Improve sit to supine to:: Modified Independent Improve gait ability to:: Ind Advance Assistive Device to:: None Increase distance walked to (in feet):: 100 PLAN Duration: 2-3 add'l visits DISCHARGE RECOMMENDATIONS Discharge Location: Previous Living Situation Support/Services Needed: Home Health P.T. Other Discharge Equipment: tbd Transport Needs at Discharge: Personal vehicle
[2024-09-30] MEDS: oxyCODONE 5 MG TABLET PO PRN (13:59)
[2024-09-30] MEDS: FORMOTEROL FUMARATE NEB 20 MCG/2 ML INH SCH (14:21)
[2024-09-30] MEDS: BUDESONIDE 0.5 MG/2 ML NEB INH SCH (14:21)
[2024-09-30] MEDS: IPRATROPIUM 0.2 MG/ML NEB INH SCH (14:21)
[2024-09-30 15:52] VITALS: BP 158/70; TEMP 98.1; O2SAT 95
[2024-09-30] MEDS ORDERED: MELATONIN 3 MG TABLET PO SCH (21:00)
[2024-10-01] MEDS ORDERED: PANTOPRAZOLE 40 MG TABLET PO SCH (07:00)
[2024-10-01] MEDS ORDERED: LOSARTAN 50 MG TABLET PO SCH (09:30)
--- NOTE | 2024-10-02 20:09 | ED Physician Documentation ---
Meds/Allgy Home Medications Ambulatory Orders Medication Instructions Recorded Confirmed multivitamin 1 tab PO DAILY 01/19/2109/04 atorvastatin 80 mg tablet (Lipitor) 80 mg PO DAILY 10/02/24 pantoprazole 40 mg tablet,delayed 20 mg PO DAILY 11/1610/02/24 release sennosides 8.6 mg capsule (senna) 17.2 mg PO BID 11/1610/02/24 ascorbic acid (vitamin C) 250 mg 500 mg PO DAILY 12/1710/02/24 tablet (Vitamin C) aspirin 81 mg tablet,delayed 81 mg PO DAILY 12/17/22 0 10/02/24 release (Tebbetts Aspirin) cyanocobalamin (vitamin B-12) 1,000 mcg PO DAILY 12/1710/02/24 1,000 mcg capsule cyclobenzaprine 10 mg tablet 10 mg PO HS 12/17/2209/04 Held on 09/30/24. Instructions: Resume on 10/07/24. For one week, you have a different Rx to take the medication three times a day. Then resume the 'once a day at night' dosing. diclofenac sodium 1 % topical gel 1 g TP QID PRN Pain 1-4 12/17/22 10/02/24 (Voltaren Arthritis Pain) fluticasone 250 mcg-salmeterol 50 1 ea IH BID 12/17/22 10/02/24 mcg/dose blistr powdr for inhalation furosemide 20 mg tablet 20 mg PO DAILY PRN FLUID RET ENTION 12/17/22 10/02/24 magnesium citrate,mag oxide 250 mg 250 mg PO DAILY 10/02/24 capsule melatonin 10 mg chewable tablet 10 mg PO HS 12/17/22 0 10/02/24 (MelatoninMax) metoprolol succinate 100 mg 100 mg PO DAILY 12/17/22 0 10/02/24 tablet,extended release 24 hr tamsulosin 0.4 mg capsule 0.8 mg PO DAILY 12/17/22 tiotropium bromide 2.5 2 puff inhalation DAILY 12/0310/02/24 mcg/actuation mist for inhalation (Spiriva Respimat) amlodipine 5 mg tablet 10 mg PO BID 09/27/23 ferrous sulfate 325 mg (65 mg 325 mg PO DAILY 09/27/23 10/02/24 iron) tablet naproxen 250 mg tablet 250 mg PO DAILY PRN Pain 1-4 09/27/23 10/02/24 cholecalciferol (vitamin D3) 125 125 mcg PO DAILY 09/0310/02/24 mcg (5,000 unit) tablet (Vitamin D3) gabapentin 300 mg capsule 300 mg PO QPM 09/23/2410/02 Held on 09/30/24. Instructions: Resume on 10/07/24. For one week, you have a different Rx to take the medication three times a day. Then resume the 'once a day at night' dosing. guaifenesin 400 mg tablet 400 mg PO Q4H PRN congestion 09/23/24 10/02/24 valsartan 40 mg tablet 40 mg PO BID 09/23/24 cyclobenzaprine 10 mg tablet 10 mg PO TID PRN Pain [address] [facility] #21 09/30/24 10/02/24 tabs gabapentin 300 mg capsule 300 mg PO TID PRN pain 1 wee k #21 09/30/24 10/02/24 caps ondansetron 4 mg disintegrating 4 mg translingual Q8H PRN nausea 09/30/24 10/02/24 tablet and vomiting #10 tabs oxycodone 5 mg tablet 5 mg PO TID PRN Pain 5-7 #20 tabs 09/30/24 10/02/24 polyethylene glycol 3350 17 17 g PO BID PRN constipati on #238 09/30/24 10/02/24 gram/dose oral powder grams Allergies Allergies Allergy/AdvReac Type Severity Reaction Status Date / Time BLAS Inhibitors Allergy Severe Edema Verified 10/02/24 06:11 hydrochlorothiazide Allergy Severe kidney Verified 10/02/24 06:11 failure hydrocodone bitartrate * Allergy Intermediate Itching Verified 10/02/24 06:11 (From Vicodin) codeine AdvReac Severe Respiratory Verified 10/02/24 06:11 PFSH Active Problems All Active Problems (Updated 10/03/24 @ 13:43 by Thierry Graham MD) Claudication of both lower extremities (Acute) Ileus following gastrointestinal surgery (Acute) Diabetes type 2 (Acute) Alcoholic cirrhosis of liver (Acute) PVD (peripheral vascular disease) (Acute) Atrial fibrillation (Acute) Hyperlipidemia (Acute) Hypertension (Acute) Anemia (Acute) Chronic back pain (Acute) CAD (coronary artery disease) (Acute) COPD (chronic obstructive pulmonary disease) (Acute) Bursitis, prepatellar, left (Acute) Constipation (Acute) BLAS inhibitor-aggravated angioedema (Acute) Medical History Medical History (Updated 10/03/24 @ 13:43 by Thierry Graham MD) Perforation of sigmoid colon History of adenomatous polyp of colon (~2022) sessile, >1cm History of AR (myocardial infarction) 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 Mother No problems noted. Brother No problems noted. Social History Social History Smoking Status: Current every day smoker If you are a former smoker, when did you quit? (Date/Year): APR 2023 Number of Years Smoked: 50 How many cigarettes a day do you smoke? (20 cigarettes=1 Pk): 30 Do you dip or chew tobacco?: No Patient requests smoking cessation consult: No Initiate information on smoking cessation: No Relationship: Level: Independent Home Mobility Equipment: Cane Do you feel safe in your home environment?: Yes Suffered physical, verbal, emotional, or financial abuse?: No History of Abuse: No Frequency: Daily POLST Patient has POLST: No Results Vitals Vitals: Oxygen O2 Source Room air Labs Labs: Laboratory Tests 09/29/24 09/29/24 09/29/24 16:20 16:35 21:36 WBC 6.9 RBC 4.07 L Hgb 11.4 L Hct 35.6 L MCV 87.5 MCH 28.0 MCHC 32.0 RDW 14.0 Plt Count 127 L MPV 9.4 Neut # (Auto) 5.6 Lymph # (Auto) 0.8 L [place] # (Auto) 0.4 Eos # (Auto) 0.1 Baso # (Auto) 0.0 Absolute Nucleated RBC 0.00 Nucleated RBC % 0.0 PT 14.7 H INR 1.3 H Sodium 137 Potassium 4.8 H Chloride 107 Carbon Dioxide 23 Anion Gap 7.0 BUN 25 H Creatinine 1.5 H Estimated GFR (MDRD) 46 L Glucose 136 H POC Whole Bld Glucose 133 Calcium 8.1 L Phosphorus Magnesium Total Bilirubin 0.3 AST 24 ALT 25 Alkaline Phosphatase 75 Total Protein 5.5 L Albumin 3.3 Globulin 2.2 Albumin/Globulin Ratio 1.5 09/30/24 09/30/24 04:57 07:52 WBC 11.0 H RBC 4.47 L Hgb 12.5 L Hct 38.7 L MCV 86.6 MCH 28.0 MCHC 32.3 RDW 13.7 Plt Count 130 MPV 9.4 Neut # (Auto) 10.0 H Lymph # (Auto) 0.4 L [place] # (Auto) 0.6 Eos # (Auto) 0.0 Baso # (Auto) 0.0 Absolute Nucleated RBC 0.00 Nucleated RBC % 0.0 PT INR Sodium 135 Potassium 4.8 H Chloride 105 Carbon Dioxide 22 Anion Gap 8.0 BUN 26 H Creatinine 1.4 H Estimated GFR (MDRD) 50 L Glucose 159 H POC Whole Bld Glucose 161 Calcium 8.2 L Phosphorus 4.3 Magnesium 1.5 L Total Bilirubin AST ALT Alkaline Phosphatase Total Protein Albumin Globulin Albumin/Globulin Ratio Discharge Plan Discharge Patient Disposition: 01 Home, Self Care Condition: Good Medically Cleared Date:: 09/30/24 Prescriptions: New cyclobenzaprine 10 mg Tablet 10 mg PO TID PRN (Reason: Pain) 7 Days Qty: 21 0RF gabapentin 300 mg Capsule 300 mg PO TID PRN (Reason: pain) 7 Days Qty: 21 0RF polyethylene glycol 3350 17 gram/dose powder 17 g PO BID PRN (Reason: constipation) Qty: 238 0RF Rx Instructions: use while taking narcotic pain medication ondansetron 4 mg tablet,disintegrating 4 mg translingual Q8H PRN (Reason: nausea and vomiting) Qty: 10 0RF Continued multivitamin 1 EACH tablet 1 tab PO DAILY atorvastatin [Lipitor] 80 MG tablet 80 mg PO DAILY pantoprazole 40 MG tablet,delayed release (DR/EC) 20 mg PO DAILY senna 8.6 MG capsule 17.2 mg PO BID fluticasone propion-salmeterol 1 EACH blister with device 1 ea IH BID metoprolol succinate 100 MG tablet extended release 24 hr 100 mg PO DAILY aspirin [Tebbetts Aspirin] 81 MG tablet,delayed release (DR/EC) 81 mg PO DAILY tamsulosin 0.4 MG capsule 0.8 mg PO DAILY furosemide 20 MG tablet 20 mg PO DAILY PRN (Reason: FLUID RETENTION) diclofenac sodium [Voltaren Arthritis Pain] 5 % gel 1 g TP QID PRN (Reason: Pain 1-4) Spiriva Respimat 4 GM mist 2 puff inhalation DAILY Patient Comments: 2 puffs once a day MelatoninMax 10 MG tablet,chewable 10 mg PO HS ascorbic acid (vitamin C) [Vitamin C] 250 MG tablet 500 mg PO DAILY cyanocobalamin (vitamin B-12) 1,000 MCG capsule 1,000 mcg PO DAILY magnesium citrate,mag oxide 250 MG capsule 250 mg PO DAILY naproxen 250 MG tablet 250 mg PO DAILY PRN (Reason: Pain 1-4) amlodipine 5 MG tablet 10 mg PO BID ferrous sulfate 325 MG tablet 325 mg PO DAILY valsartan 40 mg tablet 40 mg PO BID cholecalciferol (vitamin D3) [Vitamin D3] 125 mcg (5,000 unit) tablet 125 mcg PO DAILY guaifenesin 400 mg tablet 400 mg PO Q4H PRN (Reason: congestion) oxycodone 5 MG tablet 5 mg PO TID PRN (Reason: Pain 5-7) Qty: 20 0RF Held cyclobenzaprine 10 MG tablet 10 mg PO HS Hold Instructions: Resume on 10/07/24. For one week, you have a different Rx to take the medication three times a day. Then resume the 'once a day at night' dosing. gabapentin 300 mg capsule 300 mg PO QPM Hold Instructions: Resume on 10/07/24. For one week, you have a different Rx to take the medication three times a day. Then resume the 'once a day at night' dosing. Activity Restrictions/Additional Instructions: DISCHARGE INSTRUCTIONS * If you are unable to pass gas or bowel movement, and find that your stomach is becoming more bloated and painful, or progressing to vomiting, you must return to the ER. This could be a sign of surgical complication that needs to be evaluated. * Please call the [facility] Surgery [facility] / Dr. Naranjo's office ([phone]) for any questions or signs of bleeding or infection (redness or drainage at incision, worsening pain/nausea/vomiting/fever). * Go to the Emergency Room after hours for severe symptoms. DIET * You may resume your normal diet if there is no nausea or vomiting. * If nausea or vomiting occurs, don't eat or drink anything for one hour. Then start drinking small amounts of clear liquids. Later, add crackers, gradually building up to your usual diet. ACTIVITY INSTRUCTIONS * No lifting more than 20 pounds for 4 weeks * May shower normally DRESSING CARE * Remove the bandage after 5 days (On Friday09/03/24) * Leave the skin michael in place - they will be removed at your follow up visit * Using supportive garments to reduce surgical site motion will reduce pain MEDICATIONS * Use your home pain medications. * I have prescribed an additional #20 oxycodone pills * Your nightly medications (gabapentin and cyclobenzaprine) maybe taken three times a day for the next week - I have prescribed additional pills for you. * Ondansetron is an antinausea pill that dissolves under the tongue that may be used as needed * Miralax is an additional laxative that can be used along with your regular Senna ANESTHESIA PRECAUTIONS * Anesthesia and medications given during surgery remain in your body up to 24 hours. This may slow reaction time and/or decrease coordination. FOR THE NEXT 24 HOURS: * Have a responsible person with you * Avoid any activity that requires you to be alert and coordinated * DO NOT DRIVE a motor vehicle for 24 hours or as long as you are taking opioid pain medication * Do not drink alcoholic beverages * Do not smoke unattended Patient Date Escort Date RN Date Diet: Regular Print Language: Maldivian Patient Instructions: Surgery Anesthesia After Follow-up Care: TONY ALEXANDER ARNP [Primary Care Provider] - Asia Naranjo DO [Provider Admit Priv/Credential] - 10/11/24 11:15 am
--- NOTE | 2024-10-07 15:45 | Discharge Summary ---
"Discharge Summary Admit Date: 09/29/24 Discharge Date: 09/30/24 Discharging Provider: Asia Naranjo DO Code Status: Attempt Resuscitation DIAGNOSES Admission Diagnoses: history of adenomatous polyps Discharge Diagnoses with Status of Each Condition: history of adenomatous polyps - unchanged, s/p surveillance colonoscopy perforated sigmoid colon - resolved s/p surgery HPI History of Present Illness: 68M referred for surveillance colonoscopy. His last colonoscopy was in [address] Graham - he had a cecal sessile tubular adenoma that was >1cm, and thus due to repeat in 1-3 years. He denies blood in stool, changes in bowel habits, unintentional weight loss, abdominal pain, or FHX of colon cancer. He takes daily pantoprazole but says he has never had heartburn. He has a history of alcoholic cirrhosis which is currently compensated and he is in etoh remission since 2021, he follows with [facility] [place] for his cirrhosis and HCC screening; he had a normal EGD without varices in 2019, his 2022 RUQUS had no portal HTN. He has a history of malignancy carcinoid tumor of the lung, treated with radiation therapy within the past year. CONSULTS | PROCEDURES Consultations: none Procedures: 09/29 - screening colonoscopy 09/29 - exploratory laparotomy, lysis of adhesions, segmental sigmoid colectomy, liver biopsy HOSPITAL COURSE Hospital Course: 68M admitted for surveillance screening colonoscopy for history of large adenomatous polyp. The colonoscopy was complicated by sigmoid perforation, recognized during the procedure and without hemodynamic instability. He was immediately moved from the endoscopy suite to an operating room. He underwent exploratory laparotomy with segmental sigmoid resection, primary anastomosis, lysis of adhesions and biopsy of incidentally identified liver nodule. He was admitted to the floor postoperatively. On POD1 he had had no acute events, labs were stable, he tolerated clears for breakfast and regular diet for lunch without nausea. Patient was nearly-adamant that he go home POD1 as he cannot tolerate being in the hospital due to his back pain. We discussed that typical postop pathway after a left colon resection is to remain in the hospital until ensuring tolerance of a regular diet without ileus or post-op complication, ideally at least another night until morning of POD2 with repeat labs. He declined. He was discharged to home with very strict return precautions on the evening on POD1. ALLERGIES Allergies Allergy/AdvReac Type Severity Reaction Status Date / Time BLAS Inhibitors Allergy Severe Edema Verified 10/02/24 06:11 hydrochlorothiazide Allergy Severe kidney Verified 10/02/24 06:11 failure hydrocodone bitartrate * Allergy Intermediate Itching Verified 10/02/24 06:11 (From Vicodin) codeine AdvReac Severe Respiratory Verified 10/02/24 06:11 MEDICATIONS Ambulatory Orders Medication Instructions Recorded Confirmed multivitamin 1 tab PO DAILY 01/19/2109/04 atorvastatin 80 mg tablet (Lipitor) 80 mg PO DAILY 10/02/24 pantoprazole 40 mg tablet,delayed 20 mg PO DAILY 11/1610/02/24 release sennosides 8.6 mg capsule (senna) 17.2 mg PO BID 11/1610/02/24 ascorbic acid (vitamin C) 250 mg 500 mg PO DAILY 12/1710/02/24 tablet (Vitamin C) aspirin 81 mg tablet,delayed 81 mg PO DAILY 12/17/22 0 10/02/24 release ([place] Aspirin) cyanocobalamin (vitamin B-12) 1,000 mcg PO DAILY 12/1710/02/24 1,000 mcg capsule cyclobenzaprine 10 mg tablet 10 mg PO HS 12/17/2209/04 Held on 09/30/24. Instructions: Resume on 10/07/24. For one week, you have a different Rx to take the medication three times a day. Then resume the 'once a day at night' dosing. diclofenac sodium 1 % topical gel 1 g TP QID PRN Pain 1-4 12/17/22 10/02/24 (Voltaren Arthritis Pain) fluticasone 250 mcg-salmeterol 50 1 ea IH BID 12/17/22 10/02/24 mcg/dose blistr powdr for inhalation furosemide 20 mg tablet 20 mg PO DAILY PRN FLUID RET ENTION 12/17/22 10/02/24 magnesium citrate,mag oxide 250 mg 250 mg PO DAILY 10/02/24 capsule melatonin 10 mg chewable tablet 10 mg PO HS 12/17/22 0 10/02/24 (MelatoninMax) metoprolol succinate 100 mg 100 mg PO DAILY 12/17/22 0 10/02/24 tablet,extended release 24 hr tamsulosin 0.4 mg capsule 0.8 mg PO DAILY 12/17/22 tiotropium bromide 2.5 2 puff inhalation DAILY 12/0310/02/24 mcg/actuation mist for inhalation (Spiriva Respimat) amlodipine 5 mg tablet 10 mg PO BID 09/27/23 ferrous sulfate 325 mg (65 mg 325 mg PO DAILY 09/27/23 10/02/24 iron) tablet naproxen 250 mg tablet 250 mg PO DAILY PRN Pain 1-4 09/27/23 10/02/24 cholecalciferol (vitamin D3) 125 125 mcg PO DAILY 09/0310/02/24 mcg (5,000 unit) tablet (Vitamin D3) gabapentin 300 mg capsule 300 mg PO QPM 09/23/2410/02 Held on 09/30/24. Instructions: Resume on 10/07/24. For one week, you have a different Rx to take the medication three times a day. Then resume the 'once a day at night' dosing. guaifenesin 400 mg tablet 400 mg PO Q4H PRN congestion 09/23/24 10/02/24 valsartan 40 mg tablet 40 mg PO BID 09/23/24 cyclobenzaprine 10 mg tablet 10 mg PO TID PRN Pain 1 w [facility] #21 09/30/24 10/02/24 tabs gabapentin 300 mg capsule 300 mg PO TID PRN pain 1 wee k #21 09/30/24 10/02/24 caps ondansetron 4 mg disintegrating 4 mg translingual Q8H PRN nausea 09/30/24 10/02/24 tablet and vomiting #10 tabs oxycodone 5 mg tablet 5 mg PO TID PRN Pain 5-7 #20 tabs 09/30/24 10/02/24 polyethylene glycol 3350 17 17 g PO BID PRN constipati on #238 09/30/24 10/02/24 gram/dose oral powder grams PHYSICAL EXAM AT DISCHARGE General Appearance: positive No acute distress and Alert Respiratory: positive Chest non-tender and No respiratory distress Cardiovascular: positive Regular rate & rhythm Abdomen: positive Non-tender (dressing clean and dry) and No distention Skin: positive Color nml Extremities: positive Non-tender and Nml appearance Neurologic/Psychiatric: positive Oriented x3 LABS 09/30/24 04:57 09/30/24 04:57 FOLLOW UP Follow Up: Dr. Naranjo 2 weeks TIME SPENT Time Spent in Discharge (Minutes): 30 Discharge Plan Discharge Patient Disposition: Home, Self Care Condition: Good Medically Cleared Date:: 09/30/24 Prescriptions: New cyclobenzaprine 10 mg Tablet 10 mg PO TID PRN (Reason: Pain) 7 Days Qty: 21 0RF gabapentin 300 mg Capsule 300 mg PO TID PRN (Reason: pain) 7 Days Qty: 21 0RF polyethylene glycol 3350 17 gram/dose powder 17 g PO BID PRN (Reason: constipation) Qty: 238 0RF Rx Instructions: use while taking narcotic pain medication ondansetron 4 mg tablet,disintegrating 4 mg translingual Q8H PRN (Reason: nausea and vomiting) Qty: 10 0RF Continued multivitamin 1 EACH tablet 1 tab PO DAILY atorvastatin [Lipitor] 80 MG tablet 80 mg PO DAILY pantoprazole 40 MG tablet,delayed release (DR/EC) 20 mg PO DAILY senna 8.6 MG capsule 17.2 mg PO BID fluticasone propion-salmeterol 1 EACH blister with device 1 ea IH BID metoprolol succinate 100 MG tablet extended release 24 hr 100 mg PO DAILY aspirin [[place] Aspirin] 81 MG tablet,delayed release (DR/EC) 81 mg PO DAILY tamsulosin 0.4 MG capsule 0.8 mg PO DAILY furosemide 20 MG tablet 20 mg PO DAILY PRN (Reason: FLUID RETENTION) diclofenac sodium [Voltaren Arthritis Pain] 5 % gel 1 g TP QID PRN (Reason: Pain 1-4) Spiriva Respimat 4 GM mist 2 puff inhalation DAILY Patient Comments: 2 puffs once a day MelatoninMax 10 MG tablet,chewable 10 mg PO HS ascorbic acid (vitamin C) [Vitamin C] 250 MG tablet 500 mg PO DAILY cyanocobalamin (vitamin B-12) 1,000 MCG capsule 1,000 mcg PO DAILY magnesium citrate,mag oxide 250 MG capsule 250 mg PO DAILY naproxen 250 MG tablet 250 mg PO DAILY PRN (Reason: Pain 1-4) amlodipine 5 MG tablet 10 mg PO BID ferrous sulfate 325 MG tablet 325 mg PO DAILY valsartan 40 mg tablet 40 mg PO BID cholecalciferol (vitamin D3) [Vitamin D3] 125 mcg (5,000 unit) tablet 125 mcg PO DAILY guaifenesin 400 mg tablet 400 mg PO Q4H PRN (Reason: congestion) oxycodone 5 MG tablet 5 mg PO TID PRN (Reason: Pain 5-7) Qty: 20 0RF Held cyclobenzaprine 10 MG tablet 10 mg PO HS Hold Instructions: Resume on 10/07/24. For one week, you have a different Rx to take the medication three times a day. Then resume the 'once a day at night' dosing. gabapentin 300 mg capsule 300 mg PO QPM Hold Instructions: Resume on 10/07/24. For one week, you have a different Rx to take the medication three times a day. Then resume the 'once a day at night' dosing. Activity Restrictions/Additional Instructions: DISCHARGE INSTRUCTIONS * If you are unable to pass gas or bowel movement, and find that your stomach is becoming more bloated and painful, or progressing to vomiting, you must return to the ER. This could be a sign of surgical complication that needs to be evaluated. * Please call the [facility] / Dr. Naranjo's office ([phone]) for any questions or signs of bleeding or infection (redness or drainage at incision, worsening pain/nausea/vomiting/fever). * Go to the Emergency Room after hours for severe symptoms. DIET * You may resume your normal diet if there is no nausea or vomiting. * If nausea or vomiting occurs, don't eat or drink anything for one hour. Then start drinking small amounts of clear liquids. Later, add crackers, gradually building up to your usual diet. ACTIVITY INSTRUCTIONS * No lifting more than 20 pounds for 4 weeks * May shower normally DRESSING CARE * Remove the bandage after 5 days (On Friday09/03/24) * Leave the skin michael in place - they will be removed at your follow up visit * Using supportive garments to reduce surgical site motion will reduce pain MEDICATIONS * Use your home pain medications. * I have prescribed an additional #20 oxycodone pills * Your nightly medications (gabapentin and cyclobenzaprine) maybe taken three times a day for the next week - I have prescribed additional pills for you. * Ondansetron is an antinausea pill that dissolves under the tongue that may be used as needed * Miralax is an additional laxative that can be used along with your regular Senna ANESTHESIA PRECAUTIONS * Anesthesia and medications given during surgery remain in your body up to 24 hours. This may slow reaction time and/or decrease coordination. FOR THE NEXT 24 HOURS: * Have a responsible person with you * Avoid any activity that requires you to be alert and coordinated * DO NOT DRIVE a motor vehicle for 24 hours or as long as you are taking opioid pain medication * Do not drink alcoholic beverages * Do not smoke unattended Patient Date Escort Date RN Date Diet: Regular Print Language: Urdu Patient Instructions: Surg Dc Follow-up Care: TONY ALEXANDER ARNP [Primary Care Provider] - Asia Naranjo DO [Provider Admit Priv/Credential] - 10/11/24 11:15 am"
== END 2024-09-30 18:09 | disposition home or self-care (01) | DRG 921 ==
LOC: SDS 10:24 → MS2 16:57
PROVIDERS: ADMIT Surgery; ATTEND Surgery
DX: J44.9 Chronic obstructive pulmonary disease, unspecified; Z86.0101 Personal history of adenomatous and serrated colon polyps; Z92.3 Personal history of irradiation; E11.9 Type 2 diabetes mellitus without complications; K70.30 Alcoholic cirrhosis of liver without ascites; Y65.8 Other specified misadventures during surgical and medical care; E11.51 Type 2 diabetes mellitus with diabetic peripheral angiopathy without gangrene; E78.5 Hyperlipidemia, unspecified; Z79.82 Long term (current) use of aspirin; Z79.899 Other long term (current) drug therapy; D12.2 Benign neoplasm of ascending colon; Z87.891 Personal history of nicotine dependence; I25.10 Atherosclerotic heart disease of native coronary artery without angina pectoris; D64.9 Anemia, unspecified; K66.0 Peritoneal adhesions (postprocedural) (postinfection); Y92.234 Operating room of hospital as the place of occurrence of the external cause; Z12.11 Encounter for screening for malignant neoplasm of colon; K66.1 Hemoperitoneum; Z85.110 Personal history of malignant carcinoid tumor of bronchus and lung; I10 Essential (primary) hypertension; M54.9 Dorsalgia, unspecified; K91.71 Accidental puncture and laceration of a digestive system organ or structure during a digestive system procedure; G89.29 Other chronic pain; D12.0 Benign neoplasm of cecum

== ENCOUNTER 2024-10-02 06:04 | Inpatient (IN) ==
--- OUTSIDE RECORDS SUMMARY | 2024-10-02 06:41 | EXTERNAL MEDICAL SUMMARY RPT | Continuity of Care Document ---
Author Organization [facility] Address [address] [place] [id number] Phone Problems date description facility 2024-08-18 13:25 Unspecified bacterial pneumonia [facility] 2024-08-19 08:30 [facility] 2024-08-19 08:31 Unspecified bacterial pneumonia [facility] 2024-08-19 15:33 Unspecified bacterial pneumonia [facility] 2024-08-19 15:37 Unspecified bacterial pneumonia [facility] 2024-08-30 08:26 Encounter for screen ing for malignant neoplasm of [facility] 2024-08-30 08:26 Personal history of adenomatous and serrated colon polyps [employer] 2024-09-29 14:07 Personal history of adenomatous and serrated colon polyps [facility] 2024-09-29 14:30 Personal history of adenomatous and serrated colon polyps [facility] 2024-09-29 14:32 Personal history of adenomatous and serrated colon polyps [facility] 2024-09-29 16:57 Personal history of adenomatous and serrated colon polyps [facility] 2024-09-29 18:28 Personal history of adenomatous and serrated colon polyps [facility] 2024-09-29 18:51 Perforation of intestine (nontr aumatic) [facility] 2024-09-29 18:51 Personal history of adenomatous and serrated colon polyps [facility] 2024-09-30 08:32 Perforation of intestine (nontr aumatic) [facility] 2024-09-30 08:32 Personal history of adenomatous and serrated colon polyps [facility] 2024-09-30 08:33 Personal history of adenomatous and serrated colon polyps [facility] 2024-09-30 09:06 Perforation of intestine (nontr aumatic) [employer] 2024-09-30 09:06 Personal history of adenomatous and serrated colon polyps [facility] 2024-09-30 09:07 Personal history of adenomatous and serrated colon polyps [facility] 2024-09-30 12:06 Perforation of intestine (nontr aumatic) [facility] 2024-09-30 12:06 Personal history of adenomatous and serrated colon polyps [facility] 2024-09-30 17:30 Perforation of intestine (nontr aumatic) [facility] 2024-09-30 17:30 Personal history of adenomatous and serrated colon polyps [facility] 2024-09-30 17:31 Personal history of adenomatous and serrated colon polyps [facility] 2024-09-30 18:09 Perforation of intestine (nontr aumatic) [facility] 2024-09-30 18:09 Personal history of adenomatous and serrated colon polyps [employer] Results/Labs test date facility value unit notes Result panel 1 NUCLEATED RED BLOOD CELLS AUTO 2024-09-29 16:20 [facility] 0.0 /100wbc (missing) BASOPHILS # (AUTO) 2024-09-29 16:20 [facility] 0.0 10 3/ul (missing) NRBC ABSOLUTE COUNT (AUTO) 2024-09-29 16:20 [facility] 0.00 x10 3/ul (missing) EOSINOPHILS # (AUTO) 2024-09-29 16:20 [facility] 0.1 10 3/ul (missing) MONOCYTES # (AUTO) 2024-09-29 16:20 [facility] 0.4 10 3/ul (missing) LYMPHOCYTES # (AUTO) 2024-09-29 16:20 [facility] 0.8 10 3/ul (missing) INR 2024-09-29 16:20 [facility] 1.3 (missing ) Oral Anticoagulant Indication INR range Venous Thrombosis, P.E. 2.0 - 3.0 Mechanical Valve 2.5 - 3.5 HGB - HEMOGLOBIN 2024-09-29 16:20 [facility] 11.4 g /dl (missing) PLT - PLATELET COUNT 2024-09-29 16:20 [facility] 127 10 3/ul (missing) RED CELL DISTRIBUTION WIDTH 2024-09-29 16:20 [facility] 14.0 % (mi ssing) PT - PROTHROMBIN TIME 2024-09-29 16:20 [facility] 14.7 secs N MEAN CORPUSCULAR HEMOGLOBIN 2024-09-29 16:20 [facility] 28.0 pg (missing) MEAN CORPUSCULAR HGB CONC 2024-09-29 16:20 [facility] 32.0 g/dl (missing) HCT - HEMATOCRIT 2024-09-29 16:20 [facility] 35.6 % (missing) RED BLOOD COUNT 2024-09-29 16:20 [facility] 4.07 10 6/ul (missing) NEUTROPHILS # (AUTO) 2024-09-29 16:20 [facility] 5.6 10 3/ul (missing) WHITE BLOOD COUNT 2024-09-29 16:20 [facility] 6.9 x10 3/ul (missing) MEAN CORPUSCULAR VOLUME 2024-09-29 16:20 [facility] 87.5 fl (missing) MEAN PLATELET VOLUME 2024-09-29 16:20 [facility] 9.4 fl (missing) Result panel 2 BILIRUBIN,TOTAL 2024-09-29 16:35 [facility] 0.3 mg /dl As of November 2022 testing method has changed, this may include reference ranges. ALBUMIN/GLOBULIN RATIO 2024-09-29 16:35 [facility] 1.5 (missing) (missing) CREATININE 2024-09-29 16:35 [facility] 1.5 mg/dl As of November 2022 testing method has changed, this may include reference ranges. CHLORIDE 2024-09-29 16:35 [facility] 107 mmol/l As of November 2022 testing method has changed, this may include reference ranges. GLUCOSE 2024-09-29 16:35 [facility] 136 mg/dl As of November 2022 testing method has changed, this may include reference ranges. SODIUM 2024-09-29 16:35 [facility] 137 mmol/l (missing) GLOBULIN 2024-09-29 16:35 [facility] 2.2 g/dl (missing) CARBON DIOXIDE - CO2 2024-09-29 16:35 [facility] 23 mmol/l As of November 2022 testing method has changed, this may include reference ranges. AST ASPARTATE AMINOTRANSFERASE 2024-09-29 16:35 [facility] 24 iu/l As of November 2022 testing method has changed, this may include reference ranges. ALT ALANINE AMINOTRANSFERASE 2024-09-29 16:35 [facility] 25 iu/l As of November 2022 testing method has changed, this may include reference ranges. BUN - BLOOD UREA NITROGEN 2024-09-29 16:35 [facility] 25 mg/dl As of Nov testing method has changed, this may include reference ranges. ALBUMIN 2024-09-29 16:35 [facility] 3.3 g/dl As of November 2022 testing method has changed, this may include reference ranges. POTASSIUM 2024-09-29 16:35 [facility] 4.8 mmol/l As of November 2022 testing method has changed, this may include reference ranges. GFR - MDRD 2024-09-29 16:35 [facility] 46 ([facility]) Social History date description facility
[2024-10-02 06:48] LABS: BASOPHILS % (AUTO) 0.3 %; EOSINOPHILS # (AUTO) 0.1 10^3/uL (0.0-0.7); EOSINOPHILS % (AUTO) 0.7 %; HCT - HEMATOCRIT 39.7 % (42.0-52.0); HGB - HEMOGLOBIN 12.4 g/dL (14.0-18.0); LYMPHOCYTES # (AUTO) 0.8 10^3/uL (1.5-3.5); MEAN CORPUSCULAR HEMOGLOBIN 27.7 pg (27.0-31.0); MEAN CORPUSCULAR HGB CONC 31.2 g/dL (32.0-36.0); MEAN CORPUSCULAR VOLUME 88.8 fL (80.0-94.0); MEAN PLATELET VOLUME 9.3 fL (7.4-11.4); MONOCYTES # (AUTO) 0.5 10^3/uL (0.0-1.0); MONOCYTES % (AUTO) 6.8 %; NEUTROPHILS # (AUTO) 6.1 10^3/uL (1.5-6.6); NEUTROPHILS % (AUTO) 80.9 %; PLT - PLATELET COUNT 145 10^3/uL (130-450); RED BLOOD COUNT 4.47 10^6/uL (4.70-6.10); RED CELL DISTRIBUTION WIDTH 14.4 % (12.0-15.0); WHITE BLOOD COUNT 7.5 x10^3/uL (4.8-10.8)
--- NOTE | 2024-10-02 06:54 | ED Physician Documentation ---
PD HPI ABD PAIN Stated complaint Stated Complaint: ABD PX/ POST OP Chief complaint Chief Complaint: Abd Pain Additional information Additional information: BIBA. HPI from EMS, patient. Patient underwent colonoscopy 09/29/2024 which was complicated by perforation and thus underwent colon resection with primary anastamosis. He was discharged the following day. Patient called 911 this morning due to steadily worsening generalized abdominal pain not improved with 5mg oxycodone that he last took at approximately 3 AM this morning. Also notes abdominal distention. Given 100 micrograms fentanyl en route by EMS with improvement; he subsequently desaturated to 80% pulse ox which improved to lower 90s with 2 L/min NC oxygen. Denies nausea, vomiting. He also c/o back pain on my HPI which he indicates is chronic back pain. Meds/Allgy Home Medications Ambulatory Orders Medication Instructions Recorded Confirmed multivitamin 1 tab PO DAILY 01/19/2109/03 atorvastatin 80 mg tablet (Lipitor) 80 mg PO DAILY 09/29/24 pantoprazole 40 mg tablet,delayed 20 mg PO DAILY 11/1609/29/24 release sennosides 8.6 mg capsule (senna) 17.2 mg PO BID 11/1609/29/24 ascorbic acid (vitamin C) 250 mg 500 mg PO DAILY 12/1709/29/24 tablet (Vitamin C) aspirin 81 mg tablet,delayed 81 mg PO DAILY 12/17/22 0 09/29/24 release (Graves Aspirin) cyanocobalamin (vitamin B-12) 1,000 mcg PO DAILY 12/1709/23/24 1,000 mcg capsule cyclobenzaprine 10 mg tablet 10 mg PO HS 12/17/2209/03 Held on 09/30/24. Instructions: Resume on 10/07/24. For one week, you have a different Rx to take the medication three times a day. Then resume the 'once a day at night' dosing. diclofenac sodium 1 % topical gel 1 g TP QID PRN Pain 1-4 12/17/22 09/29/24 (Voltaren Arthritis Pain) fluticasone 250 mcg-salmeterol 50 1 ea IH BID 12/17/22 09/29/24 mcg/dose blistr powdr for inhalation furosemide 20 mg tablet 20 mg PO DAILY PRN FLUID RET ENTION 12/17/22 09/23/24 magnesium citrate,mag oxide 250 mg 250 mg PO DAILY 09/29/24 capsule melatonin 10 mg chewable tablet 10 mg PO HS 12/17/22 0 09/29/24 (MelatoninMax) metoprolol succinate 100 mg 100 mg PO DAILY 12/17/22 0 09/29/24 tablet,extended release 24 hr tamsulosin 0.4 mg capsule 0.8 mg PO DAILY 12/17/22 tiotropium bromide 2.5 2 puff inhalation DAILY 12/0309/23/24 mcg/actuation mist for inhalation (Spiriva Respimat) amlodipine 5 mg tablet 10 mg PO BID 09/27/23 ferrous sulfate 325 mg (65 mg 325 mg PO DAILY 09/27/23 09/29/24 iron) tablet naproxen 250 mg tablet 250 mg PO DAILY PRN Pain 1-4 09/27/23 09/29/24 cholecalciferol (vitamin D3) 125 125 mcg PO DAILY 09/0309/29/24 mcg (5,000 unit) tablet (Vitamin D3) gabapentin 300 mg capsule 300 mg PO QPM 09/23/2409/29 Held on 09/30/24. Instructions: Resume on 10/07/24. For one week, you have a different Rx to take the medication three times a day. Then resume the 'once a day at night' dosing. guaifenesin 400 mg tablet 400 mg PO Q4H PRN congestion 09/23/24 09/29/24 valsartan 40 mg tablet 40 mg PO BID 09/23/24 cyclobenzaprine 10 mg tablet 10 mg PO TID PRN Pain 1 w ruby #21 09/30/24 tabs gabapentin 300 mg capsule 300 mg PO TID PRN pain 1 wee k #21 09/30/24 caps ondansetron 4 mg disintegrating 4 mg translingual Q8H PRN nausea 09/30/24 tablet and vomiting #10 tabs oxycodone 5 mg tablet 5 mg PO TID PRN Pain 5-7 #20 tabs 09/30/24 09/29/24 polyethylene glycol 3350 17 17 g PO BID PRN constipati on #238 09/30/24 gram/dose oral powder grams Allergies Allergies Allergy/AdvReac Type Severity Reaction Status Date / Time BLAS Inhibitors Allergy Severe Edema Verified 10/02/24 06:11 hydrochlorothiazide Allergy Severe kidney Verified 10/02/24 06:11 failure hydrocodone bitartrate * Allergy Intermediate Itching Verified 10/02/24 06:11 (From Vicodin) codeine AdvReac Severe Respiratory Verified 10/02/24 06:11 PFSH Active Problems All Active Problems (Updated 10/02/24 @ 08:37 by Tk Guzman MD) SBO (small bowel obstruction) (Acute) Diabetes type 2 (Acute) Alcoholic cirrhosis of liver (Acute) PVD (peripheral vascular disease) (Acute) Atrial fibrillation (Acute) Hyperlipidemia (Acute) Hypertension (Acute) Anemia (Acute) Chronic back pain (Acute) CAD (coronary artery disease) (Acute) COPD (chronic obstructive pulmonary disease) (Acute) Bursitis, prepatellar, left (Acute) Constipation (Acute) BLAS inhibitor-aggravated angioedema (Acute) Medical History Medical History History of adenomatous polyp of colon (~2022) sessile, >1cm History of OK (myocardial infarction) 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 Mother No problems noted. Brother No problems noted. Social History Social History Smoking Status: Former smoker If you are a former smoker, when did you quit? (Date/Year): APR 2023 Number of Years Smoked: 50 How many cigarettes a day do you smoke? (20 cigarettes=1 Pk): 30 Do you dip or chew tobacco?: No Patient requests smoking cessation consult: No Initiate information on smoking cessation: No Relationship: Level: Independent Do you feel safe in your home environment?: Yes Suffered physical, verbal, emotional, or financial abuse?: No History of Abuse: No Frequency: Daily POLST Patient has POLST: No Exam Exam Vital Signs: Vital Signs x48h Temp Pulse Resp BP Pulse Ox O2 Flow Rate 10/02/24 06:11 36.8 C 80 16 144/68 H 89 L 10/02/24 06:05 94 2 10/02/24 06:00 88 L Constitutional no apparent distress and level of alertness abnormal (drowsy but responds to verbal stimulus) Respiratory breath sounds equal bilaterally and clear to auscultation bilaterally Cardiovascular normal heart rate noted, regular rhythm noted and no murmur Gastrointestinal tender to palpation (moderate diffuse TTP ), tender to percussion, distended and abnormal bowel sounds noted (absent) midline dressing in place Results Vitals Vitals: Vital Signs - 24 hr 10/02/24 06:00 10/02/24 06:05 10/02/24 06:11 Temperature 36.8 C Temperature Source Temporal Artery Scan Pulse Rate 80 Respiratory Rate 16 Blood Pressure 144/68 H O2 Saturation 88 L 94 89 L O2 Source Room air Nasal cannula Room air If not protocol: Oxygen Flow, liters/minute 2 Pain Intensity 8 10/02/24 07:45 Temperature Temperature Source Pulse Rate Respiratory Rate Blood Pressure O2 Saturation O2 Source If not protocol: Oxygen Flow, liters/minute Pain Intensity 9 Oxygen O2 Source Room air Labs Labs: Laboratory Tests 10/02/24 06:45 WBC 7.5 RBC 4.47 L Hgb 12.4 L Hct 39.7 L MCV 88.8 MCH 27.7 MCHC 31.2 L RDW 14.4 Plt Count 145 MPV 9.3 Neut # (Auto) 6.1 Lymph # (Auto) 0.8 L [place] # (Auto) 0.5 Eos # (Auto) 0.1 Baso # (Auto) 0.0 Absolute Nucleated RBC 0.00 Nucleated RBC % 0.0 Sodium 137 Potassium 4.1 Chloride 103 Carbon Dioxide 26 Anion Gap 8.0 BUN 27 H Creatinine 1.6 H Estimated GFR (MDRD) 43 L Glucose 182 H Calcium 9.1 Total Bilirubin 0.5 AST 21 ALT 22 Alkaline Phosphatase 82 Total Protein 6.8 Albumin 3.8 Globulin 3.0 Albumin/Globulin Ratio 1.3 Lipase < 10 L PD Medical Decision Making ED course Complexity details: reviewed old records (reviewed notes from recent [facility] inpatient stay including colonoscopy report), reviewed results, considered differential and d/w patient ED course: Test results pending at end of my shift and thus care of patient turned over to oncoming ED physician (Dr. Guzman). I discussed this case with Dr. Graham shortly after patient's arrival and plan is ED MD will recontact Dr. Graham with test results including CT A/P once they are available. Discharge Plan Discharge Prescriptions: No Action multivitamin 1 EACH tablet 1 tab PO DAILY atorvastatin [Lipitor] 80 MG tablet 80 mg PO DAILY pantoprazole 40 MG tablet,delayed release (DR/EC) 20 mg PO DAILY senna 8.6 MG capsule 17.2 mg PO BID cyclobenzaprine 10 MG tablet 10 mg PO HS fluticasone propion-salmeterol 1 EACH blister with device 1 ea IH BID metoprolol succinate 100 MG tablet extended release 24 hr 100 mg PO DAILY aspirin [Graves Aspirin] 81 MG tablet,delayed release (DR/EC) 81 mg PO DAILY tamsulosin 0.4 MG capsule 0.8 mg PO DAILY furosemide 20 MG tablet 20 mg PO DAILY PRN (Reason: FLUID RETENTION) diclofenac sodium [Voltaren Arthritis Pain] 5 % gel 1 g TP QID PRN (Reason: Pain 1-4) Spiriva Respimat 4 GM mist 2 puff inhalation DAILY Patient Comments: 2 puffs once a day MelatoninMax 10 MG tablet,chewable 10 mg PO HS ascorbic acid (vitamin C) [Vitamin C] 250 MG tablet 500 mg PO DAILY cyanocobalamin (vitamin B-12) 1,000 MCG capsule 1,000 mcg PO DAILY magnesium citrate,mag oxide 250 MG capsule 250 mg PO DAILY naproxen 250 MG tablet 250 mg PO DAILY PRN (Reason: Pain 1-4) amlodipine 5 MG tablet 10 mg PO BID ferrous sulfate 325 MG tablet 325 mg PO DAILY valsartan 40 mg tablet 40 mg PO BID cholecalciferol (vitamin D3) [Vitamin D3] 125 mcg (5,000 unit) tablet 125 mcg PO DAILY gabapentin 300 mg capsule 300 mg PO QPM guaifenesin 400 mg tablet 400 mg PO Q4H PRN (Reason: congestion) cyclobenzaprine 10 mg Tablet 10 mg PO TID PRN (Reason: Pain) 7 Days Qty: 21 0RF gabapentin 300 mg Capsule 300 mg PO TID PRN (Reason: pain) 7 Days Qty: 21 0RF polyethylene glycol 3350 17 gram/dose powder 17 g PO BID PRN (Reason: constipation) Qty: 238 0RF Rx Instructions: use while taking narcotic pain medication ondansetron 4 mg tablet,disintegrating 4 mg translingual Q8H PRN (Reason: nausea and vomiting) Qty: 10 0RF oxycodone 5 MG tablet 5 mg PO TID PRN (Reason: Pain 5-7) Qty: 20 0RF Print Language: Kiswahili Stand Alone Forms: PCP List
[2024-10-02 07:04] LABS: ALBUMIN 3.8 g/dL (3.2-5.5); ALBUMIN/GLOBULIN RATIO 1.3 (1.0-2.2); ALKALINE PHOSPHATASE 82 IU/L (42-121); ALT ALANINE AMINOTRANSFERASE 22 IU/L (10-60); AST ASPARTATE AMINOTRANSFERASE 21 IU/L (10-42); BILIRUBIN,TOTAL 0.5 mg/dL (0.2-1.0); BUN - BLOOD UREA NITROGEN 27 mg/dL (6-20); CALCIUM 9.1 mg/dL (8.5-10.3); CARBON DIOXIDE - CO2 26 mmol/L (21-32); CHLORIDE 103 mmol/L (101-111); CREATININE 1.6 mg/dL (0.6-1.3); GFR - MDRD 43 (>89); GLUCOSE 182 mg/dL (74-104); POTASSIUM 4.1 mmol/L (3.5-4.5); SODIUM 137 mmol/L (135-145); TOTAL PROTEIN 6.8 g/dL (6.4-8.9)
[2024-10-02] MEDS: HYDROmorphone 1 MG/ML CARPUJECT IVP STA (07:45)
[2024-10-02 07:47] LABS: LIPASE < 10 U/L (11-82)
[2024-10-02] MEDS ORDERED: iohexoL-300 100 ML VIAL ONE (07:55)
--- NOTE | 2024-10-02 08:16 | ED Physician Documentation ---
ED Addendum Addendum Addendum: Patient was signed out to me by Dr. Nicholson, briefly this is a 68-year-old gentleman who recently a perforation status post colonoscopy. He then underwent a sigmoid colectomy. He was discharged from the hospital 2 days ago. He states he was doing well until last night when he began to have increasing abdominal swelling, pain and nausea. No vomiting. No diarrhea. He states he ate yogurt yesterday. No fevers or chills. CT scan is being performed. Dr. Nicholson spoke with Dr. Graham this morning, general surgery on-call. CT scan was performed, shows ileus versus small bowel obstruction. NG tube placed with approximately a liter of fluid removed from the patient's stomach. Discussed the case with Dr. Graham and he will admit for further care. Pain well-controlled in the emergency department. This document was made in part using voice recognition software. While efforts are made to proofread this document, sound alike and grammatical errors may occur. Discharge Plan Discharge Patient Disposition: [facility] DC/Xfer Condition: Stable Clinical Impression: SBO (small bowel obstruction) Interventions: ED Admission Assessment Last Done: 10/02/24 11:15
--- NOTE | 2024-10-02 09:31 | CT Report ---
PROCEDURE: CT Abdomen/Pelvis W INDICATIONS: post op abd pain s/p sigmoid resection CONTRAST: 100m omni 300 TECHNIQUE: After the administration of intravenous contrast, a CT scan of the abdomen and pelvis was performed. Images were recorded and evaluated at appropriate window settings. Reformats: coronal and sagittal. For radiation dose reduction, the following was used: automated exposure control, adjustment of mA and/or kV according to patient size. COMPARISON: Correlation is made with prior abdominal CT, 07/23/2023 and abdomen and pelvis CT dated 09/25/2016 FINDINGS: Image quality: There is artifact associated with the metallic hardware. Lower chest: Unremarkable. Liver: No solid mass. Gallbladder: A likely gas containing gallstone is present, as on series [address] findings of cholecystitis are seen. Biliary tree: No intrahepatic or extrahepatic dilation, accounting for age. Spleen: No splenomegaly. Pancreas: No pancreatic ductal dilation. Adrenals: No adrenal nodule. Kidneys and ureters: No hydronephrosis. No renal cystic lesion which requires follow up. No solid mass. Stomach, bowel and peritoneum: Generalized dilatation of small bowel loops can be seen, measuring up to 3 cm. The distal small bowel loops are decompressed. There is a relative transition point seen within the small bowel of the right lower quadrant, as on series 4 image 18 and on series 2 image 84. Distal colonic postoperative change can be seen, with anastomotic staple line. A small amount of free air or free fluid can be seen, which are regarded to be within postoperative limits. No abscess is seen. Distal colonic diverticulosis is seen, without findings of active diverticulitis. There are proximal colon demonstrates no significant abnormality. The stomach is fluid-filled. Lymph nodes: No central or retroperitoneal adenopathy. Vessels: No infrarenal aortic aneurysm. Patent portal vein. Dense atherosclerotic calcification can be seen. PELVIS Reproductive organs: Unremarkable. Bladder: No abnormal wall thickening. Pelvic lymph nodes: No pelvic adenopathy by size criteria. Bones: No aggressive osseous abnormality. Degenerative changes are seen, which are worst at L3-L4 and at L5-S1. Mild levoconvex scoliotic curvature is seen. There is a left hip arthroplasty present, with associated streak artifact. Other: No significant ventral or inguinal hernia. There is an anterior abdominal wall postoperative staple line seen. IMPRESSION: Dilatation of small bowel loops can be seen, which are statistically most likely related to postoperative ileus. However, there is a relative transition point seen within the right lower quadrant and small bowel obstruction is possible. Postoperative change from sigmoid resection can be seen. Additional findings: Apparent gas containing gallstone Diverticulosis, without findings of active diverticulitis. Lower lumbar spine degenerative change Left hip arthroplasty hardware Reviewed by: Chalo Swenson MD on 10/02/2024 8:29 AM [facility] Approved by: Chalo Swenson MD on 10/02/2024 8:29 AM [facility] Station ID: [id number]
[2024-10-02] MEDS ORDERED: ONDANSETRON 4 MG/2 ML VIAL IVP PRN (09:37)
[2024-10-02] MEDS: iohexoL-300 100 ML VIAL IVP ONE (09:49)
--- NOTE | 2024-10-02 09:55 | CONSULTATION NOTE ---
Referring Provider Name of Referring Provider:: Dr. Tk Guzman Consult Date: 10/02/24 Chief Complaint Chief Complaint Chief Complaint: Abdominal pain, nausea and vomiting following surgery History of Present Illness Admitted From Admitted From:: Emergency department History Obtained From Records Reviewed: Yes History obtained from: Chart and patient Exam Limitations: None History of Present Illness HPI Comment/Other: Patient is a very pleasant 68-year-old male who is known to me who presented to the emergency department today following a colonoscopy with polypectomy which was then followed by an exploratory laparotomy sigmoid and sigmoid resection primary anastomosis, liver biopsy and rigid proctoscopy performed on September 29, [address] Asia Naranjo on September 29, 2024. The patient has had the abrupt onset of abdominal distention followed by nausea and vomiting in the past 24 hours. There is been no melena, hematemesis, or hematochezia. PFS Active Problems All Active Problems (Updated 10/02/24 @ 09:47 by Thierry Graham MD) Ileus following gastrointestinal surgery (Acute) Diabetes type 2 (Acute) Alcoholic cirrhosis of liver (Acute) PVD (peripheral vascular disease) (Acute) Atrial fibrillation (Acute) Hyperlipidemia (Acute) Hypertension (Acute) Anemia (Acute) Chronic back pain (Acute) CAD (coronary artery disease) (Acute) COPD (chronic obstructive pulmonary disease) (Acute) Bursitis, prepatellar, left (Acute) Constipation (Acute) BLAS inhibitor-aggravated angioedema (Acute) Medical History Medical History (Updated 10/02/24 @ 09:47 by Thierry Graham MD) Perforation of sigmoid colon History of adenomatous polyp of colon (~2022) sessile, >1cm History of NC (myocardial infarction) 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 Mother No problems noted. Brother No problems noted. Social History Social History (Reviewed 09/29/24 @ 12:27 by CORNELIA Moreno Smoking Status: Former smoker If you are a former smoker, when did you quit? (Date/Year): APR 2023 Number of Years Smoked: 50 How many cigarettes a day do you smoke? (20 cigarettes=1 Pk): 30 Do you dip or chew tobacco?: No Patient requests smoking cessation consult: No Initiate information on smoking cessation: No Relationship: Level: Independent Do you feel safe in your home environment?: Yes Suffered physical, verbal, emotional, or financial abuse?: No History of Abuse: No Frequency: Daily POLST Patient has POLST: No Meds/Allgy Home Medications Ambulatory Orders Medication Instructions Recorded Confirmed multivitamin 1 tab PO DAILY 01/19/2109/03 atorvastatin 80 mg tablet (Lipitor) 80 mg PO DAILY 09/29/24 pantoprazole 40 mg tablet,delayed 20 mg PO DAILY 11/1609/29/24 release sennosides 8.6 mg capsule (senna) 17.2 mg PO BID 11/1609/29/24 ascorbic acid (vitamin C) 250 mg 500 mg PO DAILY 12/1709/29/24 tablet (Vitamin C) aspirin 81 mg tablet,delayed 81 mg PO DAILY 12/17/22 0 09/29/24 release ([place] Aspirin) cyanocobalamin (vitamin B-12) 1,000 mcg PO DAILY 12/1709/23/24 1,000 mcg capsule cyclobenzaprine 10 mg tablet 10 mg PO HS 12/17/2209/03 Held on 09/30/24. Instructions: Resume on 10/07/24. For one week, you have a different Rx to take the medication three times a day. Then resume the 'once a day at night' dosing. diclofenac sodium 1 % topical gel 1 g TP QID PRN Pain 1-4 12/17/22 09/29/24 (Voltaren Arthritis Pain) fluticasone 250 mcg-salmeterol 50 1 ea IH BID 12/17/22 09/29/24 mcg/dose blistr powdr for inhalation furosemide 20 mg tablet 20 mg PO DAILY PRN FLUID RET ENTION 12/17/22 09/23/24 magnesium citrate,mag oxide 250 mg 250 mg PO DAILY 09/29/24 capsule melatonin 10 mg chewable tablet 10 mg PO HS 12/17/22 0 09/29/24 (MelatoninMax) metoprolol succinate 100 mg 100 mg PO DAILY 12/17/22 0 09/29/24 tablet,extended release 24 hr tamsulosin 0.4 mg capsule 0.8 mg PO DAILY 12/17/22 tiotropium bromide 2.5 2 puff inhalation DAILY 12/0309/23/24 mcg/actuation mist for inhalation (Spiriva Respimat) amlodipine 5 mg tablet 10 mg PO BID 09/27/23 ferrous sulfate 325 mg (65 mg 325 mg PO DAILY 09/27/23 09/29/24 iron) tablet naproxen 250 mg tablet 250 mg PO DAILY PRN Pain 1-4 09/27/23 09/29/24 cholecalciferol (vitamin D3) 125 125 mcg PO DAILY 09/0309/29/24 mcg (5,000 unit) tablet (Vitamin D3) gabapentin 300 mg capsule 300 mg PO QPM 09/23/2409/29 Held on 09/30/24. Instructions: Resume on 10/07/24. For one week, you have a different Rx to take the medication three times a day. Then resume the 'once a day at night' dosing. guaifenesin 400 mg tablet 400 mg PO Q4H PRN congestion 09/23/24 09/29/24 valsartan 40 mg tablet 40 mg PO BID 09/23/24 cyclobenzaprine 10 mg tablet 10 mg PO TID PRN Pain 1 w seminole #21 09/30/24 tabs gabapentin 300 mg capsule 300 mg PO TID PRN pain 1 wee k #21 09/30/24 caps ondansetron 4 mg disintegrating 4 mg translingual Q8H PRN nausea 09/30/24 tablet and vomiting #10 tabs oxycodone 5 mg tablet 5 mg PO TID PRN Pain 5-7 #20 tabs 09/30/24 09/29/24 polyethylene glycol 3350 17 17 g PO BID PRN constipati on #238 09/30/24 gram/dose oral powder grams Allergies Allergies Allergy/AdvReac Type Severity Reaction Status Date / Time BLAS Inhibitors Allergy Severe Edema Verified 10/02/24 06:11 hydrochlorothiazide Allergy Severe kidney Verified 10/02/24 06:11 failure hydrocodone bitartrate * Allergy Intermediate Itching Verified 10/02/24 06:11 (From Vicodin) codeine AdvReac Severe Respiratory Verified 10/02/24 06:11 Results Lab Results Lab results reviewed: Yes 10/02/24 06:45 10/02/24 06:45 Other Lab Results: Lab Results x24hrs 10/02/24 Range/Units 06:45 WBC 7.5 (4.8-10.8) x10^3/uL RBC 4.47 L (4.70-6.10) 10^6/uL Hgb 12.4 L (14.0-18.0) g/dL Hct 39.7 L (42.0-52.0) % MCV 88.8 (80.0-94.0) fL MCH 27.7 (27.0-31.0) pg MCHC 31.2 L (32.0-36.0) g/dL RDW 14.4 (12.0-15.0) % Plt Count 145 (130-450) 10^3/uL MPV 9.3 (7.4-11.4) fL Neut # (Auto) 6.1 (1.5-6.6) 10^3/uL Lymph # (Auto) 0.8 L (1.5-3.5) 10^3/uL Starke # (Auto) 0.5 (0.0-1.0) 10^3/uL Eos # (Auto) 0.1 (0.0-0.7) 10^3/uL Baso # (Auto) 0.0 (0.0-0.1) 10^3/uL Absolute Nucleated RBC 0.00 x10^3/uL Nucleated RBC % 0.0 /100WBC Sodium 137 (135-145) mmol/L Potassium 4.1 (3.5-4.5) mmol/L Chloride 103 (101-111) mmol/L Carbon Dioxide 26 (21-32) mmol/L Anion Gap 8.0 (6-13) BUN 27 H (6-20) mg/dL Creatinine 1.6 H (0.6-1.3) mg/dL Estimated GFR (MDRD) 43 L (>89) Glucose 182 H (74-104) mg/dL Calcium 9.1 (8.5-10.3) mg/dL Total Bilirubin 0.5 (0.2-1.0) mg/dL AST 21 (10-42) IU/L ALT 22 (10-60) IU/L Alkaline Phosphatase 82 (42-121) IU/L Total Protein 6.8 (6.4-8.9) g/dL Albumin 3.8 (3.2-5.5) g/dL Globulin 3.0 (2.1-4.2) g/dL Albumin/Globulin Ratio 1.3 (1.0-2.2) Lipase < 10 L (11-82) U/L Diagnostic Imaging Results Diagnostic Imaging Results: positive Final report reviewed and Read contemporaneously Review of Systems Status of ROS: 10 or more systems reviewed and unremarkable except as noted in history and below Exam Exam Vital Signs: Vital Signs x48h Temp Pulse Resp BP Pulse Ox O2 Flow Rate 10/02/24 08:19 88 16 151/89 H 98 10/02/24 06:11 36.8 C 80 16 144/68 H 89 L 10/02/24 06:05 94 2 10/02/24 06:00 88 L The patient was examined in room [address] [facility]'s emergency department. General: 68-year old male, appears stated age, well developed, well nourished HEENT: Normocephalic, atraumatic, extraocular movement intact, mucous membranes pink and moist, sclera anicteric and not injected, nasogastric tube in place draining light yellow-green bile Neck: Supple without pain on palpation, mass or bruit Cardiac: Regular rate and rhythm without rub, gallop, or murmur Chest: Clear to auscultation bilaterally Abdomen: Tensely distended, positive bowel sounds, nonperitoneal, Mepilene dressing in place without drainage Genitourinary: Deferred Rectal: Deferred Extremities: No gross neurovascular problem, no clubbing, cyanosis or edema Gait: Not evaluated Psychiatric: Alert and oriented to person place and time, asks and answers questions appropriately, mood and affect appropriate Conclusion/Plan Problem List (1) Ileus following gastrointestinal surgery: Plan: Admit to the hospital and await for bowel function return. Nasogastric decompression to assist with this. IV opiate for help with back pain as the patient has significant scoliotic and degenerative disease. Increase activity with ambulation to help with bowel function return. I explained to the patient that once his bowel function returns as is evident by passage of gas I will remove the nasogastric tube and feed him and he should be able to go home. I expect that this will take 48 to 72 hours. I have asked him to let us know if there is any way [facility] and he stated that he would. 45 minutes of [id number] time was spent with the patient and and in completion of the medical record CPT 69315-68 Lab Results Lab results reviewed: Yes 10/02/24 06:45 10/02/24 06:45 Diagnostic Imaging Results Diagnostic Imaging Results: positive Final report reviewed and Read contemporaneously
--- NOTE | 2024-10-02 10:04 | XRAY Report ---
PROCEDURE: XR Chest for Line Placement INDICATIONS: Confirm NG tube plcmet TECHNIQUE: One view of the chest was acquired. COMPARISON: 09/26/2023. Correlation is also made with CT, 10/02/2024. FINDINGS: Surgical changes and devices: The tip of the gastric tube can be seen overlying the mid stomach, with the sidehole just below the level of the diaphragm. Lungs and pleura: An incomplete inspiratory result is noted, with low lung volumes and crowding of the vascular markings. No focal infiltrates are seen. No large pneumothorax or large pleural effusion can be seen. Mediastinum: Mediastinal contours appear normal. Heart size is normal. Bones and chest wall: No suspicious bony lesions. Overlying soft tissues appear unremarkable. Excreting contrast can be seen within the right renal collecting system. IMPRESSION: The tip of the nasogastric tube can be seen overlying the mid stomach. Reviewed by: Chalo Swenson MD on 10/02/2024 9:03 AM [facility]ACH[facility] Approved by: Chalo Swenson MD on 10/02/2024 9:03 AM ZACHARY Station ID: [id number]
[2024-10-02] MEDS: DEXTROSE 5%-0.45% NACL 1,000 ML IV SCH (10:15)
--- OUTSIDE RECORDS SUMMARY | 2024-10-02 10:20 | EXTERNAL MEDICAL SUMMARY RPT | Continuity of Care Document ---
Author Organization [facility] Address [address] [place] [address] Phone Problems date description facility 2024-08-18 13:25 Unspecified bacterial pneumonia [facility] 2024-08-19 08:30 [email or web address] 2024-08-19 08:31 [facility] 2024-08-19 15:33 [facility] 2024-08-19 15:37 [facility] 2024-08-30 08:26 [facility]counter for [facility] 08:26 Personal history of adenomatous and serrated colon polyps [email or web address] 2024-09-29 14:07 Personal history of adenomatous and serrated colon [facility]ps [facility]24-[facility]29 14:30 Personal history of adenomatous and serrated colon polyps [facility] 2024-09-29 14:32 Personal history of adenomatous and serrated colon polyps [facility] 2024-09-29 16:57 Personal history of adenomatous and serrated colon [facility]ps [facility] 2024-09-29 18:28 Personal history of adenomatous and serrated colon polyps [facility] 2024-09-29 18:51 Perforation of intestine (nontr aumatic) [facility] 2024-09-29 18:51 Personal history of adenomatous and serrated colon polyps [facility] 2024-09-30 08:32 Perforation of intestine (nontr aumatic) [facility] 2024-09-30 08:32 Personal history of adenomatous and serrated colon polyps [facility] 2024-09-30 08:33 Personal history of adenomatous and serrated colon polyps [facility] 2024-09-30 09:06 Perforation of intestine (nontr aumatic) [email or web address] 2024-09-30 09:06 Personal history of adenomatous and serrated colon polyps [facility] 09:07 Personal history of adenomatous and serrated colon polyps [facility] 2024-[facility]-30 12:06 Perforation of intestine (nontr aumatic) [facility] 2024-09-30 12:06 Personal history of adenomatous and serrated colon polyps [facility] 2024-09-30 17:30 Perforation of intestine (nontr aumatic) [facility] 2024-09-30 17:30 Personal history of adenomatous and serrated colon polyps [facility] 2024-09-30 17:31 Personal history of adenomatous and serrated colon polyps [facility]24-[facility]30 18:09 Perforation of intestine (nontr aumatic) [facility]30 18:09 Personal history of adenomatous and serrated colon polyps [email or web address] Results/Labs test date facility value unit notes Result panel 1 NUCLEATED RED BLOOD CELLS AUTO 2024-09-29 16:20 [facility] 0.0 /100wbc (missing) BASOPHILS # (AUTO) 2024-09-29 16:20 [facility] 0.0 10 3/ul (missing) NRBC ABSOLUTE COUNT (AUTO) 2024-09-29 16:20 [facility] 0.00 x10 3/ul (missing) EOSINOPHILS # (AUTO) 2024-09-29 16:20 [facility] 0.1 10 3/ul (missing) MONOCYTES # (AUTO) 2024-09-29 16:20 [facility] 0.4 10 3/ul (missing) LYMPHOCYTES # (AUTO) 2024-09-29 16:20 [facility] 0.8 10 3/ul (missing) INR 2024-09-29 16:20 [facility] 1.3 (missing ) Oral Anticoagulant Indication INR range Venous Thrombosis, P.E. 2.0 - 3.0 Mechanical Valve 2.5 - 3.5 HGB - HEMOGLOBIN 2024-09-29 16:20 [facility] 11.4 g /dl (missing) PLT - PLATELET COUNT 2024-09-29 16:20 [facility] 127 10 3/ul (missing) RED CELL DISTRIBUTION WIDTH 2024-09-29 16:20 [facility] 14.0 % (mi ssing) PT - PROTHROMBIN TIME 2024-09-29 16:20 [facility] 14.7 secs N MEAN CORPUSCULAR HEMOGLOBIN 2024-09-29 16:20 [facility] 28.0 pg (missing) MEAN CORPUSCULAR HGB CONC 2024-09-29 16:20 [facility] 32.0 g/dl (missing) HCT - HEMATOCRIT 2024-09-29 16:20 [facility] 35.6 % (missing) RED BLOOD COUNT 2024-09-29 16:20 [facility] 4.07 10 6/ul (missing) NEUTROPHILS # (AUTO) 2024-09-29 16:20 [facility] 5.6 10 3/ul (missing) WHITE BLOOD COUNT 2024-09-29 16:20 [facility] 6.9 x10 3/ul (missing) MEAN CORPUSCULAR VOLUME 2024-09-29 16:20 [facility] 87.5 fl (missing) MEAN PLATELET VOLUME 2024-09-29 16:20 [facility] 9.4 fl (missing) Result panel 2 BILIRUBIN,TOTAL 2024-09-29 16:35 [facility] 0.3 mg /dl As of November 2022 testing method has changed, this may include reference ranges. ALBUMIN/GLOBULIN RATIO 2024-09-29 16:35 [facility] 1.5 (missing) (missing) CREATININE 2024-09-29 16:35 [facility] 1.5 mg/dl As of November 2022 testing method has changed, this may include reference ranges. CHLORIDE 2024-09-29 16:35 [facility] 107 mmol/l As of November 2022 testing method has changed, this may include reference ranges. GLUCOSE 2024-09-29 16:35 [facility] 136 mg/dl As of November 2022 testing method has changed, this may include reference ranges. SODIUM 2024-09-29 16:35 [facility] 137 mmol/l (missing) GLOBULIN 2024-09-29 16:35 [facility] 2.2 g/dl (missing) CARBON DIOXIDE - CO2 2024-09-29 16:35 [facility] 23 mmol/l As of November 2022 testing method has changed, this may include reference ranges. AST ASPARTATE AMINOTRANSFERASE 2024-09-29 16:35 [facility] 24 iu/l As of November 2022 testing method has changed, this may include reference ranges. ALT ALANINE AMINOTRANSFERASE 2024-09-29 16:35 [facility] 25 iu/l As of November 2022 testing method has changed, this may include reference ranges. BUN - BLOOD UREA NITROGEN 2024-09-29 16:35 [facility] 25 mg/dl As of Nov testing method has changed, this may include reference ranges. ALBUMIN 2024-09-29 16:35 [facility] 3.3 g/dl As of November 2022 testing method has changed, this may include reference ranges. POTASSIUM 2024-09-29 16:35 [facility] 4.8 mmol/l As of November 2022 testing method has changed, this may include reference ranges. GFR - MDRD 2024-09-29 16:35 [facility] 46 ([facility]) Social History date description facility
[2024-10-02] MEDS: METOPROLOL 5 MG/5 ML VIAL IVP SCH (10:21)
[2024-10-02] MEDS: hydrALAZINE INJ 20 MG/ML VIAL IVP SCH (10:21)
[2024-10-02] MEDS: HYDROmorphone 0.5 MG/0.5 ML SYRINGE IVP PRN (10:22)
--- OUTSIDE RECORDS SUMMARY | 2024-10-02 10:41 | EXTERNAL MEDICAL SUMMARY RPT | Continuity of Care Document ---
Author Organization [facility] Address [address] [place] [address] Phone Problems date description facility 2024-08-18 13:25 Unspecified bacterial pneumonia [facility] [employer] [facility] 2024-08-19 08:30 [facility] 2024-08-19 08:31 [facility] 2024-08-19 15:33 Unspecified bacterial pneumonia [facility] 2024-08-19 15:37 Unspecified bacterial pneumonia [facility] 2024-08-30 08:26 [facility]counter for screen ing [facility] 08:26 Personal history of adenomatous and serrated colon polyps [facility] 2024-09-29 14:07 Personal history of adenomatous and serrated colon [facility]ps [facility] 2024-09-29 14:30 Personal history of adenomatous and serrated colon polyps [employer] [facility] 2024-09-29 14:32 Personal history of adenomatous and serrated colon polyps [employer] [facility] 2024-09-29 16:57 Personal history of adenomatous and serrated colon polyps [facility] 2024-09-29 18:28 Personal history of adenomatous and serrated colon polyps [employer] [facility] 2024-09-29 18:51 Perforation of intestine (nontr aumatic) [employer] [facility] 2024-09-29 18:51 Personal history of adenomatous and serrated colon polyps [facility] 2024-09-30 08:32 Perforation of intestine (nontr aumatic) [employer] [facility] 2024-09-30 08:32 Personal history of adenomatous and serrated colon polyps [facility] 2024-09-30 08:33 Personal history of adenomatous and serrated colon polyps [facility] 2024-09-30 09:06 Perforation of intestine (nontr aumatic) [facility] 2024-09-30 09:06 Personal history of adenomatous and serrated colon polyps [employer] [facility] 2024-09-30 09:07 Personal history of adenomatous and serrated colon polyps [employer] [facility] 2024-09-30 12:06 Perforation of intestine (nontr aumatic) [facility] 2024-09-30 12:06 Personal history of adenomatous and serrated colon polyps [facility] 2024-09-30 17:30 Perforation of intestine (nontr aumatic) [employer] [facility] [employer] [facility] 2024-09-30 17:30 Personal history of adenomatous and serrated colon polyps [employer] [facility] 2024-09-30 17:31 Personal history of adenomatous and serrated colon polyps [facility] 2024-09-30 18:09 Perforation of intestine (nontr aumatic) [employer] [facility] 2024-09-30 18:09 Personal history of adenomatous and serrated colon polyps [facility] 2024-10-02 10:16 Ileus, unspecified [facility] 2024-10-02 10:16 Other postprocedural complications and disorders of digestive system [facility] Results/Labs test date facility value unit notes Result panel 1 NUCLEATED RED BLOOD CELLS AUTO 2024-09-29 16:20 [facility] 0.0 /100wbc (missing) BASOPHILS # (AUTO) 2024-09-29 16:20 [facility] 0.0 10 3/ul (missing) NRBC ABSOLUTE COUNT (AUTO) 2024-09-29 16:20 [facility] 0.00 x10 3/ul (missing) EOSINOPHILS # (AUTO) 2024-09-29 16:20 [facility] 0.1 10 3/ul (missing) MONOCYTES # (AUTO) 2024-09-29 16:20 [facility] 0.4 10 3/ul (missing) LYMPHOCYTES # (AUTO) 2024-09-29 16:20 [facility] 0.8 10 3/ul (missing) INR 2024-09-29 16:20 [facility] 1.3 (missing ) Oral Anticoagulant Indication INR range Venous Thrombosis, P.E. 2.0 - 3.0 Mechanical Valve 2.5 - 3.5 HGB - HEMOGLOBIN 2024-09-29 16:20 [facility] 11.4 g /dl (missing) PLT - PLATELET COUNT 2024-09-29 16:20 [facility] 127 10 3/ul (missing) RED CELL DISTRIBUTION WIDTH 2024-09-29 16:20 [facility] 14.0 % (mi ssing) PT - PROTHROMBIN TIME 2024-09-29 16:20 [facility] 14.7 secs N MEAN CORPUSCULAR HEMOGLOBIN 2024-09-29 16:20 [facility] 28.0 pg (missing) MEAN CORPUSCULAR HGB CONC 2024-09-29 16:20 [facility] 32.0 g/dl (missing) HCT - HEMATOCRIT 2024-09-29 16:20 [facility] 35.6 % (missing) RED BLOOD COUNT 2024-09-29 16:20 [facility] 4.07 10 6/ul (missing) NEUTROPHILS # (AUTO) 2024-09-29 16:20 [facility] 5.6 10 3/ul (missing) WHITE BLOOD COUNT 2024-09-29 16:20 [facility] 6.9 x10 3/ul (missing) MEAN CORPUSCULAR VOLUME 2024-09-29 16:20 [facility] 87.5 fl (missing) MEAN PLATELET VOLUME 2024-09-29 16:20 [facility] 9.4 fl (missing) Result panel 2 BILIRUBIN,TOTAL 2024-09-29 16:35 [facility] 0.3 mg /dl As of November 2022 testing method has changed, this may include reference ranges. ALBUMIN/GLOBULIN RATIO 2024-09-29 16:35 [facility] 1.5 (missing) (missing) CREATININE 2024-09-29 16:35 [facility] 1.5 mg/dl As of November 2022 testing method has changed, this may include reference ranges. CHLORIDE 2024-09-29 16:35 [facility] 107 mmol/l As of November 2022 testing method has changed, this may include reference ranges. GLUCOSE 2024-09-29 16:35 [facility] 136 mg/dl As of November 2022 testing method has changed, this may include reference ranges. SODIUM 2024-09-29 16:35 [facility] 137 mmol/l (missing) GLOBULIN 2024-09-29 16:35 [facility] 2.2 g/dl (missing) CARBON DIOXIDE - CO2 2024-09-29 16:35 [facility] 23 mmol/l As of November 2022 testing method has changed, this may include reference ranges. AST ASPARTATE AMINOTRANSFERASE 2024-09-29 16:35 [facility] 24 iu/l As of November 2022 testing method has changed, this may include reference ranges. ALT ALANINE AMINOTRANSFERASE 2024-09-29 16:35 [facility] 25 iu/l As of November 2022 testing method has changed, this may include reference ranges. BUN - BLOOD UREA NITROGEN 2024-09-29 16:35 [facility] 25 mg/dl As of Nov testing method has changed, this may include reference ranges. ALBUMIN 2024-09-29 16:35 [facility] 3.3 g/dl As of November 2022 testing method has changed, this may include reference ranges. POTASSIUM 2024-09-29 16:35 [facility] 4.8 mmol/l As of November 2022 testing method has changed, this may include reference ranges. GFR - MDRD 2024-09-29 16:35 [facility] 46 ([facility]) Social History date description facility
[2024-10-02 14:34] LABS: BILIRUBIN,URINE NEGATIVE (NEGATIVE); GLUCOSE, URINE (UA) NEGATIVE (NEGATIVE); KETONES,URINE (UA) NEGATIVE (NEGATIVE); LEUKOCYTE ESTERASE, URINE NEGATIVE (NEGATIVE); NITRITE,URINE NEGATIVE (NEGATIVE); OCCULT BLOOD,URINE NEGATIVE (NEGATIVE); PH,URINE 5.5 PH (5.0-7.5); PROTEIN,URINE 100 mg/dL (NEGATIVE); UROBILINOGEN,URINE 0.2 (NORMAL) E.U./dL (NORMAL)
[2024-10-02 14:41] LABS: CLARITY,URINE CLEAR (CLEAR)
[2024-10-02 14:47] LABS: BACTERIA,URINE None Seen /HPF (None Seen); MUCUS,URINE Few Strands; RBC,URINE 0-5 /HPF (0-5); SQUAMOUS EPITHELIAL CELL,UR RARE Squamous (<= Few); WBC,URINE 0-3 /HPF (0-3)
[2024-10-02] MEDS: SODIUM CHLORIDE FLUSH 0.9% 10 ML SYRINGE IVP SCH (20:38)
--- NOTE | 2024-10-03 13:45 | PROVIDER PROGRESS NOTE ---
Subjective General Admit Date: 10/02/24 Procedure Date: 09/29/24 Post Op Days: 4 Procedure Performed: Exploratory Laparotomy, segmental sigmoid resection and primary anastomosis Wound Assessment Wound/Incisions: positive Dressing dry and intact (Mepilex in place) Review of Systems Status of ROS: 10 or more systems reviewed and unremarkable except as noted in history and below Exam Exam Vital Signs: Vital Signs x48h Pulse Pulse Resp BP BP Pulse Ox O2 Flow Rate 10/03/24 08:25 89 20 122/61 94 3 10/03/24 08:20 86 20 131/66 H 94 3 10/03/24 08:15 87 20 129/65 93 3 10/03/24 08:11 103 H 155/74 H The patient was examined in room [address] [facility]'s Med[facility]Surg unit. General: 68-year old male, appears stated age, well developed, well nourished HEENT: Normocephalic, atraumatic, extraocular movement intact, mucous membranes pink and moist, sclera anicteric and not injected, nasogastric tube in place draining dark green bile Neck: Supple without pain on palpation, mass or bruit Cardiac: Regular rate and rhythm without rub, gallop, or murmur Chest: Clear to auscultation bilaterally Abdomen: Markedly less distension but still distended, positive bowel sounds, nonperitoneal, Mepilex dressing in place without drainage Genitourinary: Deferred Rectal: Deferred Extremities: No gross neurovascular problem, no clubbing, cyanosis or edema Gait: Not evaluated Psychiatric: Alert and oriented to person place and time, asks and answers questions appropriately, mood and affect appropriate Impression/Plan Problem List (1) Ileus following gastrointestinal surgery: Plan: Continue nasogastric decompression as we do nothave passage of gas or stool and there is still distension. IV opiate for help with back pain as the patient has significant scoliotic and degenerative disease. Ordered PT to help with ambulation to help with bowel function return. Patient does have claudication. I explained to the patient that once his bowel function returns as is evident by passage of gas I will remove the nasogastric tube and feed him and he should be able to go home. I expect that this will take 48 to 72 hours. Again, I have asked him to let us know if there is any way we can make his stay [facility] more comfortable and he stated that he would. 30 minutes of [id number] time was spent with the patient and and in completion of the medical record CPT 61590-94
--- NOTE | 2024-10-03 16:14 | PT Plan of Care ---
PT Inpatient Plan of Care DIAGNOSIS Diagnosis: POD 4 s/p ex lap with sigmoid resection and primary anastomosis Referring Provider: Thierry Graham Patient Status: Inpatient CHIEF COMPLAINT Chief Complaint: lower abdominal P! 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 PMH includes lung CA and alcoholic cirrhosis, please see chart for complete medical hx. The pt was received resting comfortably supine in bed and presented today with good B UE and LE strength and decreased activity tolerance. There were no apparent safety issues with mobility. At this time the pt does not appear to require continued skilled PT intervention while in the acute setting and it is recommended that he DC home with home therapy once medically stable, however, the pt feels like he can manage on his own without HH. At the end of the session the pt was sitting up in a chair with call light in reach and all needs met. RN updated on pt's status and DC rec, no goals will be set as this is an eval only. PATIENT/FAMILY GOALS Patient/Family Goals: To return home and get stronger GOALS Improve supine to sit to:: Modified Independent Improve sit to stand to:: Modified Independent Improve pivot transfer ability to:: Modified Independent Improve sit to supine to:: Modified Independent PLAN Frequency: Evaluation only, no further P.T. Duration: 2-3 add'l visits DISCHARGE RECOMMENDATIONS Discharge Location: Previous Living Situation Support/Services Needed: Home Health P.T. Other Discharge Equipment: pt owns all recommended DME Transport Needs at Discharge: Personal vehicle
--- NOTE | 2024-10-04 21:57 | PROVIDER PROGRESS NOTE ---
Subjective General Admit Date: 10/02/24 Procedure Date: 09/29/24 Post Op Days: 5 Procedure Performed: Exploratory Laparotomy, segmental sigmoid resection and primary anastomosis Other Other Information/Narrative: Exploratory Laparotomy, segmental sigmoid resection and primary anastomosis, liver biopsy and proctoscopy Ambulating well. No bowel function yet (flatus or bowel movement). Feels better. Wound Assessment Wound/Incisions: positive Dressing dry and intact (Mepilex in place) Review of Systems Status of ROS: 10 or more systems reviewed and unremarkable except as noted in history and below Exam Exam Vital Signs: Vital Signs x48h Temp Pulse Pulse Resp BP BP Pulse Ox 10/04/24 21:19 167/76 H 10/04/24 20:14 103 H 134/89 H 10/04/24 16:37 37.2 C 94 20 167/79 H 95 O2 Flow Rate 10/04/24 21:19 10/04/24 20:14 10/04/24 16:37 0.5 The patient was examined in room 2203 at [facility]'s Med-Surg unit. General: 68-year old male, appears stated age, well developed, well nourished HEENT: Normocephalic, atraumatic, extraocular movement intact, mucous membranes pink and moist, sclera anicteric and not injected, nasogastric tube in place draining dark green bile Neck: Supple without pain on palpation, mass or bruit Cardiac: Regular rate and rhythm without rub, gallop, or murmur Chest: Clear to auscultation bilaterally Abdomen: Markedly less distension but still distended, subjectively softer, positive bowel sounds, nonperitoneal, Mepilex dressing in place without drainage Genitourinary: Deferred Rectal: Deferred Extremities: No gross neurovascular problem, no clubbing, cyanosis or edema Gait: Not evaluated but ambulated 3 times by the time I saw him today Psychiatric: Alert and oriented to person place and time, asks and answers questions appropriately, mood and affect appropriate Impression/Plan Problem List (1) Ileus following gastrointestinal surgery: Plan: Continue nasogastric decompression as we do not have passage of gas or stool and there is still distension. IV opiate for help with back pain as the patient has significant scoliotic and degenerative disease. Signed off on PT note. Patient is doing a good job of ambulating. No sign of infection. The patient asked me again how long I thought he would be in the hospital and I explained to the patient that once his bowel function returns as is evident by passage of gas I will remove the nasogastric tube and feed him and he should be able to go home. It is taking a bit longer than expected. Again, I have asked him to let us know if there is any way we can make his stay [facility] more comfortable and he stated that he would. 30 minutes of [id number] time was spent with the patient and and in completion of the medical record CPT 22392-73
--- NOTE | 2024-10-05 13:18 | PROVIDER PROGRESS NOTE ---
Subjective General Admit Date: 10/02/24 Procedure Date: 09/29/24 Post Op Days: 6 Procedure Performed: Exploratory Laparotomy, segmental sigmoid resection and primary anastomosis Other Other Information/Narrative: Pain controlled. +ambulation. Patient denies flatus or BM. He would like his murray out. No acute events overnight. Wound Assessment Wound/Incisions: positive Dressing dry and intact (Mepilex in place) Exam Exam Vital Signs: Vital Signs x48h Temp Pulse Pulse Resp BP BP BP 10/05/24 08:52 89 154/75 H 10/05/24 07:40 98.2 F 93 18 154/75 H 10/05/24 06:37 149/79 H 10/05/24 06:22 154/80 H 10/05/24 06:20 154/80 H Pulse Ox 10/05/24 08:52 10/05/24 07:40 96 10/05/24 06:37 10/05/24 06:22 10/05/24 06:20 GEN: No acute distress, alert and oriented CV: RRR HEENT: NG in place with 700mL out yesterday PULM: non labored, on RA ABD: soft, +distension, appropriate ttp near incision, no rebound or guarding EXT: no clubbing, cyanosis, or edema Impression/Plan Problem List (1) Ileus following gastrointestinal surgery: Plan: - patient remains distended with relatively high NG output - +ambulation - will add multimodal pain meds to reduce narcotic use as much as possible - using chewing gum - recheck labs today to ensure no electrolyte abnormalities (2) Back pain with sciatica: Plan: Continue prn IV dialudid. I will add scheduled tylenol. Avoid NSAIDs as patient came in with MANDI (3) MANDI (acute kidney injury): Plan: resolving, will recheck lab today - remove murray today Plan Continue inpatient care until return of bowel function, likely 1-2 more days.
[2024-10-05] MEDS ORDERED: DICLOFENAC SODIUM 1% GEL 50 GM TUBE TOP PRN (13:34)
[2024-10-05 13:43] LABS: BASOPHILS % (AUTO) 0.4 %; EOSINOPHILS # (AUTO) 0.1 10^3/uL (0.0-0.7); HCT - HEMATOCRIT 35.2 % (42.0-52.0); HGB - HEMOGLOBIN 11.4 g/dL (14.0-18.0); LYMPHOCYTES # (AUTO) 0.4 10^3/uL (1.5-3.5); MEAN CORPUSCULAR HEMOGLOBIN 27.9 pg (27.0-31.0); MEAN CORPUSCULAR HGB CONC 32.4 g/dL (32.0-36.0); MEAN CORPUSCULAR VOLUME 86.1 fL (80.0-94.0); MEAN PLATELET VOLUME 8.6 fL (7.4-11.4); MONOCYTES # (AUTO) 0.5 10^3/uL (0.0-1.0); MONOCYTES % (AUTO) 10.2 %; NEUTROPHILS % (AUTO) 80.8 %; PLT - PLATELET COUNT 138 10^3/uL (130-450); RED BLOOD COUNT 4.09 10^6/uL (4.70-6.10); RED CELL DISTRIBUTION WIDTH 14.1 % (12.0-15.0)
[2024-10-05 13:57] LABS: CALCIUM 8.4 mg/dL (8.5-10.3); CREATININE 1.5 mg/dL (0.6-1.3); MAGNESIUM 2.2 mg/dL (1.7-2.3); POTASSIUM 3.6 mmol/L (3.5-4.5)
[2024-10-05] MEDS: amLODIPine 5 MG TABLET PO SCH (14:22)
[2024-10-05] MEDS: CYCLOBENZAPRINE 10 MG TABLET PO PRN (14:22)
[2024-10-05] MEDS: ACETAMINOPHEN 1,000 MG/100 ML 1,000 MG/100 ML BAG IV SCH (14:32)
[2024-10-05] MEDS: GABAPENTIN 300 MG CAPSULE PO PRN (15:42)
[2024-10-05] MEDS: FLUTICASONE PROPION SALMETEROL IH SCH (20:04)
[2024-10-05] MEDS: BUDESONIDE 0.5 MG/2 ML NEB INH SCH (20:12)
[2024-10-05] MEDS: IPRATROPIUM 0.2 MG/ML NEB INH SCH (20:12)
[2024-10-05] MEDS: FORMOTEROL FUMARATE NEB 20 MCG/2 ML INH SCH (20:12)
[2024-10-05] MEDS: LOSARTAN 50 MG TABLET PO SCH (20:57)
[2024-10-06] MEDS: PANTOPRAZOLE 40 MG TABLET PO SCH (08:21)
[2024-10-06] MEDS: TAMSULOSIN 0.4 MG CAPSULE PO SCH (08:21)
[2024-10-06] MEDS: ATORVASTATIN 40 MG TABLET PO SCH (08:21)
[2024-10-06] MEDS ORDERED: FUROSEMIDE 20 MG TABLET PO PRN (08:49)
--- NOTE | 2024-10-06 08:59 | PROVIDER PROGRESS NOTE ---
Subjective General Admit Date: 10/02/24 Procedure Date: 09/29/24 Post Op Days: 7 Procedure Performed: Exploratory Laparotomy, segmental sigmoid resection and primary anastomosis Other Other Information/Narrative: NGT output ~500 clear gastric fluids. Clamped this AM for ambulation and meds, <25cc out when replaced to suction. States he has been passing flatus overnight and this morning, also walked this AM at 6 AM. Has been taking sips of water with PO meds last 24hrs, denies nausea/no zofran last 24hrs. Hypertensives but o/w HDN/AF. Morin out yesterday and voiding fine. Wound Assessment Wound/Incisions: positive Healing well and No drainage Review of Systems Status of ROS: 10 or more systems reviewed and unremarkable except as noted in history and below Exam Exam Vital Signs: Vital Signs x48h Pulse Resp BP 10/06/24 08:20 90 132/89 H 10/06/24 08:07 90 16 Constitutional normal general appearance and no apparent distress Respiratory breath sounds equal bilaterally and normal respiratory effort Cardiovascular normal heart rate noted Gastrointestinal Belly still quite distended/tympanic, nontender, dressing removed and staple line is CDI. Extremities normal to inspection Psychiatry oriented x3 Skin skin color normal ABX Reporting Has patient been on IV antibiotics over the past 48 hours?: No Impression/Plan Problem List (1) Ileus following gastrointestinal surgery: Plan: 68M P0D7 s/p exploratory laparotomy, segmental sigmoid resection with primary anastomosis, lysis of adhesions and biopsy of incidentally identified liver nodule, after surveillance colonoscopy complicated by sigmoid perforation. Notable history of now-compensated alcoholic cirrhosis (alcohol abuse in remission) and significant chronic back pain on home multimodal pain regimen including opioids. Readmitted with post-op ileus on 10/02. Early signs of ROBF last 24hrs with starting to pass flatus despite continued distension, and o/w clinically stable. Creatinine @ baseline. - NGT removed on rounds. Clears + protein supp; decreased IVF to 75 - continue multimodal pain meds to reduce narcotic use as much as possible - using chewing gum, ambulating - recheck labs tomorrow - add ppx heparin today - add home darrius Naranjo DO, FACS General Surgeon, [place] (2) Back pain with sciatica:
[2024-10-06] MEDS ORDERED: [UNRECOGNIZED DRUG - OTHER] PO SCH (09:00)
[2024-10-06] MEDS: METOPROLOL 5 MG/5 ML VIAL IVP SCH (09:47)
[2024-10-06] MEDS: HEPARIN 5,000 UNIT/ML VIAL SUBQ SCH (10:00)
[2024-10-06] MEDS: oxyCODONE 5 MG TABLET PO SCH (14:58)
[2024-10-06] MEDS: oxyCODONE ER 10 MG TABLET PO SCH (15:44)
[2024-10-06] MEDS ORDERED: GUAIFENESIN 400 MG PO PRN (19:42)
[2024-10-06] MEDS: guaiFENesin 600 MG TABLET PO PRN (21:53)
[2024-10-07 05:04] LABS: BASOPHILS % (AUTO) 0.4 %; EOSINOPHILS % (AUTO) 1.2 %; HCT - HEMATOCRIT 33.2 % (42.0-52.0); HGB - HEMOGLOBIN 10.7 g/dL (14.0-18.0); LYMPHOCYTES % (AUTO) 9.9 %; MEAN CORPUSCULAR HEMOGLOBIN 27.9 pg (27.0-31.0); MEAN CORPUSCULAR HGB CONC 32.2 g/dL (32.0-36.0); MEAN CORPUSCULAR VOLUME 86.5 fL (80.0-94.0); MEAN PLATELET VOLUME 8.8 fL (7.4-11.4); MONOCYTES % (AUTO) 8.1 %; NEUTROPHILS # (AUTO) 5.4 10^3/uL (1.5-6.6); NEUTROPHILS % (AUTO) 79.5 %; PLT - PLATELET COUNT 178 10^3/uL (130-450); RED BLOOD COUNT 3.84 10^6/uL (4.70-6.10); RED CELL DISTRIBUTION WIDTH 14.1 % (12.0-15.0); WHITE BLOOD COUNT 6.8 x10^3/uL (4.8-10.8)
[2024-10-07 05:05] LABS: EOSINOPHILS # (AUTO) 0.1 10^3/uL (0.0-0.7); LYMPHOCYTES # (AUTO) 0.7 10^3/uL (1.5-3.5); MONOCYTES # (AUTO) 0.6 10^3/uL (0.0-1.0)
[2024-10-07 05:25] LABS: ALBUMIN/GLOBULIN RATIO 1.1 (1.0-2.2); BILIRUBIN,TOTAL 0.6 mg/dL (0.2-1.0); CALCIUM 7.7 mg/dL (8.5-10.3); CREATININE 1.4 mg/dL (0.6-1.3); TOTAL PROTEIN 5.7 g/dL (6.4-8.9)
[2024-10-07] MEDS: POTASSIUM CHLORIDE 20 MEQ TABLET PO ONE (08:35)
--- NOTE | 2024-10-07 09:28 | PROVIDER PROGRESS NOTE ---
Subjective General Admit Date: 10/02/24 Procedure Date: 09/29/24 Post Op Days: 8 Procedure Performed: Exploratory Laparotomy, segmental sigmoid resection and primary anastomosis Other Other Information/Narrative: Pain controlled. +ambulation Voiding without difficulty. Increasing flatus, no BM yet. Taking small amounts of clear liquids without nausea, feeling a little more bloated. Patient reports increased cough over the last couple of days; he smokes 1/2 ppd. Wound Assessment Wound/Incisions: positive Healing well and No drainage Review of Systems Status of ROS: 10 or more systems reviewed and unremarkable except as noted in history and below Exam Exam Vital Signs: Vital Signs x48h Pulse Pulse Resp BP BP 10/07/24 08:49 80 140/64 H 10/07/24 08:46 85 150/72 H 10/07/24 08:39 89 154/69 H 10/07/24 07:35 99 18 10/07/24 04:31 83 118/55 L GEN: No acute distress, alert and oriented CV: RRR HEENT: NG out PULM: non labored, on RA ABD: soft, mild distension, appropriate ttp near incision, no rebound or guarding EXT: no clubbing, cyanosis, or edema Impression/Plan Problem List (1) Ileus following gastrointestinal surgery: Plan: - bowel function returning (+ flatus), distension somewhat improved - tolerating clears, will adat to full liquids today - +ambulation - continue multimodal pain meds to reduce narcotic use as much as possible - continue chewing gum - hypokalemia noted on labs today, replaced. Magnesium level wnl. - patient has been without significant nutrition for 8 days, but is now starting to take some enteral nutrition. Consulting nutrition for low volume protein options. It patient not able to take enough nutrition PO in the next 24-48 hours, will need to start parenteral nutrition. (2) Back pain with sciatica: Plan: Continue prn IV dialudid. I will add scheduled tylenol. Avoid NSAIDs as patient came in with [facility]ANDI (3) Smoker: Plan: - increased cough. IS and RT consult ordered - encouraged good pulm toilet - patient is splinting to cough Plan Continue inpatient care until return of bowel function, likely 1-2 more days.
[2024-10-07] MEDS: SODIUM CHLORIDE FLUSH 0.9% 10 ML SYRINGE IVP PRN (10:53)
[2024-10-07] MEDS: ACETAMINOPHEN 325 MG TABLET PO SCH (17:42)
[2024-10-08 08:17] LABS: MAGNESIUM 1.6 mg/dL (1.7-2.3)
[2024-10-08 08:22] LABS: CALCIUM 8.1 mg/dL (8.5-10.3); CREATININE 1.4 mg/dL (0.6-1.3); POTASSIUM 3.7 mmol/L (3.5-4.5)
--- NOTE | 2024-10-08 08:31 | PROVIDER PROGRESS NOTE ---
Progress Note Progress Note Progress Note: General Surgery Progress Note S: Feels fine; Minimal abdominal discomfort. Ambulatory. Passing stool and flatus last night but became distended again this morning. No nausea or vomiting. Really wants to go home. O: VSS, afeb; AAO; Abdominal midline incision clean with michael in place. No cellulitis or drainage anywhere about the wound. Abdomen is soft with active bowel sounds. No tenderness, hernias, or palpable masses. AM Labs: K 3.7; Na 136; BUN 17; Cr 1.4; Glu 123; Mg 1.6 (low) Yesterday CBC WNL A: Post-op ileus continues. Hypomagnesiemia may be contributing P: Continue FLD; Ambulate; KUB; IV to SL; IV magnesium this morning; Reassess later this morning for possible discharge this afternoon. Britton Mercado MD, FACS General Surgery Service
--- NOTE | 2024-10-08 09:01 | XRAY Report ---
PROCEDURE: XR Abdomen 1 V INDICATIONS: Abdominal distension TECHNIQUE: One view of the abdomen acquired. COMPARISON: CT of abdomen and pelvis dated 10/02/2024. FINDINGS: Surgical changes and devices: Skin michael are noted in midline abdominal wall. Multiple vascular stents are noted. There is prior right arthroplasty. Bowel: Mild to moderate fecal stasis in the colon is seen. Air distended bowel loops are also noted in abdomen. No gross free air. Soft tissues: No suspicious abdominal calcifications. Visualized solid organ contours appear normal in size. Bones: No suspicious bony lesions. IMPRESSION: Finding may represent low-grade postop ileus suggest clinical correlation and follow-up. Mild to moderate constipation. No gross free air. Reviewed by: Lex Cuenca MD on 10/08/2024 9:00 AM PDT Approved by: Lex Cuenca MD on 10/08/2024 9:00 AM PDT Station ID: [id number]
[2024-10-08] MEDS: METOPROLOL SUCCINATE 50 MG TABLET PO SCH (09:02)
[2024-10-08] MEDS: MAGNESIUM SULFATE 1 GM in SODIUM CHLORIDE 0.9% 50 ML IV ONE (09:03)
--- NOTE | 2024-10-08 11:33 | PROVIDER PROGRESS NOTE ---
Progress Note Progress Note Progress Note: General Surgery Progress Note Magnesium low - IV replacement ordered. KUB - mostly large bowel gaseous distension. He has chronic back pain and this is likely related to current and chronic opioid use. He is 9 days post-op. I will order one dulcolax suppository today. Britton Mercado MD, FACS General Surgery Service
[2024-10-08] MEDS: BISACODYL 10 MG SUPP PR ONE (12:31)
--- NOTE | 2024-10-09 06:31 | PROVIDER PROGRESS NOTE ---
Progress Note Progress Note Progress Note: General Surgery Progress Note S: Tolerating PO intake; Incision and back pain under control with limited opioid use (unable to take Acetaminophen or NSAID's due to liver disease). Passing large amounts of flatus O: VS: BP 147/58; P 72; T 37; RR 16 Lungs clear; Heart NSR; Abdomen soft but with gaseous distension consistent with chronic opioid induced bowel dysmotility A: Ready for discharge P: Discharge to home; May shower over michael; Continue diet as tolerated but eat slowly and drink plenty of water; Continue all usual home meds; FU Surgery clinic per prior arrangements Britton Mercado MD, FACS General Surgery Service
[2024-10-09 09:34] VITALS: BP 134/69; TEMP 97.3; O2SAT 92
--- NOTE | 2024-10-12 16:32 | Discharge Summary ---
"Discharge Summary Admit Date: 10/02/24 Discharge Date: 10/09/24 Discharging Provider: Jess Code Status: Attempt Resuscitation DIAGNOSES Admission Diagnoses: Post-op ileus Discharge Diagnoses with Status of Each Condition: Post-op ileus - resolved HPI History of Present Illness: Yomi is a 68 year old male who underwent laprotomy with oversew of a perforated colon on 09/29/2024. He was discharged the next day and returned to the ED on 10/02/2024 with abdominal distension and bloating. A post-op ileus was diagnosed and the patient was admitted for NGT decompression and IV support until return of bowel function. CONSULTS | PROCEDURES Procedures: None HOSPITAL COURSE Hospital Course: NGT decompression of the GI tract was initiated on the first hospital day and continued until he was able to pass flatus and tolerate clear liquids. PT assisted with ambulation which he did multiple times daily. He has a need for chronic opioid use due to back pain and this was continued while an inpatient. Over the next few days, he began to pass flatus and small amount of stool. he was tolerating a full liquid diet and requested discharge. He was discharged on 10/09/2024. ALLERGIES Allergies Allergy/AdvReac Type Severity Reaction Status Date / Time BLAS Inhibitors Allergy Severe Edema Verified 10/02/24 06:11 hydrochlorothiazide Allergy Severe kidney Verified 10/02/24 06:11 failure hydrocodone bitartrate * Allergy Intermediate Itching Verified 10/02/24 06:11 (From Vicodin) codeine AdvReac Severe Respiratory Verified 10/02/24 06:11 MEDICATIONS Ambulatory Orders Medication Instructions Recorded Confirmed multivitamin 1 tab PO DAILY 01/19/21/01/27 atorvastatin 80 mg tablet (Lipitor) 80 mg PO DAILY 10/11/24 pantoprazole 40 mg tablet,delayed 20 mg PO DAILY 11/1610/11/24 release sennosides 8.6 mg capsule (senna) 17.2 mg PO BID 11/1610/11/24 ascorbic acid (vitamin C) 250 mg 500 mg PO DAILY 12/1710/11/24 tablet (Vitamin C) aspirin 81 mg tablet,delayed 81 mg PO DAILY 12/17/22 0 10/11/24 release ([place] Aspirin) cyanocobalamin (vitamin B-12) 1,000 mcg PO DAILY 12/1710/11/24 1,000 mcg capsule cyclobenzaprine 10 mg tablet 10 mg PO HS 12/17/2201/27 diclofenac sodium 1 % topical gel 1 g TP QID PRN Pain 1-4 12/17/22 10/11/24 (Voltaren Arthritis Pain) fluticasone 250 mcg-salmeterol 50 1 ea IH BID 12/17/22 10/11/24 mcg/dose blistr powdr for inhalation furosemide 20 mg tablet 20 mg PO DAILY PRN FLUID RET ENTION 12/17/22 10/11/24 magnesium citrate,mag oxide 250 mg 250 mg PO DAILY 10/11/24 capsule melatonin 10 mg chewable tablet 10 mg PO HS 12/17/22 0 10/11/24 (MelatoninMax) metoprolol succinate 100 mg 100 mg PO DAILY 12/17/22 0 10/11/24 tablet,extended release 24 hr tamsulosin 0.4 mg capsule 0.8 mg PO DAILY 12/17/2201/27 tiotropium bromide 2.5 2 puff inhalation DAILY 12/0310/11/24 mcg/actuation mist for inhalation (Spiriva Respimat) amlodipine 5 mg tablet 10 mg PO BID 09/27/23 ferrous sulfate 325 mg (65 mg 325 mg PO DAILY 09/27/23 10/11/24 iron) tablet naproxen 250 mg tablet 250 mg PO DAILY PRN Pain 1-4 09/27/23 10/11/24 cholecalciferol (vitamin D3) 125 125 mcg PO DAILY 09/0310/11/24 mcg (5,000 unit) tablet (Vitamin D3) gabapentin 300 mg capsule 300 mg PO QPM 09/23/2410/11 guaifenesin 400 mg tablet 400 mg PO Q4H PRN congestion 09/23/24 10/11/24 valsartan 40 mg tablet 40 mg PO BID 09/23/24 ondansetron 4 mg disintegrating 4 mg translingual Q8H PRN nausea 09/30/24 10/11/24 tablet and vomiting #10 tabs oxycodone 5 mg tablet 5 mg PO TID PRN Pain 5-7 #20 tabs 09/30/24 10/11/24 polyethylene glycol 3350 17 17 g PO BID PRN constipati on #238 09/30/24 10/11/24 gram/dose oral powder grams amoxicillin 875 mg-potassium 1 tab PO Q12H 10 days #20 tabs 10/11/24 10/11/24 clavulanate 125 mg tablet PHYSICAL EXAM AT DISCHARGE Vital Signs: Normal General Appearance: positive No acute distress Eyes Bilateral: positive Normal inspection and PERRL ENT: positive No signs of dehydration Neck: positive Nml inspection Respiratory: positive No respiratory distress and Breath sounds nml Cardiovascular: positive Regular rate & rhythm and No murmur Abdomen: positive Non-tender, No organomegaly, Nml bowel sounds and Other (Mild gaseous distension) Back: positive Nml inspection Skin: positive Color nml Extremities: positive Full ROM Neurologic/Psychiatric: positive Oriented x3 LABS 10/07/24 04:50 10/08/24 08:03 FOLLOW UP Follow Up: Dr Naranjo 10/11/2024 TIME SPENT Time Spent in Discharge (Minutes): 30 Discharge Plan Discharge Patient Disposition: Home, Self Care Condition: Stable Prescriptions: Continued multivitamin 1 EACH tablet 1 tab PO DAILY atorvastatin [Lipitor] 80 MG tablet 80 mg PO DAILY pantoprazole 40 MG tablet,delayed release (DR/EC) 20 mg PO DAILY senna 8.6 MG capsule 17.2 mg PO BID cyclobenzaprine 10 MG tablet 10 mg PO HS fluticasone propion-salmeterol 1 EACH blister with device 1 ea IH BID metoprolol succinate 100 MG tablet extended release 24 hr 100 mg PO DAILY aspirin [[place] Aspirin] 81 MG tablet,delayed release (DR/EC) 81 mg PO DAILY tamsulosin 0.4 MG capsule 0.8 mg PO DAILY furosemide 20 MG tablet 20 mg PO DAILY PRN (Reason: FLUID RETENTION) diclofenac sodium [Voltaren Arthritis Pain] 5 % gel 1 g TP QID PRN (Reason: Pain 1-4) Spiriva Respimat 4 GM mist 2 puff inhalation DAILY Patient Comments: 2 puffs once a day MelatoninMax 10 MG tablet,chewable 10 mg PO HS ascorbic acid (vitamin C) [Vitamin C] 250 MG tablet 500 mg PO DAILY cyanocobalamin (vitamin B-12) 1,000 MCG capsule 1,000 mcg PO DAILY magnesium citrate,mag oxide 250 MG capsule 250 mg PO DAILY naproxen 250 MG tablet 250 mg PO DAILY PRN (Reason: Pain 1-4) amlodipine 5 MG tablet 10 mg PO BID ferrous sulfate 325 MG tablet 325 mg PO DAILY valsartan 40 mg tablet 40 mg PO BID cholecalciferol (vitamin D3) [Vitamin D3] 125 mcg (5,000 unit) tablet 125 mcg PO DAILY gabapentin 300 mg capsule 300 mg PO QPM guaifenesin 400 mg tablet 400 mg PO Q4H PRN (Reason: congestion) polyethylene glycol 3350 17 gram/dose powder 17 g PO BID PRN (Reason: constipation) Qty: 238 0RF Rx Instructions: use while taking narcotic pain medication ondansetron 4 mg tablet,disintegrating 4 mg translingual Q8H PRN (Reason: nausea and vomiting) Qty: 10 0RF oxycodone 5 MG tablet 5 mg PO TID PRN (Reason: Pain 5-7) Qty: 20 0RF No Action amoxicillin-pot clavulanate 875-125 mg tablet 1 tab PO Q12H 10 Days Qty: 20 0RF Activity Restrictions: Activity as Tolerated Activity Restrictions/Additional Instructions: May shower and get wound and michael wet; Pad dry; Cover with dressing if irritated by clothing Be active but remember, if it hurts to do, don't do it. Diet: Regular Print Language: Macanese Patient Instructions: Deep Breathing, Colorectal Surg Recovery Stand Alone Forms: PCP List Follow-up Care: Asia Naranjo DO [Provider Admit Priv/Credential] - (As per prior arrangements)"
== END 2024-10-09 10:10 | disposition home or self-care (01) | DRG 394 ==
LOC: ED 06:04 → MS2 10:15 → UNDODISIN 10-09 07:51
PROVIDERS: ADMIT Surgery; ATTEND Surgery
DX: Z79.899 Other long term (current) drug therapy; I25.10 Atherosclerotic heart disease of native coronary artery without angina pectoris; E78.5 Hyperlipidemia, unspecified; G89.29 Other chronic pain; K56.7 Ileus, unspecified; Z79.82 Long term (current) use of aspirin; J44.9 Chronic obstructive pulmonary disease, unspecified; Y83.6 Removal of other organ (partial) (total) as the cause of abnormal reaction of the patient, or of later complication, without mention of misadventure at the time of the procedure; Z90.49 Acquired absence of other specified parts of digestive tract; I10 Essential (primary) hypertension; E11.51 Type 2 diabetes mellitus with diabetic peripheral angiopathy without gangrene; K91.89 Other postprocedural complications and disorders of digestive system; N17.9 Acute kidney failure, unspecified; M54.30 Sciatica, unspecified side; F17.210 Nicotine dependence, cigarettes, uncomplicated